=== PATIENT | female | born 1935 | race Caucasian/White ===

== ENCOUNTER 2016-12-25 12:13 | Outpatient (CLI) | payer MEDICARE, OTHER ==
--- NOTE | 2016-12-25 14:51 | MRI Report ---
EXAM: MRI CERVICAL SPINE WITHOUT CONTRAST EXAM DATE: 12/25/2016 12:55 PM. CLINICAL HISTORY: Cervical spine pain. Right upper extremity radiculopathy. COMPARISONS: None. TECHNIQUE: Multiplanar, multisequence T1-weighted and fluid-sensitive sequences of the cervical spine without contrast. Other: None. FINDINGS: Neurologic Structures: There is no evidence for focal cord signal abnormality or edema or other intri nsic cervical cord lesion including where the cord is mildly compressed by disk herniations at multip le levels as described below. Alignment: Slight degenerative anterolisthesis of C4 on C5. Bone Marrow: No focal pathologic appearing marrow signal changes. Interspace Levels/Facets: C1-C2: No central stenosis. Mild chronic hypertrophic degenerative changes around the odontoid proces s. C2-C3: Minimal degenerative disk disease. No stenosis. C3-C4: Mild disk space narrowing. Minimal central stenosis. Broad-based bar-like posterior degenerati ve disk osteophyte complex is present with ventral thecal sac indentation but no cord compression. Mo derate facet arthropathy. Moderate bilateral foraminal stenosis from uncinate process spurring and fa cet hypertrophy. C4-C5: Moderate degenerative disk disease. Mild to moderate facet arthropathy. Broad-based bulge and marginal spurring. More focal 8 x 4 mm disk extrusion laterally to the right, centered at the junctio n of the lateral recess and right neural foramen. The ventral cord is mildly compressed also by this lesion. Mild to moderate central stenosis. The left foramen shows at least mild stenosis. Foraminal s tenosis and right lateral recess stenosis are moderate to marked, correlating to a right C5 radiculop athy. The right side disk herniation also appears to be accompanied by osteophytic degenerative albaro nal bony spurring. C5-C6: Mild disk space narrowing. Moderate central stenosis. Ventral cord flattening. Broad-based pro minent bar-like posterior degenerative disk osteophyte complex with additional smaller more focal lef t posterior paracentral disk herniation or extrusion. Foraminal stenosis bilaterally, mild on the lef t and moderate on the right from additional right intraforaminal disk/osteophyte complex. This could correlate with a right C6 radiculopathy. C6-C7: Mild degenerative disk disease and facet arthropathy. Broad-based bulge. No high-grade stenosi s. C7-T1: Unremarkable. Musculature: Mild diffuse posterior paraspinal muscle fatty atrophy. Other: No focal prevertebral soft tissue thickening. IMPRESSION: Prominent multilevel degenerative cervical spinal spondylosis. The most significant and p rominent appearing degenerative changes with stenosis that may be associated with radiculopathy are o n the right at the C4-C5 and C5-C6 levels as described above. [facility] Referring Provider Line: [phone] SITE ID: [id number]
== END 2016-12-25 12:14 | disposition home or self-care (01) ==
LOC: DI 12:13
PROVIDERS: ATTEND Physician Assistant Medical
DX: M50.31 Other cervical disc degeneration, high cervical region (principal); M47.812 Spondylosis without myelopathy or radiculopathy, cervical region; M50.221 Other cervical disc displacement at C4-C5 level
CPT/HCPCS: 72141

== ENCOUNTER 2017-01-03 08:27 | Outpatient (CLI) | payer MEDICARE, OTHER | END 2017-01-03 08:28 | disposition home or self-care (01) | DX: E03.9 Hypothyroidism, unspecified (principal); I25.10 Atherosclerotic heart disease of native coronary artery without angina pectoris; I10 Essential (primary) hypertension; D64.9 Anemia, unspecified; Z79.899 Other long term (current) drug therapy ==

== ENCOUNTER 2017-01-22 10:10 | Outpatient (CLI) | payer MEDICARE, OTHER | END 2017-01-22 10:11 | disposition home or self-care (01) | DX: Z12.31 Encounter for screening mammogram for malignant neoplasm of breast (principal) ==

== ENCOUNTER 2017-01-22 10:12 | Outpatient (CLI) | payer MEDICARE, OTHER | END 2017-01-22 10:13 | disposition home or self-care (01) | DX: Z78.0 Asymptomatic menopausal state (principal); M85.88 Other specified disorders of bone density and structure, other site ==

== ENCOUNTER 2017-03-05 08:00 | Outpatient (CLI) | payer MEDICARE, OTHER | END 2017-03-05 08:01 | disposition home or self-care (01) | LOC: LAB.R 08:00 | PROVIDERS: ATTEND Physician Assistant Medical | DX: M10.9 Gout, unspecified (principal) | CPT/HCPCS: 84550 ==

== ENCOUNTER 2017-03-05 12:14 | Outpatient (CLI) | payer MEDICARE, OTHER ==
--- NOTE | 2017-03-05 18:43 | XRAY Report ---
RIGHT FOOT, THREE VIEWS: 03/05/2017 CLINICAL HISTORY: An 82-year-old female with foot pain and history of gout. COMPARISON: None. FINDINGS: Focal soft tissue swelling is noted around the medial aspect of the right foot adjacent to the base of the right first metatarsal and adjacent medial cuneiform bone. Focal spurring is seen along the distal medial dorsal aspect of the medial cuneiform bone. No significant erosive change is detected in the adjacent articulation between the base of the first metatarsal and adjacent medial cuneiform bone. No significant joint space narrowing is noted. The MP joints appear normal as do the proximal and distal interphalangeal joints. IMPRESSION: 1. FOCAL SOFT TISSUE SWELLING IS SUGGESTED ALONG THE MEDIAL ASPECT OF THE RIGHT FOOT AT THE ARTICULATION BETWEEN THE BASE OF THE FIRST METATARSAL AND ADJACENT MEDIAL CUNEIFORM BONE. A SMALL SPUR IS SEEN EMANATING FROM THE MEDIAL DORSAL ASPECT OF THE MEDIAL CUNEIFORM BONE. THE SPURRING IS RELATED TO OSTEOARTHRITIS. 2. MP JOINTS INCLUDING THE FIRST MP JOINT APPEAR NORMAL. JOB #: [id number] EXT JOB #: [id number] ASHLIE
== END 2017-03-05 12:15 | disposition home or self-care (01) ==
LOC: DI 12:14
PROVIDERS: ATTEND Physician Assistant Medical
DX: M25.774 Osteophyte, right foot (principal); R22.41 Localized swelling, mass and lump, right lower limb; M10.9 Gout, unspecified
CPT/HCPCS: 84550

== ENCOUNTER 2017-05-03 09:30 | Outpatient (CLI) | payer MEDICARE, OTHER ==
[2017-05-03 12:52] LABS: BASOPHILS # (AUTO) 0.1 10^3/uL (0.0-0.1); EOSINOPHILS # (AUTO) 0.1 10^3/uL (0.0-0.7); EOSINOPHILS % (AUTO) 2.8 %; HCT - HEMATOCRIT 40.2 % (37.0-47.0); HGB - HEMOGLOBIN 13.5 g/dL (12.0-16.0); LYMPHOCYTES # (AUTO) 1.5 10^3/uL (1.5-3.5); LYMPHOCYTES % (AUTO) 28.4 %; MEAN CORPUSCULAR HGB CONC 33.6 g/dL (32.0-36.0); MEAN CORPUSCULAR VOLUME 101.4 fL (81.0-99.0); MEAN PLATELET VOLUME 9.5 fL (7.9-10.8); MONOCYTES # (AUTO) 0.6 10^3/uL (0.0-1.0); MONOCYTES % (AUTO) 11.1 %; NEUTROPHILS % (AUTO) 56.7 %; NUCLEATED RED BLOOD CELLS AUTO 0.1 /100WBC; RED BLOOD COUNT 3.96 10^6/uL (4.20-5.40); RED CELL DISTRIBUTION WIDTH 14.6 % (12.0-15.0); UNCORRECTED WHITE BLOOD COUNT 5.3 x10^3/uL; WHITE BLOOD COUNT 5.3 x10^3/uL (4.8-10.8)
== END 2017-05-03 09:31 | disposition home or self-care (01) ==
LOC: LAB.R 09:30
PROVIDERS: ATTEND Internal Medicine
DX: D50.9 Iron deficiency anemia, unspecified (principal)
CPT/HCPCS: 82728; 85025

== ENCOUNTER 2018-01-07 09:05 | Outpatient (CLI) | payer MEDICARE, OTHER ==
[2018-01-07 13:18] LABS: BASOPHILS % (AUTO) 1.1 %; EOSINOPHILS # (AUTO) 0.1 10^3/uL (0.0-0.7); EOSINOPHILS % (AUTO) 3.2 %; HGB - HEMOGLOBIN 13.8 g/dL (12.0-16.0); LYMPHOCYTES # (AUTO) 1.1 10^3/uL (1.5-3.5); LYMPHOCYTES % (AUTO) 27.1 %; MEAN CORPUSCULAR HEMOGLOBIN 33.1 pg (27.0-31.0); MEAN CORPUSCULAR VOLUME 100.2 fL (81.0-99.0); MEAN PLATELET VOLUME 9.4 fL (7.9-10.8); MONOCYTES # (AUTO) 0.5 10^3/uL (0.0-1.0); MONOCYTES % (AUTO) 12.6 %; NEUTROPHILS # (AUTO) 2.3 10^3/uL (1.5-6.6); PLT - PLATELET COUNT 195 10^3/uL (130-450); RED BLOOD COUNT 4.18 10^6/uL (4.20-5.40); RED CELL DISTRIBUTION WIDTH 13.6 % (12.0-15.0); WHITE BLOOD COUNT 4.1 x10^3/uL (4.8-10.8)
[2018-01-07 13:30] LABS: ALBUMIN 4.3 g/dL (3.2-5.5); ALBUMIN/GLOBULIN RATIO 1.5 (1.0-2.2); BILIRUBIN,TOTAL 0.5 mg/dL (0.2-1.0); CALCIUM 9.7 mg/dL (8.5-10.3); CREATININE 0.9 mg/dL (0.4-1.0); TOTAL PROTEIN 7.1 g/dL (6.7-8.2); URIC ACID 3.9 mg/dL (2.6-7.2)
[2018-01-07 13:45] LABS: THYROID STIMULATING HORMONE 3.84 uIU/mL (0.34-5.60)
[2018-01-07 13:51] LABS: FERRITIN 65.4 ng/mL (11.0-306.8)
== END 2018-01-07 09:06 | disposition home or self-care (01) ==
LOC: LAB.R 09:05
PROVIDERS: ATTEND Internal Medicine
DX: D50.9 Iron deficiency anemia, unspecified (principal); I10 Essential (primary) hypertension; M10.9 Gout, unspecified; E03.9 Hypothyroidism, unspecified
CPT/HCPCS: 80053; 82728; 84443; 84550; 85025

== ENCOUNTER 2019-07-07 09:08 | Outpatient (CLI) | payer MEDICARE, OTHER ==
[2019-07-07 10:03] LABS: CHOL/HDL RATIO 1.9 (<4.4); CHOLESTEROL 169 mg/dL; HDL CHOLESTEROL 90 mg/dL; LDL CHOLESTEROL,CALCULATED 64 mg/dL; LDL/HDL RATIO 0.7 (<4.4); VLDL CHOLESTEROL 15 mg/dL
== END 2019-07-07 09:09 | disposition home or self-care (01) ==
LOC: LAB 09:08
PROVIDERS: ATTEND Family Medicine
DX: Z13.220 Encounter for screening for lipoid disorders (principal); Z13.6 Encounter for screening for cardiovascular disorders
CPT/HCPCS: 36415; 80061; 83721

== ENCOUNTER 2019-09-04 11:47 | Outpatient (CLI) | payer MEDICARE, OTHER ==
[2019-09-04 12:10] LABS: BASOPHILS % (AUTO) 0.8 %; EOSINOPHILS # (AUTO) 0.1 10^3/uL (0.0-0.7); EOSINOPHILS % (AUTO) 2.1 %; HGB - HEMOGLOBIN 11.1 g/dL (12.0-16.0); LYMPHOCYTES # (AUTO) 1.1 10^3/uL (1.5-3.5); MEAN CORPUSCULAR HEMOGLOBIN 29.8 pg (27.0-31.0); MEAN CORPUSCULAR HGB CONC 31.6 g/dL (32.0-36.0); MEAN CORPUSCULAR VOLUME 94.1 fL (81.0-99.0); MEAN PLATELET VOLUME 10.4 fL (7.9-10.8); MONOCYTES # (AUTO) 0.6 10^3/uL (0.0-1.0); MONOCYTES % (AUTO) 15.8 %; PLT - PLATELET COUNT 203 10^3/uL (130-450); RED BLOOD COUNT 3.73 10^6/uL (4.20-5.40); RED CELL DISTRIBUTION WIDTH 15.7 % (12.0-15.0); WHITE BLOOD COUNT 3.8 x10^3/uL (4.8-10.8)
== END 2019-09-04 11:48 | disposition home or self-care (01) ==
LOC: LAB 11:47
PROVIDERS: ATTEND Nurse Practitioner
DX: D50.9 Iron deficiency anemia, unspecified (principal)
CPT/HCPCS: 36415; 85025

== ENCOUNTER 2019-11-19 10:25 | Outpatient (CLI) | payer MEDICARE, OTHER | END 2019-11-19 10:26 | disposition home or self-care (01) | LOC: LAB 10:25 | PROVIDERS: ATTEND Family Medicine | DX: E03.9 Hypothyroidism, unspecified (principal); D50.9 Iron deficiency anemia, unspecified | CPT/HCPCS: 36415; 84443 ==

== ENCOUNTER 2019-12-26 07:20 | Emergency (ER) | payer MEDICARE, OTHER ==
[2019-12-26 07:28] VITALS: BP 168/77
--- NOTE | 2019-12-26 07:34 | ED Physician Documentation ---
PD HPI URI - Stated complaint Stated Complaint: COUGH - Chief complaint Chief Complaint: General - History obtained from History obtained from: Patient - History of Present Illness Timing - onset: Last night Timing duration: Days (1) Timing details: Gradual onset, Still present Associated symptoms: Nasal congestion, Dry cough. No: Fever, Rhinorrhea, Swollen nodes, NVD, Bilateral edema Contributing factors: Sick contact (The patient states her has had a cough congestion and increasing trouble breathing over the last 5 or 6 days and worsened yesterday. He was seen and admitted for pneumonia. He was tested for flu as well as COVID but his test has not resulted yet. The patient was not a llowed to visit her for concern of potential carrier of COVID and they suggested she get tested.). No: Travel, Immunocompromised Similar symptoms before: Has not had sx before Recently seen: Not recently seen Review of Systems Constitutional: denies: Fever, Chills, Myalgias Nose: reports: Congestion (mild). denies: Rhinorrhea / runny nose Throat: denies: Sore throat Cardiac: denies: Chest pain / pressure Respiratory: reports: Cough. 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 HEENT: Cataracts - Present Medications Home Medications: Ambulatory Orders Medication Instructions Recorded Confirmed Aspirin [Children's Aspirin] 81 mg PO DAILY 01/11/15 09/28/16 Calcium Carbonate [Calcium] 1,200 mg PO DAILY 01/11/15 09/28/16 Flaxseed [Flaxseed Oil] 1 cap PO DAILY 01/11/15 09/28/16 Levothyroxine [Synthroid] 112 mcg PO QDAC 01/11/15 09/28/16 Metoprolol Succinate [Toprol Xl] 25 mg PO DAILY 01/11/15 09/28/16 Multivitamin [Multivitamins] 1 each PO DAILY 01/11/15 09/28/16 Omeprazole [PriLOSEC] 25 mg PO DAILY 01/11/15 09/28/16 Telmisartan [Micardis] 80 mg PO DAILY 01/11/15 09/28/16 Tolterodine Tartrate [Detrol LA] 2 mg ORAL DAILY 01/11/15 09/28/16 predniSONE [Prednisone] 15 mg PO DAILY 09/28/16 09/28/16 - Allergies Allergies/Adverse Reactions: Allergies Allergy/AdvReac Type Severity Reaction Status Date / Time meperidine HCl * Allergy Intermediate Hives Verified 09/29/16 09:51 [From Demerol] Iodine and Iodide Containing Allergy Mild Rash Verified 09/29/16 09:51 Produc PD ED PE NORMAL - Vitals Vital signs reviewed: Yes - General General: Alert and oriented X 3, No acute distress, Well developed/nourished - HEENT HEENT: Ears normal, Pharynx benign - Neck Neck: Supple, no meningeal sign, No adenopathy - Cardiac Cardiac: RRR, No murmur - Respiratory Respiratory: Clear bilaterally - Abdomen Abdomen: Soft, Non tender - Derm Derm: Normal color, Warm and dry - Neuro Neuro: Alert and oriented X 3, No motor deficit, Normal speech Results - Vitals Vitals: Vital Signs - 24 hr 12/26/19 07:26 Temperature 36.9 C Heart Rate 79 Respiratory 18 Rate Blood Pressure 168/77 H O2 Saturation 96 Oxygen O2 Source Room air PD MEDICAL DECISION MAKING - ED course Complexity details: considered differential (The patient is just started with a cough. Her however is hospitalized with pneumonia and had cough and congestion for 5 or 6 days. We can test her for CO VID to evaluate for that. Her 's test has not resulted yet. This will allow her some anticipatory guidance regarding potential illness and also if negative will allow her access to visit her .), d/w patient Departure - Departure Disposition: 01 Home, Self Care Clinical Impression: Cough Condition: Stable Record reviewed to determine appropriate education?: Yes Instructions: ED URI Viral Follow-Up: Davin Pineda MD [Primary Care Provider] - Comments: The result of the COV ID test will be 1 to 2 days. Hopefully if you and your 's tests are negative, then that will allow your access to visit him. Meanwhile stay well-hydrated. We will presume this is a viral illness of some sort. [id number] cough medicine if needed. Otherwise return if worsening symptoms or trouble breathing.
== END 2019-12-26 08:15 | disposition home or self-care (01) ==
LOC: ED 07:20
DX: R05 Cough (principal); R09.81 Nasal congestion; I10 Essential (primary) hypertension; Z79.82 Long term (current) use of aspirin
CPT/HCPCS: 81599; 99283

== ENCOUNTER 2020-06-08 14:20 | Outpatient (CLI) | payer MEDICARE, OTHER ==
[2020-06-08 18:23] LABS: BASOPHILS % (AUTO) 0.7 %; EOSINOPHILS % (AUTO) 0.7 %; HGB - HEMOGLOBIN 7.2 g/dL (12.0-16.0); LYMPHOCYTES # (AUTO) 1.2 10^3/uL (1.5-3.5); LYMPHOCYTES % (AUTO) 26.5 %; MEAN CORPUSCULAR HEMOGLOBIN 22.9 pg (27.0-31.0); MEAN CORPUSCULAR HGB CONC 29.4 g/dL (32.0-36.0); MEAN CORPUSCULAR VOLUME 77.8 fL (81.0-99.0); MEAN PLATELET VOLUME 11.3 fL (7.9-10.8); MONOCYTES # (AUTO) 0.7 10^3/uL (0.0-1.0); NEUTROPHILS # (AUTO) 2.4 10^3/uL (1.5-6.6); NEUTROPHILS % (AUTO) 55.6 %; PLT - PLATELET COUNT 225 10^3/uL (130-450); RED BLOOD COUNT 3.15 10^6/uL (4.20-5.40); RED CELL DISTRIBUTION WIDTH 20.7 % (12.0-15.0); WHITE BLOOD COUNT 4.4 x10^3/uL (4.8-10.8)
[2020-06-08 18:27] LABS: CREATININE,URINE 124.9 mg/dL; MICROALBUM/CREATININE RATIO,UR 5.6 ug/mg (<30.0); MICROALBUMIN,URINE 0.7 mg/dL (0-300.0)
[2020-06-08 18:31] LABS: ALBUMIN 3.8 g/dL (3.2-5.5); ALBUMIN/GLOBULIN RATIO 1.4 (1.0-2.2); BILIRUBIN,TOTAL 0.5 mg/dL (0.2-1.0); CALCIUM 9.5 mg/dL (8.5-10.3); CREATININE 0.7 mg/dL (0.4-1.0); TOTAL PROTEIN 6.5 g/dL (6.7-8.2)
[2020-06-08 18:56] LABS: PLATELET ESTIMATE, MANUAL NORMAL (130-450,000) (NORMAL); PLATELET MORPHOLOGY NORMAL APPEARANCE (NORMAL)
== END 2020-06-08 23:59 | disposition home or self-care (01) ==
LOC: LAB.WCP 14:20
PROVIDERS: ATTEND Physician Assistant Medical
DX: I10 Essential (primary) hypertension (principal); E03.9 Hypothyroidism, unspecified; D50.9 Iron deficiency anemia, unspecified
CPT/HCPCS: 36415; 80053; 82043; 82570; 84443; 85025

== ENCOUNTER 2020-06-16 16:58 | Outpatient (CLI) | payer MEDICARE, OTHER ==
[2020-06-16 18:21] LABS: ABSOLUTE RETICS # AUTO 0.046 10^6/uL (0.020-0.110); EOSINOPHILS # (AUTO) 0.1 10^3/uL (0.0-0.7); EOSINOPHILS % (AUTO) 1.8 %; HGB - HEMOGLOBIN 7.3 g/dL (12.0-16.0); LYMPHOCYTES # (AUTO) 1.4 10^3/uL (1.5-3.5); MEAN CORPUSCULAR HEMOGLOBIN 22.1 pg (27.0-31.0); MEAN CORPUSCULAR HGB CONC 29.1 g/dL (32.0-36.0); MEAN CORPUSCULAR VOLUME 76.1 fL (81.0-99.0); MEAN PLATELET VOLUME 11.1 fL (7.9-10.8); MONOCYTES # (AUTO) 0.7 10^3/uL (0.0-1.0); MONOCYTES % (AUTO) 17.1 %; NEUTROPHILS # (AUTO) 1.8 10^3/uL (1.5-6.6); NEUTROPHILS % (AUTO) 45.8 %; PLT - PLATELET COUNT 240 10^3/uL (130-450); RED CELL DISTRIBUTION WIDTH 20.4 % (12.0-15.0)
[2020-06-16 18:39] LABS: PLATELET ESTIMATE, MANUAL NORMAL (130-450,000) (NORMAL); PLATELET MORPHOLOGY NORMAL APPEARANCE (NORMAL)
[2020-06-16 18:57] LABS: % IRON SATURATION 2 % (20-50); IRON 10 ug/dL (28-170); TOTAL IRON BINDING CAPACITY 448 ug/dL (250-450); TRANSFERRIN 320 mg/dL (192-382)
[2020-06-16 19:03] LABS: FERRITIN 12.4 ng/mL (11.0-306.8)
[2020-06-16 19:51] LABS: FOLATE > 49.60 ng/mL (5.90 - >24.8)
== END 2020-06-16 23:59 | disposition home or self-care (01) ==
LOC: LAB.WCP 16:58
PROVIDERS: ATTEND Physician Assistant Medical
DX: D50.9 Iron deficiency anemia, unspecified (principal)
CPT/HCPCS: 36415; 82607; 82728; 82746; 83540; 84466; 85025; 85045

== ENCOUNTER 2020-06-23 08:00 | Outpatient (CLI) | payer MEDICARE, OTHER | END 2020-06-23 23:59 | disposition home or self-care (01) | LOC: LAB 08:00 | PROVIDERS: ATTEND Physician Assistant Medical | DX: D50.9 Iron deficiency anemia, unspecified (principal) | CPT/HCPCS: 82270 ==

== ENCOUNTER 2020-07-19 11:48 | Outpatient (CLI) | payer MEDICARE, OTHER ==
[2020-07-19 12:14] LABS: HGB - HEMOGLOBIN 7.4 g/dL (12.0-16.0); MEAN CORPUSCULAR HEMOGLOBIN 21.9 pg (27.0-31.0); MEAN CORPUSCULAR HGB CONC 29.1 g/dL (32.0-36.0); MEAN CORPUSCULAR VOLUME 75.1 fL (81.0-99.0); MEAN PLATELET VOLUME 9.6 fL (7.9-10.8); RED BLOOD COUNT 3.38 10^6/uL (4.20-5.40); RED CELL DISTRIBUTION WIDTH 20.7 % (12.0-15.0); WHITE BLOOD COUNT 4.4 x10^3/uL (4.8-10.8)
== END 2020-07-19 11:49 | disposition home or self-care (01) ==
LOC: LAB 11:48
PROVIDERS: ATTEND Surgery
DX: R19.7 Diarrhea, unspecified (principal); R60.9 Edema, unspecified
CPT/HCPCS: 36415; 85027

== ENCOUNTER 2020-07-28 10:49 | Outpatient (CLI) | payer MEDICARE, OTHER ==
[2020-07-28 11:07] LABS: BASOPHILS % (AUTO) 0.6 %; EOSINOPHILS % (AUTO) 0.6 %; HGB - HEMOGLOBIN 8.9 g/dL (12.0-16.0); LYMPHOCYTES # (AUTO) 1.4 10^3/uL (1.5-3.5); LYMPHOCYTES % (AUTO) 28.2 %; MEAN CORPUSCULAR HEMOGLOBIN 23.8 pg (27.0-31.0); MEAN CORPUSCULAR HGB CONC 29.3 g/dL (32.0-36.0); MEAN CORPUSCULAR VOLUME 81.3 fL (81.0-99.0); MEAN PLATELET VOLUME 9.6 fL (7.9-10.8); MONOCYTES # (AUTO) 0.6 10^3/uL (0.0-1.0); MONOCYTES % (AUTO) 11.4 %; NEUTROPHILS % (AUTO) 58.4 %; PLT - PLATELET COUNT 244 10^3/uL (130-450); RED BLOOD COUNT 3.74 10^6/uL (4.20-5.40); RED CELL DISTRIBUTION WIDTH 28.3 % (12.0-15.0); WHITE BLOOD COUNT 5.1 x10^3/uL (4.8-10.8)
[2020-07-28 11:25] LABS: CALCIUM 10.1 mg/dL (8.5-10.3); CREATININE 0.9 mg/dL (0.4-1.0)
[2020-07-28 11:32] LABS: PLATELET ESTIMATE, MANUAL NORMAL (130-450,000) (NORMAL); PLATELET MORPHOLOGY NORMAL APPEARANCE (NORMAL); RBC MORPHOLOGY (MULTIPLE) 3+ ANISOCYTOSIS (NORMAL)
== END 2020-07-28 10:50 | disposition home or self-care (01) ==
LOC: LAB 10:49
PROVIDERS: ATTEND Physician Assistant Medical
DX: D50.9 Iron deficiency anemia, unspecified (principal); R60.9 Edema, unspecified
CPT/HCPCS: 36415; 80048; 82728; 83540; 84466; 85025

== ENCOUNTER 2020-08-06 12:27 | Day surgery (SDC) | payer MEDICARE, OTHER ==
[2020-08-06] MEDS ORDERED: fentaNYL 100 MCG/2 ML VIAL IVP ONE (12:28)
[2020-08-06] MEDS ORDERED: MIDAZOLAM 2 MG/2 ML VIAL IVP ONE (12:28)
[2020-08-06] MEDS ORDERED: LIDO GARGLE 30 ML BOTTLE ONE (12:49)
[2020-08-06] MEDS ORDERED: LACTATED RINGERS 1,000 ML IV ONE ×2 (13:02)
[2020-08-06] MEDS ORDERED: LIDO GARGLE 30 ML BOTTLE PO ONE (13:20)
[2020-08-06] MEDS ORDERED: BENZOCAINE/TETRACAINE/BUTAMBEN 20 GM TOP ONE (13:21)
[2020-08-06] MEDS ORDERED: LACTATED RINGERS 550 ML IV ONE (13:50)
[2020-08-06 14:20] VITALS: BP 128/59
== END 2020-08-06 12:28 | disposition home or self-care (01) ==
LOC: SDS 12:27
PROVIDERS: ATTEND Surgery
PROC: 0DB78ZX Excision of Stomach, Pylorus, Via Natural or Artificial Opening Endoscopic, Diagnostic (ICD-10-PCS; 2020-08-06)
PROC: 0DB68ZX Excision of Stomach, Via Natural or Artificial Opening Endoscopic, Diagnostic (ICD-10-PCS; 2020-08-06)
PROC: 0DB58ZX Excision of Esophagus, Via Natural or Artificial Opening Endoscopic, Diagnostic (ICD-10-PCS; 2020-08-06)
PROC: 0DB98ZX Excision of Duodenum, Via Natural or Artificial Opening Endoscopic, Diagnostic (ICD-10-PCS; principal; 2020-08-06 10:45)
DX: D50.9 Iron deficiency anemia, unspecified (principal); R13.10 Dysphagia, unspecified; K31.7 Polyp of stomach and duodenum; K44.9 Diaphragmatic hernia without obstruction or gangrene; Z79.899 Other long term (current) drug therapy; Z86.010 Personal history of colon polyps
CPT/HCPCS: 43239; 87081; A9270; J7120

== ENCOUNTER 2020-08-10 13:28 | Outpatient (CLI) | payer MEDICARE, OTHER | END 2020-08-10 13:29 | disposition home or self-care (01) | LOC: DI 13:28 | PROVIDERS: ATTEND Physician Assistant Medical | DX: R60.0 Localized edema (principal); I34.0 Nonrheumatic mitral (valve) insufficiency; I27.20 Pulmonary hypertension, unspecified | CPT/HCPCS: 93306 ==

== ENCOUNTER 2020-08-25 08:00 | Outpatient (CLI) | payer MEDICARE, OTHER ==
[2020-08-25 18:10] LABS: ABSOLUTE RETICS # AUTO 0.062 10^6/uL (0.020-0.110); BASOPHILS % (AUTO) 0.4 %; EOSINOPHILS % (AUTO) 0.8 %; HGB - HEMOGLOBIN 11.2 g/dL (12.0-16.0); LYMPHOCYTES # (AUTO) 1.5 10^3/uL (1.5-3.5); LYMPHOCYTES % (AUTO) 30.7 %; MEAN CORPUSCULAR HEMOGLOBIN 28.2 pg (27.0-31.0); MEAN CORPUSCULAR HGB CONC 30.9 g/dL (32.0-36.0); MEAN CORPUSCULAR VOLUME 91.2 fL (81.0-99.0); MEAN PLATELET VOLUME 10.4 fL (7.9-10.8); MONOCYTES # (AUTO) 0.4 10^3/uL (0.0-1.0); MONOCYTES % (AUTO) 8.9 %; NEUTROPHILS # (AUTO) 2.9 10^3/uL (1.5-6.6); NEUTROPHILS % (AUTO) 58.8 %; PLT - PLATELET COUNT 168 10^3/uL (130-450); RED BLOOD COUNT 3.97 10^6/uL (4.20-5.40); WHITE BLOOD COUNT 4.9 x10^3/uL (4.8-10.8)
[2020-08-25 18:38] LABS: % IRON SATURATION 28 % (20-50); IRON 92 ug/dL (28-170); TOTAL IRON BINDING CAPACITY 323 ug/dL (250-450); TRANSFERRIN 231 mg/dL (192-382)
[2020-08-25 18:44] LABS: FREE T3 3.26 pg/mL (2.5-3.9); THYROID STIMULATING HORMONE 0.23 uIU/mL (0.34-5.60)
[2020-08-25 18:45] LABS: FREE T4 (FREE THYROXINE) 1.07 ng/dL (0.58-1.64)
[2020-08-25 18:50] LABS: FERRITIN 83.2 ng/mL (11.0-306.8)
[2020-08-25 22:06] LABS: PLATELET ESTIMATE, MANUAL NORMAL (130-450,000) (NORMAL); PLATELET MORPHOLOGY NORMAL APPEARANCE (NORMAL)
== END 2020-08-25 23:59 | disposition home or self-care (01) ==
LOC: LAB.WCP 08:00
PROVIDERS: ATTEND Family Medicine
DX: D50.9 Iron deficiency anemia, unspecified (principal); E03.9 Hypothyroidism, unspecified
CPT/HCPCS: 36415; 82728; 83540; 84439; 84443; 84466; 84481; 85025; 85045

== ENCOUNTER 2020-08-26 10:00 | Outpatient (CLI) | payer MEDICARE, OTHER | END 2020-08-26 23:59 | disposition home or self-care (01) | LOC: LAB.R 10:00 | PROVIDERS: ATTEND Family Medicine | DX: A04.72 Enterocolitis due to Clostridium difficile, not specified as recurrent (principal) | CPT/HCPCS: 87493 ==

== ENCOUNTER 2020-12-24 13:53 | Inpatient (IN) | payer MEDICARE, OTHER ==
[2020-12-24 14:32] LABS: BASOPHILS % (AUTO) 0.2 %; EOSINOPHILS # (AUTO) 0.2 10^3/uL (0.0-0.7); EOSINOPHILS % (AUTO) 2.8 %; HGB - HEMOGLOBIN 12.4 g/dL (12.0-16.0); LYMPHOCYTES # (AUTO) 0.5 10^3/uL (1.5-3.5); LYMPHOCYTES % (AUTO) 9.4 %; MEAN CORPUSCULAR HGB CONC 32.6 g/dL (32.0-36.0); MEAN CORPUSCULAR VOLUME 104.1 fL (81.0-99.0); MEAN PLATELET VOLUME 10.6 fL (7.9-10.8); MONOCYTES # (AUTO) 0.3 10^3/uL (0.0-1.0); MONOCYTES % (AUTO) 5.4 %; NEUTROPHILS # (AUTO) 4.7 10^3/uL (1.5-6.6); NEUTROPHILS % (AUTO) 81.9 %; PLT - PLATELET COUNT 157 10^3/uL (130-450); RED BLOOD COUNT 3.65 10^6/uL (4.20-5.40); RED CELL DISTRIBUTION WIDTH 17.4 % (12.0-15.0); WHITE BLOOD COUNT 5.7 x10^3/uL (4.8-10.8)
[2020-12-24 14:41] LABS: BILIRUBIN,URINE NEGATIVE (NEGATIVE); GLUCOSE, URINE (UA) NEGATIVE (NEGATIVE); KETONES,URINE (UA) NEGATIVE (NEGATIVE); LEUKOCYTE ESTERASE, URINE NEGATIVE (NEGATIVE); NITRITE,URINE NEGATIVE (NEGATIVE); OCCULT BLOOD,URINE NEGATIVE (NEGATIVE); PROTEIN,URINE NEGATIVE (NEGATIVE); UROBILINOGEN,URINE 0.2 (NORMAL) E.U./dL (NORMAL)
[2020-12-24 14:42] LABS: CLARITY,URINE CLEAR (CLEAR)
[2020-12-24 14:49] LABS: ALBUMIN 4.2 g/dL (3.2-5.5); ALBUMIN/GLOBULIN RATIO 1.5 (1.0-2.2); CALCIUM 9.8 mg/dL (8.5-10.3); POTASSIUM 3.2 mmol/L (3.5-5.0)
[2020-12-24] MEDS ORDERED: IOVERSOL 320 100 ML VIAL IVP ONE ×2 (14:56→16:02)
[2020-12-24] MEDS ORDERED: MORPHINE 2 MG/ML CARPUJECT IVP STA ×2 (15:28→17:10)
--- NOTE | 2020-12-24 15:29 | ED Physician Documentation ---
PD HPI ABD PAIN - Stated complaint Stated Complaint: ABD PX - Chief complaint Chief Complaint: Abd Pain - History obtained from History obtained from: Patient - History of Present Illness Timing - onset: Last night Pain level max: 8 Pain level now: 6 Quality: Aching, Pain Location: RLQ, Suprapubic, LLQ Associated symptoms: No: Fever, Nausea, Vomiting - Additional information Additional information: Patient is an 85-year-old female who presents to the emergency department with lower abdominal pain starting last night and worsening throughout the day. She had a colonoscopy yesterday at [place] in [place] with [facility], Dr. Joseph. No vomiting. No diarrhea. She states she is not passing much flatus. She is urinating without difficulty. She talked to the on-call hot top liner who referred her here for a CT scan. Worse with movement and palpation. Nothing makes it better. 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 HEENT: Cataracts - Present Medications Home Medications: Ambulatory Orders Medication Instructions Recorded Confirmed Calcium Carbonate [Calcium] 1,200 mg PO DAILY 01/11/15 11/24/20 Levothyroxine [Synthroid] 100 mcg PO QDAC 01/11/15 11/24/20 Metoprolol Succinate [Toprol Xl] 50 mg PO DAILY 01/11/15 11/24/20 Multivitamin [Multivitamins] 1 each PO DAILY 01/11/15 11/24/20 Omeprazole [PriLOSEC] 25 mg PO DAILY 01/11/15 11/24/20 Tolterodine Tartrate [Detrol LA] 2 mg ORAL DAILY 01/11/15 11/24/20 Allopurinol [Zyloprim] 1 tab PO DAILY 08/05/20 11/24/20 Furosemide [Lasix] 40 mg PO DAILY 08/05/20 11/24/20 Potassium Chloride 10 meq PO DAILY 08/05/20 11/24/20 Valsartan [Diovan] 160 mg PO DAILY 08/05/20 11/24/20 - Allergies Allergies/Adverse Reactions: Allergies Allergy/AdvReac Type Severity Reaction Status Date / Time meperidine HCl * Allergy Intermediate Hives Verified 12/24/20 13:56 [From Demerol] Iodine and Iodide Containing Allergy Mild Rash Verified 12/24/20 13:56 Produc - Social History Does the pt smoke?: No Smoking Status: Never smoker Does the pt drink ETOH?: Yes Does the pt have substance abuse?: No - Immunizations Immunizations are current?: Yes PD ED PE NORMAL - Vitals Vital signs reviewed: Yes - General General: Alert and oriented X 3, No acute distress - HEENT HEENT: Moist mucous membranes - Neck Neck: Supple, no meningeal sign - Cardiac Cardiac: RRR - Respiratory Respiratory: No respiratory distress, Clear bilaterally - Abdomen Abdomen: Soft, Non distended, Other (Tender to palpation along the lower aspect of the abdomen. Positive guarding. Positive rebound.) - Back Back: No spinal TTP - Derm Derm: Warm and dry - Extremities Extremities: No calf tenderness / cord - Neuro Neuro: Alert and oriented X 3 - Psych Psych: Normal mood, Normal affect Results - Vitals Vitals: Vital Signs - 24 hr 12/24/20 12/24/20 13:56 15:55 Temperature 36.8 C Heart Rate 91 82 Respiratory 19 15 Rate Blood Pressure 142/69 H 150/64 H O2 Saturation 98 95 Oxygen O2 Source Room air - Labs Labs: Laboratory Tests 12/24/20 12/24/20 12/24/20 14:15 14:24 14:24 WBC 5.7 RBC 3.65 L Hgb 12.4 Hct 38.0 MCV 104.1 H MCH 34.0 H MCHC 32.6 RDW 17.4 H Plt Count 157 MPV 10.6 Neut # (Auto) 4.7 Lymph # (Auto) 0.5 L Hamb[place] # (Auto) 0.3 Eos # (Auto) 0.2 Baso # (Auto) 0.0 Absolute Nucleated RBC 0.00 Nucleated RBC % 0.0 Sodium 139 Potassium 3.2 L Chloride 104 Carbon Dioxide 21 Anion Gap 14.0 H BUN 22 H Creatinine 1.0 Estimated GFR (MDRD) 53 L Glucose 125 H Calcium 9.8 Total Bilirubin 1.0 AST 26 ALT 20 Alkaline Phosphatase 85 Total Protein 7.0 Albumin 4.2 Globulin 2.8 Albumin/Globulin Ratio 1.5 Lipase 19 L Urine Color YELLOW Urine Clarity CLEAR Urine pH 5.0 Ur Specific [place] 1.020 Urine Protein NEGATIVE Urine Glucose (UA) NEGATIVE Urine Ketones NEGATIVE Urine Occult Blood NEGATIVE Urine Nitrite NEGATIVE Urine Bilirubin NEGATIVE Urine Urobilinogen 0.2 (NORMAL) Ur Leukocyte Esterase NEGATIVE Ur Microscopic Review NOT INDICATED Urine Culture Comments NOT INDICATED - Rads (name of study) abd/pelvis CT Radiology: Prelim report reviewed, EMP read contemporaneously, See rad report PD MEDICAL DECISION MAKING - ED course Complexity details: reviewed results, re-evaluated patient, considered differential, d/w patient, d/w licensed tax consultant ED course: 85-year-old female presents to the emergency department lower abdominal pain worsening after her colonoscopy yesterday by [facility] at [place] in [place], Dr. Joseph. She had a 3 mm polyp removed. Her CT scan does show diffuse colonic wall thickening. No evidence of perforation. Pain is improved with morphine. Given IV antibiotics. Her abdomen remains significantly tender on examination. Patient will likely need observation overnight, discussed the case with Dr. Whyte, general surgery on-call who recommends contacting her hot top liner first. This is to see if they would like to observe her at [place] in [place] or if they would rather her be monitored here. Case will be signed out to Dr. Archuleta, see his note for further details. CT abd/pelvis: IMPRESSION: 1. Suggestion of mild diffuse colonic wall thickening which may represent low- grade infectious or inflammatory colitis. Sigmoid diverticulosis without evidence of acute diverticulitis. Appendix is not definitively identified. Early appendicitis cannot be excluded. No abscess collection. Small amount of free fluid in lower abdomen and pelvis. No gross free air. 2. Distal gastric wall thickening particularly involving the pylorus and gastric antrum. Possible proximal duodenal wall thickening. Finding may represent gastritis and duodenitis. 3. Hypodensities noted in right and left hepatic lobes as described above which may represent hepatic cysts. Departure - Departure Clinical Impression: Abdominal pain Qualifiers: Abdominal location: lower abdomen, unspecified Qualified Code(s): R10.30 - Lower abdominal pain, unspecified Condition: Stable
--- NOTE | 2020-12-24 16:31 | CT Report ---
PROCEDURE: Abdomen/Pelvis W INDICATIONS: abdominal pain s/p colonoscopy CONTRAST: IV CONTRAST: Optiray 320 ml: 100 PO CONTRAST: *NO PO CONTRAST TECHNIQUE: After the administration of IV contrast, 5 mm thick sections acquired from the diaphragms to the symp hysis. 5 mm thick coronal and sagittal reformats were acquired. For radiation dose reduction, the f ollowing was used: automated exposure control, adjustment of mA and/or kV according to patient size. COMPARISON: None. FINDINGS: Image quality: Excellent. ABDOMEN: Lung bases: Bibasilar dependent atelectasis are seen posteriorly. Bases are clear. Heart size is nor mal. Solid organs: Spleen is normal in size and enhancement. Liver is normal in size. A well-circumscribed 1.7 cm hypodense structure is noted in lateral periphery of right hepatic lobe anterior segment. Tin y 3 mm hypodensity in anterior periphery of left hepatic lobe is also seen and is too small to charac terize. Gallbladder it is well-distended and shows no gross abnormality. Biliary system is non dilat ed. Pancreas enhances normally. No adrenal nodules. Kidneys demonstrate normal size and enhancemen t, without hydronephrosis. Peritoneum and bowel: There is a small hiatal hernia. No evidence of bowel obstruction. There is sugg estion of distal gastric wall thickening with narrowing of the lumen possibly extending to involve th e proximal and midportion of torn normal. Mild diffuse colonic wall thickening is seen with mild esthela colonic fat stranding suggestive of low-grade colitis. Small amount of free fluid in lower abdomen an d pelvis is seen. No gross peritoneal free air. No discrete abscess collection. Colonic diverticulosi s is seen, no CT evidence of acute diverticulitis. Appendix is not definitively identified in right l ower quadrant abdomen. Nodes and vessels: No retroperitoneal or mesenteric adenopathy by size criteria. Aorta and inferior vena cava are normal in size. Miscellaneous: No ventral hernias. PELVIS: Genitourinary: Bladder wall thickness is normal. Miscellaneous: No inguinal hernias or adenopathy. Bones: No suspicious bony lesions. No vertebral body compression fractures. IMPRESSION: 1. Suggestion of mild diffuse colonic wall thickening which may represent low-grade infectious or inf lammatory colitis. Sigmoid diverticulosis without evidence of acute diverticulitis. Appendix is not d efinitively identified. Early appendicitis cannot be excluded. No abscess collection. Small amount of free fluid in lower abdomen and pelvis. No gross free air. 2. Distal gastric wall thickening particularly involving the pylorus and gastric antrum. Possible pro ximal duodenal wall thickening. Finding may represent gastritis and duodenitis. 3. Hypodensities noted in right and left hepatic lobes as described above which may represent hepatic cysts. Reviewed by: Ezra Thornton MD on 12/24/2020 4:30 PM PST Approved by: Ezra Thornton MD on 12/24/2020 4:30 PM PST Station ID: [id number]
[2020-12-24] MEDS ORDERED: PIPERACILLIN/TAZOBACTAM 3.375 GM in SODIUM CHLORIDE 0.9% MINIBAG 100 ML IV STA (16:46)
--- NOTE | 2020-12-24 17:04 | ED Physician Documentation ---
ED Addendum - Addendum Addendum: 12/24/20 17:[address] Dennison at shift change. Briefly this is an 85-year-old woman with lower abdominal pain after colonoscopy. She has a CT showing free fluid and colonic inflammation and is tender out of proportion to normal post colonoscopy status. He had discussed with Dr. Whyte who recommended consulting with Mitesh ALDANA and Dr. Larry spoke with Dr. Argueta who recommended observation here with serial exams. I talked with Dr. Whyte again and he will write orders.
[2020-12-24] MEDS ORDERED: D5.45NS W/20 MEQ KCL 1,000 ML IV STA (17:59)
[2020-12-24] MEDS ORDERED: D5.45NS W/20 MEQ KCL 1,000 ML IV SCH (18:00)
[2020-12-24] MEDS ORDERED: ONDANSETRON 4 MG/2 ML VIAL IVP PRN (18:01)
--- NOTE | 2020-12-24 18:01 | SURGERY HX AND PHYSICAL(T) ---
Surgical History & Physical - Chief Complaint/HPI Chief Complaint: Abdominal pain/post-colonoscopy History of Present Illness: 85-year-old female status post colonoscopy/endoscopies presenting with severe abdominal pain. Multiple polypectomies/interventions as well as thermal ablation for ang iodysplasia as well. CT scan as follows: Impression: 1. Suggestion of mild diffuse colonic wall thickening which raised may progress represent low-grade infectious or inflammatory colitis. Sigmoid diverticulosis without evidence of acute diverticulitis. 2. Appendix is not definitively identified. Early appendicitis cannot be excluded. No abscess collection. Small amount of free fluid in lower abdomen and pelvis. No gross free air. 3. Distal gastric wall thickening particularly involving the pylorus and gastric antrum. Possible proximal duodenal wall thickening. Finding may represent gastritis and duodenitis. 4. Hypodensities noted in right and left hepatic lobes as described above which may represent hepatic cysts. Emergency room called primary endoscopist after speaking with surgery and they requested admission for observation. Endoscopy report with the following impressions: 1. Status post cold snare polypectomy transverse colon 3mm removed 2. Noted diverticulosis within sigmoid colon without diverticulitis 3. Nonbleeding internal hemorrhoid 4. Angiodysplastic lesions - 7 total; treated ARGON beam coagulation (Cecum, Appendiceal Orificie) - PMH/PSH/Social Hx Does the pt have a hx of MRSA?: No Eyes, Ears, Nose, Throat: None Cardiovascular: Hypertension Respiratory: None Skin: Rosacea Endocrine/Autoimmune: HyPOthyroidism Gastrointestinal: GERD Urinary: None Musculoskeletal: Osteoarthritis, Gout Psychiatric: None General: 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 Urologic: Bladder surgery Eyes Ears Nose Throat (EENT): Cataracts Smoking Status: Never smoker Does the pt drink ETOH?: Yes Frequency: Daily Number: 1 Amount/day: cocktail Does the pt have substance abuse?: No - Home Meds and Allergies Home Medications: Calcium Carbonate [Calcium] 1,200 mg PO DAILY 01/11/15 Metoprolol Succinate [Toprol Xl] 50 mg PO DAILY 01/11/15 Multivitamin [Multivitamins] 1 each PO DAILY 01/11/15 Omeprazole [PriLOSEC] 20 mg PO DAILY 01/11/15 Tolterodine Tartrate [Detrol LA] 2 mg PO DAILY 01/11/15 Allopurinol [Zyloprim] 300 mg PO DAILY 08/05/20 Furosemide [Lasix] 40 mg PO DAILY 08/05/20 Potassium Chloride 10 meq PO DAILY 08/05/20 Valsartan [Diovan] 160 mg PO DAILY 08/05/20 Levothyroxine Sodium [Synthroid] 75 mcg PO QDAC 12/25/20 Allergies/Adverse Reactions: Allergies Allergy/AdvReac Type Severity Reaction Status Date / Time meperidine HCl * Allergy Intermediate Hives Verified 12/24/20 13:56 [From Demerol] Iodine and Iodide Containing Allergy Mild Rash Verified 12/24/20 13:56 Produc - Review of Systems Constitutional: Fatigue, Fever Gastrointestinal: Abdominal pain, Constipation - Vital Signs Heart Rate: 82 Blood Pressure: 150/64 Temperature: 36.8 C Respiratory Rate: 15 O2 Saturation: 95 Weight (kg): 63.503 kg Height: 1.6 m - Physical Exam General Appearance: positive: Alert, Mild distress Eyes Bilatera: positive: Normal inspection, PERRL, EOMI ENT: positive: ENT inspection nml Neck: positive: Nml inspection Respiratory: positive: Chest non-tender, No respiratory distress, Breath sounds nml. negative: Wheezes, Rales, Rhonchi Cardiovascular: positive: Regular rate & rhythm Abdomen: positive: Tenderness, Other (Abdomen distended, diffuse tenderness to palpation, no global peritonitis.). negative: Guarding, Rebound Skin: positive: Color nml Extremities: positive: Non-tender, Full ROM, Nml appearance, No pedal edema Neurologic/Psychiatric: positive: Oriented x3, CN's nml (2-12), Motor nml, Sensation nml, Mood/affect nml, Disoriented to person - Patient Review Patient Review: Problems were reviewed with the patient during this visit. Medications were reviewed with the patient during this visit. Allergies were reviewed this patient during this visit. Pertinent Tests Reviewed: All pertitent test for this patient were reviewed. - Assessment & Plan Assessment and Plan: Hospital day #0/ s/p listed procedue (outpatient colonoscopy with argon being ablation of multiple angio dysplastic lesions as well as polypectomy). History of hypertension and hypothyroidism. Persistent abdominal pain in spite of antibiotics and bowel rest. Initially admitted observation however continues with abdominal discomfort. Concern for post polypectomy syndrome versus contained perforation from argon ablation notably in the right colon where mural thickness is comparably thinner and complications are higher. Convert to admission with continued serial abdominal exams. (1) GI - IVF, bowel rest. GI ppx. Anticipate ileus. Opiate sparring analgesia. (2) SURGERY - we will order repeat CAT scan with p.o. and rectal contrast to evaluate for perforation given the patient's persistent abdominal discomfort. (3) Renal/Lytes - continue IVF. Renal indices within normal limits. Hypokalemia will replace. (4) Respiratory - O2 as necessary. Continue IS. Diuresis. (5) Heme - Will hold DVT ppx. H/H stable. (6) Cardiovascular - HD acceptable. (7) Neuro - Opiate sparring analgesia. Antispasmodics with Robaxin. (8) PT/OT. (9) INFECTIOUS DISEASE - continue Cipro and Flagyl together with serial abdominal exams
[2020-12-24 18:14] LABS: B. PARAPERTUSSIS- RESP PCR PAN NOT DETECTED; B. PERTUSSIS- RESP PCR PANEL NOT DETECTED; C. PNEUMONIAE- RESP PCR PANEL NOT DETECTED; CORONAVIRUS 229E-RESP PCR NOT DETECTED; CORONAVIRUS HKU1-RESP PCR NOT DETECTED; CORONAVIRUS NL63-RESP PCR NOT DETECTED; CORONAVIRUS OC43-RESP PCR NOT DETECTED; HUMAN METAPNEUMOVIRUS NOT DETECTED; INFLUENZA A- RESP PCR PANEL NOT DETECTED; INFLUENZA B - RESP PCR PANEL NOT DETECTED; M. PNEUMONIAE- RESP PCR PANEL NOT DETECTED; PARAINFLUENZA VIRUS 1 NOT DETECTED; PARAINFLUENZA VIRUS 2 NOT DETECTED; PARAINFLUENZA VIRUS 3 NOT DETECTED; PARAINFLUENZA VIRUS 4 NOT DETECTED; RHINOVIRUS/ENTEROVIRUS NOT DETECTED; RSV- RESP PCR PANEL NOT DETECTED; SARS-CoV-2 -RESP PCR PANEL NOT DETECTED
[2020-12-24] MEDS: CIPROFLOXACIN 400 MG/200 ML 400 MG/200 ML BAG IV SCH (19:04)
[2020-12-24] MEDS: HYDROmorphone 0.5 MG/0.5 ML SYRINGE IVP PRN ×2 (19:04→21:17)
[2020-12-24] MEDS: SODIUM CHLORIDE FLUSH 0.9% 10 ML SYRINGE IVP PRN (20:19)
[2020-12-24] MEDS: metroNIDAZOLE 500 MG/100 ML 500 MG/100 ML BAG IV SCH (20:32)
[2020-12-25] MEDS: HYDROmorphone 0.5 MG/0.5 ML SYRINGE IVP PRN ×5 (00:34→20:39)
[2020-12-25] MEDS: methocarbamoL 500 MG TABLET PO SCH ×5 (00:34→23:44)
[2020-12-25] MEDS: METOCLOPRAMIDE 10 MG/2 ML VIAL IVP SCH ×5 (00:35→23:45)
[2020-12-25] MEDS: SODIUM CHLORIDE FLUSH 0.9% 10 ML SYRINGE IVP SCH ×3 (00:35→17:06)
[2020-12-25] MEDS: D5NS W/20 MEQ KCL 1,000 ML IV SCH ×2 (03:31→11:15)
[2020-12-25] MEDS: SODIUM CHLORIDE FLUSH 0.9% 10 ML SYRINGE IVP PRN ×3 (03:33→21:19)
[2020-12-25] MEDS: metroNIDAZOLE 500 MG/100 ML 500 MG/100 ML BAG IV SCH ×3 (06:18→22:33)
[2020-12-25] MEDS: PANTOPRAZOLE 40 MG VIAL IVP SCH (06:19)
[2020-12-25 07:33] LABS: BASOPHILS % (AUTO) 0.3 %; EOSINOPHILS % (AUTO) 0.3 %; HCT - HEMATOCRIT 31.3 % (37.0-47.0); HGB - HEMOGLOBIN 10.1 g/dL (12.0-16.0); LYMPHOCYTES # (AUTO) 0.8 10^3/uL (1.5-3.5); LYMPHOCYTES % (AUTO) 10.1 %; MEAN CORPUSCULAR HEMOGLOBIN 33.9 pg (27.0-31.0); MEAN CORPUSCULAR HGB CONC 32.3 g/dL (32.0-36.0); MEAN PLATELET VOLUME 11.5 fL (7.9-10.8); MONOCYTES # (AUTO) 0.6 10^3/uL (0.0-1.0); MONOCYTES % (AUTO) 8.3 %; NEUTROPHILS # (AUTO) 6.2 10^3/uL (1.5-6.6); NEUTROPHILS % (AUTO) 80.5 %; PLT - PLATELET COUNT 139 10^3/uL (130-450); RED BLOOD COUNT 2.98 10^6/uL (4.20-5.40); RED CELL DISTRIBUTION WIDTH 18.1 % (12.0-15.0); WHITE BLOOD COUNT 7.7 x10^3/uL (4.8-10.8)
[2020-12-25 07:46] LABS: MAGNESIUM 1.6 mg/dL (1.7-2.8); PHOSPHORUS 2.4 mg/dL (2.5-4.6)
[2020-12-25] MEDS: CIPROFLOXACIN 400 MG/200 ML 400 MG/200 ML BAG IV SCH ×2 (08:46→20:41)
[2020-12-25] MEDS: ENOXAPARIN 40 MG/0.4 ML SYRINGE SUBQ SCH (08:46)
[2020-12-25] MEDS ORDERED: POTASSIUM CHLORIDE 20 MEQ/15 ML UDC PO SCH (16:00)
[2020-12-25] MEDS ORDERED: LEVOTHYROXINE 100 MCG VIAL IVP SCH (16:00)
[2020-12-25] MEDS: ACETAMINOPHEN 1,000 MG/100 ML 100 ML IV PRN (16:02)
[2020-12-25] MEDS: SODIUM CHLORIDE 0.9% 500 ML IV PRN (16:59)
[2020-12-25] MEDS: POTASSIUM CHLOR 10 MEQ/100 ML 10 MEQ/100 ML BAG IV SCH ×3 (17:02→19:53)
[2020-12-26] MEDS: D5NS W/20 MEQ KCL 1,000 ML IV SCH ×4 (00:07→20:48)
[2020-12-26] MEDS: SODIUM CHLORIDE FLUSH 0.9% 10 ML SYRINGE IVP SCH ×3 (00:10→17:56)
[2020-12-26] MEDS: ACETAMINOPHEN 1,000 MG/100 ML 100 ML IV PRN ×2 (00:10→14:41)
[2020-12-26 05:44] LABS: BASOPHILS % (AUTO) 0.1 %; EOSINOPHILS # (AUTO) 0.1 10^3/uL (0.0-0.7); EOSINOPHILS % (AUTO) 0.8 %; HCT - HEMATOCRIT 28.9 % (37.0-47.0); HGB - HEMOGLOBIN 9.3 g/dL (12.0-16.0); LYMPHOCYTES # (AUTO) 0.5 10^3/uL (1.5-3.5); LYMPHOCYTES % (AUTO) 7.2 %; MEAN CORPUSCULAR HEMOGLOBIN 34.1 pg (27.0-31.0); MEAN CORPUSCULAR HGB CONC 32.2 g/dL (32.0-36.0); MEAN CORPUSCULAR VOLUME 105.9 fL (81.0-99.0); MONOCYTES # (AUTO) 0.6 10^3/uL (0.0-1.0); MONOCYTES % (AUTO) 7.6 %; NEUTROPHILS # (AUTO) 6.3 10^3/uL (1.5-6.6); NEUTROPHILS % (AUTO) 83.4 %; PLT - PLATELET COUNT 111 10^3/uL (130-450); RED BLOOD COUNT 2.73 10^6/uL (4.20-5.40); WHITE BLOOD COUNT 7.5 x10^3/uL (4.8-10.8)
[2020-12-26] MEDS ORDERED: IOVERSOL 320 100 ML VIAL IVP ONE ×2 (06:00→12:05)
[2020-12-26 06:01] LABS: MAGNESIUM 1.5 mg/dL (1.7-2.8); PHOSPHORUS 1.9 mg/dL (2.5-4.6)
[2020-12-26] MEDS ORDERED: IOPAMIDOL-300 50 ML VIAL ONE ×2 (06:02→09:34)
[2020-12-26] MEDS: METOCLOPRAMIDE 10 MG/2 ML VIAL IVP SCH ×3 (06:20→19:11)
[2020-12-26] MEDS: methocarbamoL 500 MG TABLET PO SCH ×3 (06:32→19:11)
[2020-12-26] MEDS: LEVOTHYROXINE 75 MCG TABLET PO SCH (06:32)
[2020-12-26] MEDS: PANTOPRAZOLE 40 MG VIAL IVP SCH (06:36)
[2020-12-26] MEDS: SODIUM CHLORIDE FLUSH 0.9% 10 ML SYRINGE IVP PRN ×3 (06:36→19:12)
[2020-12-26] MEDS: metroNIDAZOLE 500 MG/100 ML 500 MG/100 ML BAG IV SCH ×3 (06:40→21:57)
[2020-12-26] MEDS ORDERED: CALCIUM CARBONATE CHEW 500 MG TABLET PO SCH (09:00)
[2020-12-26] MEDS ORDERED: FUROSEMIDE 40 MG TABLET PO SCH (09:00)
[2020-12-26] MEDS: LOSARTAN 50 MG TABLET PO SCH (10:33)
[2020-12-26] MEDS: ENOXAPARIN 40 MG/0.4 ML SYRINGE SUBQ SCH (10:33)
[2020-12-26] MEDS: MULTIVITAMIN TABLET PO SCH (10:34)
[2020-12-26] MEDS: METOPROLOL SUCCINATE 50 MG TABLET PO SCH (10:34)
[2020-12-26] MEDS: CIPROFLOXACIN 400 MG/200 ML 400 MG/200 ML BAG IV SCH ×2 (10:48→20:48)
[2020-12-26] MEDS: HYDROmorphone 0.5 MG/0.5 ML SYRINGE IVP PRN (10:55)
[2020-12-26] MEDS ORDERED: WITCH HAZEL/GLYCERIN 1 PAD TOP PRN (11:59)
--- NOTE | 2020-12-26 12:02 | CT Report ---
PROCEDURE: Abdomen/Pelvis W INDICATIONS: evaluate for perforation/abscess CONTRAST: IV CONTRAST: Optiray 320 ml: 100 PO CONTRAST: Isovue 300 ml50 TECHNIQUE: After the administration of oral and intravenous contrast, 5 mm thick sections acquired from the diap hragms to the symphysis. 5 mm thick coronal and sagittal reformats were acquired. For radiation dos e reduction, the following was used: automated exposure control, adjustment of mA and/or kV accordin g to patient size. COMPARISON: None. FINDINGS: Image quality: Excellent. ABDOMEN: Lung bases: Interval development of a minimal right pleural effusion and patchy right basilar atelect asis. Heart size is normal. Solid organs: Liver and spleen are normal in size and enhancement. Probably benign small low-density liver lesions. Gallbladder is again noted to be distended without wall thickening. Biliary system is non dilated. Pancreas enhances normally. No adrenal nodules. Kidneys demonstrate normal size an d enhancement, without hydronephrosis. 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 Peritoneum and bowel: Interval progression of wall thickening of the cecum, which is now relatively i mpressive. This also involves the terminal ileum. An early deep pelvic abscess is developing, with ea rly wall enhancement. It is adjacent to the cecum. It is somewhat hourglass-shaped, measuring 8.3 x 2 .6 cm on image 68/3. Interval placement of a rectal tube. Mildly diffusely dilated small bowel loops are consistent with probable ileus pattern. Nodes and vessels: No retroperitoneal or mesenteric adenopathy by size criteria. Aorta and inferior vena cava are normal in size. Miscellaneous: No ventral hernias. PELVIS: Genitourinary: Bladder wall thickness is normal. Miscellaneous: No inguinal hernias or adenopathy. Uterus appears to be surgically absent. Bones: No suspicious bony lesions. No vertebral body compression fractures. IMPRESSION: 1. Findings most likely represent ruptured appendicitis with resultant significant thickening of the cecum and terminal ileum and development of a deep pelvic abscess. 2. Probable ileus pattern. 3. Rectal tube in place. 4. 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 5. Development of a minimal right pleural effusion and patchy right basilar atelectasis. Reviewed by: Fili Plascencia MD on 12/26/2020 11:01 AM ELANA Approved by: Fili Plascencia MD on 12/26/2020 11:01 AM ELANA Station ID: [id number]
[2020-12-26] MEDS ORDERED: IOPAMIDOL-300 50 ML VIAL PO ONE (12:06)
--- NOTE | 2020-12-26 14:27 | PROVIDER PROGRESS NOTE ---
Progress Note Subjective 85-year-old female status post colonoscopy/endoscopies presenting with severe abdominal pain. Hospital day #3 with no significant improvement. Status post CT scan which showed the followin. Findings most likely represent ruptured appendicitis with resultant significant thickening of the cecum and terminal ileum development of a deep pelvic abscess. 2. Probable ileus pattern noted 3. 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 Development of a minimal right pleural effusion and patchy right basilar atelectasis She is status post below. Multiple polypectomies/interventions as well as thermal ablation for angiodysplasia as well. CT scan as follows On admission: Impression: 1. Suggestion of mild diffuse colonic wall thickening which raised may progress represent low-grade infectious or inflammatory colitis. Sigmoid diverticulosis without evidence of acute diverticulitis. 2. Appendix is not definitively identified. Early appendicitis cannot be excluded. No abscess collection. Small amount of free fluid in lower abdomen and pelvis. No gross free air. 3. Distal gastric wall thickening particularly involving the pylorus and gastric antrum. Possible proximal duodenal wall thickening. Finding may represent gastritis and duodenitis. 4. Hypodensities noted in right and left hepatic lobes as described above which may represent hepatic cysts. Emergency room called primary endoscopist after speaking with surgery and they requested admission for observation. Endoscopy report with the following impressions: 1. Status post cold snare polypectomy transverse colon 3mm removed 2. Noted diverticulosis within sigmoid colon without diverticulitis 3. Nonbleeding internal hemorrhoid 4. Angiodysplastic lesions - 7 total; treated ARGON beam coagulation (Cecum, Appendiceal Orificie) Objective General Appearance: positive: No acute distress Eyes Bilateral: positive: Normal inspection ENT: positive: ENT inspection nml Neck: positive: Nml inspection Respiratory: positive: Chest non-tender, No respiratory distress, Breath sounds nml. negative: Wheezes, Rales, Rhonchi Cardiovascular: positive: Regular rate & rhythm Abdomen: Positive diffuse tenderness to palpation, positive distention, right lower quadrant rebound and guarding Extremities: positive: Non-tender, Full ROM, Nml appearance Neurologic/Psychiatric: positive: Oriented x3, CN's nml (2-12) Impression/Plan 85-year-old female with iatrogenic perforation from recent colonoscopy likely at site of cecum secondary to argon beam ablation. Patient is status post appendectomy remotely thus this is likely a consequence of the patient's intervention at the level of the cecum and appendiceal orifice. Discussed at length and given the significant interval increase in pelvic fluid and abscess formation by imaging patient is a candidate for diagnostic laparoscopy partial cecectomy possible segmental colectomy, possible stoma, pos sible open intervention amongst other indicated procedures. (1) GI - IVF, bowel rest. GI ppx. [Anticipate ileus]. Opiate sparring analgesia. (2) SURGERY - diagnostic laparoscopy, possible open, possible cecectomy, possible ileocecectomy/anastomosis, possible stoma, other indicated procedures. Abdominal washout, wide local drainage. (3) Renal/Lytes - continue IVF. Renal indices within normal limits. (4) Respiratory - O2 as necessary. Continue IS. (5) Heme - Will continue with DVT ppx. H/H stable. (6) Cardiovascular - HD acceptable. (7) Neuro - Opiate sparring analgesia. Antispasmodics with Robaxin. [Toradol]. Neuropathic agents. (8) Immune/Infectious Disease - continue IV antibiotics scheduled. We will send intraoperative culture.
[2020-12-26] MEDS ORDERED: POTASSIUM CHLORIDE 20 MEQ/15 ML UDC PO SCH (15:00)
[2020-12-26] MEDS: SODIUM CHLORIDE 0.9% 500 ML IV PRN ×2 (15:37→18:54)
--- NOTE | 2020-12-26 15:39 | PHARMACY PROGRESS NOTE ---
- Best Possible Medication History Admit Date and Time: 12/25/20 1537 Processed by: Pharmacy Medication History completed: Yes Patient Interview: Completed Secondary Source(s): Written medication list, Physician records, Pharmacy records, Insurance records As the person ultimately responsible for medication therapy, providers are able to order a medication from an existing home medication list in [facility] via the "Reconcile Routine" prior to Confirmation of that medication by application support technician. Such practice is discouraged except when the physician, in their clinical judgment, deems that a medical need exists for a medication without regard to previous use.
[2020-12-26] MEDS ORDERED: fentaNYL 100 MCG/2 ML VIAL ONE ×2 (15:40→17:35)
[2020-12-26] MEDS ORDERED: KETOROLAC 30 MG/ML VIAL ONE (15:40)
[2020-12-26] MEDS ORDERED: LIDOCAINE-MPF 2% 5 ML VIAL ONE (15:40)
[2020-12-26] MEDS ORDERED: ROCURONIUM 50 MG/5 ML VIAL ONE (15:40)
[2020-12-26] MEDS ORDERED: SUCCINYLCHOLINE 200 MG/10 ML VIAL ONE (15:40)
[2020-12-26] MEDS ORDERED: DEXAMETHASONE 4 MG/ML VIAL ONE (15:40)
[2020-12-26] MEDS ORDERED: PROPOFOL 200 MG/20 ML VIAL IVP ONE (15:40)
[2020-12-26] MEDS ORDERED: ONDANSETRON 4 MG/2 ML VIAL ONE (15:40)
--- NOTE | 2020-12-26 15:48 | ANESTHESIA ---
Pre-Anesthesia VS, & Labs - Diagnosis Possible bowel obstruction - Procedure Diagnostic laparoscopy Vital Signs: Temp Pulse Resp BP Pulse Ox 36.4 C L 74 16 134/74 H 99 12/26/20 14:13 12/26/20 14:13 12/26/20 14:13 12/26/20 14:13 12/26/20 14:13 Height: 5 ft 3 in Weight (kg): 63.503 kg Body Mass Index: 24.7 BMI Classification: Healthy weight - NPO >8 hours - Is Patient ?: No - Lab Results Current Lab Results: Laboratory Tests 12/26/20 05:18: Phosphorus 1.9 L, Magnesium 1.5 L 12/26/20 05:18: WBC 7.5, RBC 2.73 L, Hgb 9.3 L, Hct 28.9 L, MCV 105.9 H, MCH 34.1 H, MCHC 32.2, RDW 18.0 H, Plt Count 111 L, MPV 11.0 H, Neut # (Auto) 6.3, Lymph # (Auto) 0.5 L, [place] # (Auto) 0.6, Eos # (Auto) 0.1, Baso # (Auto) 0.0, Absolute Nucleated RBC 0.00, Nucleated RBC % 0.0 12/25/20 06:47: Phosphorus 2.4 L, Magnesium 1.6 L 12/25/20 06:47: WBC 7.7, RBC 2.98 L, Hgb 10.1 L, Hct 31.3 L, MCV 105.0 H, MCH 33.9 H, MCHC 32.3, RDW 18.1 H, Plt Count 139, MPV 11.5 H, Neut # (Auto) 6.2, Lymph # (Auto) 0.8 L, [place] # (Auto) 0.6, Eos # (Auto) 0.0, Baso # (Auto) 0.0, Absolute Nucleated RBC 0.00, Nucleated RBC % 0.0 12/24/20 14:24: Sodium 139, Potassium 3.2 L, Chloride 104, Carbon Dioxide 21, Anion Gap 14.0 H, BUN 22 H, Creatinine 1.0, Estimated GFR (MDRD) 53 L, Glucose 125 H, Calcium 9.8, Total Bilirubin 1.0, AST 26, ALT 20, Alkaline Phosphatase 8 5, Total Protein 7.0, Albumin 4.2, Globulin 2.8, Albumin/Globulin Ratio 1.5, Lipase 19 L 12/24/20 14:24: WBC 5.7, RBC 3.65 L, Hgb 12.4, Hct 38.0, MCV 104.1 H, MCH 34.0 H , MCHC 32.6, RDW 17.4 H, Plt Count 157, MPV 10.6, Neut # (Auto) 4.7, Lymph # (Auto) 0.5 L, [place] # (Auto) 0.3, Eos # (Auto) 0.2, Baso # (Auto) 0.0, Absolute Nucleated RBC 0.00, Nucleated RBC % 0.0 Lab results reviewed: Yes Fish Bones: 12/26/20 05:18 12/24/20 14:24 Home Medications and Allergies Home Medications: Ambulatory Orders Levothyroxine Sodium [Synthroid] 75 mcg PO QDAC 12/25/20 Ascorbic Acid Chew [Vitamin C] 500 mg PO DAILY 12/26/20 Bacillus Coagulans [Digestive Advantage Kid Probio] 1 tab PO DAILY 12/26/20 Cholecalciferol [Vitamin D3] 75 mcg PO DAILY 12/26/20 Fexofenadine [Kelsea] 120 mg PO DAILY PRN 12/26/20 Psyllium Husk/Aspartame [Daily Fiber Packet] 1 packet PO DAILY 12/26/20 Active Medications Calcium Carbonate/Glycine (Calcium Carbonate Chew 500 Mg Tablet) 1,000 mg PO DAILY [facility] Last Admin: 12/26/20 10:33 Dose: 1,000 mg Documented by: Enoxaparin Sodium (Enoxaparin 40 Mg/0.4 Ml Syringe) 40 mg SUBQ DAILY [facility] Last Admin: 12/26/20 10:33 Dose: 40 mg Documented by: Furosemide (Furosemide 40 Mg Tablet) 40 mg PO DAILY [facility] Last Admin: 12/26/20 10:33 Dose: 40 mg Documented by: Hydromorphone HCl (Hydromorphone 0.5 Mg/0.5 Ml Syringe) 0.5 mg IVP Q2H PRN PRN Reason: Pain 8 to 10 Last Admin: 12/26/20 10:55 Dose: 0.5 mg Documented by: Potassium Chloride/Dextrose/Sod Cl (D5ns W/20 Meq Kcl) 1,000 mls @ 125 mls/hr IV .Q8H [facility] Last Admin: 12/26/20 15:23 Dose: Not Given Documented by: Acetaminophen (Ofirmev) 100 mls @ 400 mls/hr IV Q6HR PRN PRN Reason: PAIN Last Infusion: 12/26/20 15:00 Dose: Infused Documented by: Ciprofloxacin (Cipro 400 Mg/200 Ml) 400 mg in 200 mls @ 200 mls/hr IV BID [facility] Last Infusion: 12/26/20 12:26 Dose: Infused Documented by: Metronidazole (Flagyl 500 Mg/100 Ml) 500 mg in 100 mls @ 100 mls/hr IV TID [facility] Last Admin: 12/26/20 15:08 Dose: 100 mls/hr Documented by: Sodium Chloride (Normal Saline 0.9%) 500 mls @ 20 mls/hr IV Q24H PRN PRN Reason: TKO RATE Last Admin: 12/26/20 15:37 Dose: 100 mls/hr Documented by: Potassium Chloride (Potassium Chloride) 10 meq in 100 mls @ 100 mls/hr IV Q1H [facility] Stop: 12/26/20 17:59 Levothyroxine Sodium (Levothyroxine 75 Mcg Tablet) 75 mcg PO QDAC [facility] Last Admin: 12/26/20 06:32 Dose: 75 mcg Documented by: Losartan Potassium (Losartan 50 Mg Tablet) 50 mg PO DAILY [facility] Last Admin: 12/26/20 10:33 Dose: 50 mg Documented by: Methocarbamol (Methocarbamol 500 Mg Tablet) 500 mg PO Q6HR [facility] Last Admin: 12/26/20 12:09 Dose: 500 mg Documented by: Metoclopramide HCl (Metoclopramide 10 Mg/2 Ml Vial) 5 mg IVP Q6HR [facility] Last Admin: 12/26/20 12:10 Dose: 5 mg Documented by: Metoprolol Succinate (Metoprolol Succinate 50 Mg Tablet) 50 mg PO DAILY [facility] Last Admin: 12/26/20 10:34 Dose: 50 mg Documented by: Multivitamins (Multivitamin Tablet) 1 tab PO DAILY [facility] Last Admin: 12/26/20 10:34 Dose: 1 tab Documented by: Ondansetron HCl (Ondansetron 4 Mg/2 Ml Vial) 4 mg IVP Q6HR PRN PRN Reason: Nausea / Vomiting Pantoprazole Sodium (Pantoprazole 40 Mg Vial) 40 mg IVP QDAC [facility] Last Admin: 12/26/20 06:36 Dose: 40 mg Documented by: Potassium Chloride (Potassium Chloride 20 Meq/15 Ml Udc) 20 meq PO ONCE [facility] Stop: 12/26/20 19:00 Last Admin: 12/26/20 15:38 Dose: Not Given Documented by: Sodium Chloride (Sodium Chloride Flush 0.9% 10 Ml Syringe) 10 ml IVP 0100,0900,1700 [facility] Last Admin: 12/26/20 10:47 Dose: 10 ml Documented by: Sodium Chloride (Sodium Chloride Flush 0.9% 10 Ml Syringe) 10 ml IVP PRN PRN PRN Reason: NEEDED PER PROVIDER ORDERS Last Admin: 12/26/20 06:42 Dose: 10 ml Documented by: Witch Roxann/Glycerin (Witch Roxann/Glycerin 1 Pad) 1 pad TOP PRN PRN PRN Reason: ITCHING Calcium Carbonate [Calcium] 1,200 mg PO DAILY 01/11/15 Metoprolol Succinate [Toprol Xl] 50 mg PO DAILY 01/11/15 Multivitamin [Multivitamins] 1 each PO DAILY 01/11/15 Omeprazole [PriLOSEC] 20 mg PO DAILY 01/11/15 Tolterodine Tartrate [Detrol LA] 2 mg PO DAILY 01/11/15 Allopurinol [Zyloprim] 300 mg PO DAILY 08/05/20 Furosemide [Lasix] 40 mg PO DAILY 08/05/20 Potassium Chloride 10 meq PO DAILY 08/05/20 Valsartan [Diovan] 160 mg PO DAILY 08/05/20 Levothyroxine Sodium [Synthroid] 75 mcg PO QDAC 12/25/20 Ascorbic Acid Chew [Vitamin C] 500 mg PO DAILY 12/26/20 Bacillus Coagulans [Digestive Advantage Kid Probio] 1 tab PO DAILY 12/26/20 Cholecalciferol [Vitamin D3] 75 mcg PO DAILY 12/26/20 Fexofenadine [Kelsea] 120 mg PO DAILY PRN 12/26/20 Psyllium Husk/Aspartame [Daily Fiber Packet] 1 packet PO DAILY 12/26/20 Allergies/Adverse Reactions: Allergies Allergy/AdvReac Type Severity Reaction Status Date / Time meperidine HCl * Allergy Intermediate Hives Verified 12/24/20 13:56 [From Demerol] Iodine and Iodide Containing Allergy Mild Rash Verified 12/24/20 13:56 Produc Anes History & Medical History - Anesthetic History Anesthesia Complications: reports: No previous complications Family history of Anesthesia Complications: Denies Family history of Malignant Hyperthermia: Denies - Medical History Cardiovascular: reports: Hypertension Pulmonary: reports: None Gastrointestinal: reports: GERD Urinary: reports: None Musculoskeletal: reports: Osteoarthritis, Gout Endocrine/Autoimmune: reports: HyPOthyroidism Skin: reports: Rosacea Smoking Status: Never smoker - Surgical History General: reports: 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 Eyes Ears Nose Throat (EENT): reports: Cataracts Urologic: reports: Bladder surgery Gynecologic: reports: Hysterectomy Results - Echo Results Echo Results: Report reviewed (EF 60-65%, no major valvular problems) Exam General: Alert, Oriented x3, Cooperative, No acute distress Dental: WNL Mouth Openin Fingerbreadth Neck Mobility: Normal Mallampati classification: II Respiratory: Lungs clear, Normal breath sounds, No respiratory distress, No accessory muscle use Cardiovascular: Regular rate, Normal S1, Normal S2, No murmurs Plan Anesthesia Type: General, Transverse Abdominis Plane (TAP) Block Regional Block: Per Surgeon's request for Post Op pain control Consent for Procedure(s) Verified and Reviewed: Yes Code Status: Attempt Resuscitation ASA classification: 2-Mild systemic disease Is this case an emergency?: No
[2020-12-26] MEDS ORDERED: BUPIVACAINE 0.5% PF 30 ML VIAL ONE (15:58)
--- NOTE | 2020-12-26 16:23 | XRAY Report ---
PROCEDURE: Chest 1 View X-Ray INDICATIONS: PRE OP TECHNIQUE: One view of the chest was acquired. COMPARISON: None FINDINGS: Surgical changes and devices: None. Lungs and pleura: No pleural effusions or pneumothorax. Mild patchy right basilar opacity is present . Mediastinum: Mediastinal contours appear normal. Heart size is normal. Bones and chest wall: No suspicious bony lesions. Overlying soft tissues appear unremarkable. IMPRESSION: Mild right basilar atelectasis versus pneumonia. Reviewed by: Odilia Zambrano MD on 12/26/2020 4:21 PM PDT Approved by: Odilia Zambrano MD on 12/26/2020 4:21 PM PDT Station ID: [id number]
[2020-12-26] MEDS ORDERED: BUPIVACAINE 0.5% PF 30 ML VIAL INFIL ONE ×2 (16:41)
[2020-12-26] MEDS ORDERED: KETAMINE 500 MG/10 ML VIAL ONE (17:04)
[2020-12-26] MEDS ORDERED: SUGAMMADEX 200 MG/2 ML VIAL IVP ONE (17:35)
[2020-12-26] MEDS ORDERED: FEXOFENADINE 60 MG TABLET PO PRN (17:54)
[2020-12-26] MEDS ORDERED: LACTATED RINGERS 700 ML IV ONE (17:56)
[2020-12-26] MEDS ORDERED: polyethylene glycoL 3350 17 GM PACKET PO PRN (17:57)
[2020-12-26] MEDS ORDERED: LACTATED RINGERS 1,000 ML IV SCH (18:00)
--- NOTE | 2020-12-26 18:11 | OPERATIVE REPORT ---
Operative Report - General Admit Date: 12/25/20 Procedure Date: 12/26/20 Planned Procedure: 1. Diagnostic laparoscopy 2. Laparoscopic abdominal washout 3. Laparoscopic assisted abscess drainage 4. Laparoscopic segmental colectomy 5. Possible stoma, possible resection with anastomosis 6. Possible open intervention 7. Drain placement Pre-Op Diagnosis: Iatrogenic perforation, pelvic abscess, peritonitis, free abdominal fluid Procedure Performed: 1. Diagnostic laparoscopy 2. Laparoscopic abdominal washout 3. Laparoscopic assisted abscess drainage 4. Laparoscopic segmental colectomy 5. Laparoscopic drain placement 6. Saline immersion and insufflation test, pancolonic 7. Umbilical hernia repair 8. Tap block per anesthesia Post Op Diagnosis: Same; pelvic abscess drained; no leak on saline immersion with insufflation - Procedure Note Primary Surgeon: Pato Secondary Surgeon: Caryl Anesthesia Provider: James Anesthesia Technique: General ET tube, Local, Regional block Pathology: 1. Fluid for culture 2. Tissue for culture 3. Cecum with appendiceal orifice Estimated Blood Loss (mL): 20 Drain/Tube Type: Filippo drain Indications: 1. Recent colonoscopy with presumptive iatrogenic perforation secondary to argon beam ablation within the cecum 2. Worsening pelvic fluid with abscess on interval CAT scan with associated peritonitis 3. Ileus with worsening abdominal distention and discomfort Findings: 1. Large pelvic abscess involving the cecum terminal ileum, the rectosigmoid and upper rectum, gynecologic structures, and bladder with extensive fibrinous exudate aspirated, washed out and debrided and widely drained 2. Extensive cecitis resected to comparably normal tissue without involvement o f the ileocecal valve specimen evaluated on back table noted for appendiceal orifice 3. Umbilical hernia performed for primary open repair at the conclusion of this case 4. No bubbles appreciated on saline immersion and pancolonic insufflation with CO2 Complications: None - Other Other Information/Narrative: See pending report.
--- NOTE | 2020-12-26 18:22 | ANESTHESIA POST OP EVALUATION ---
Anesthesia Post Eval - Post Anesthesia Eval Vitals: Last Vital Signs Temp 36.6 C 12/26/20 18:20 Pulse 78 12/26/20 18:20 Resp 15 12/26/20 18:20 BP 131/68 H 12/26/20 18:20 Pulse Ox 97 12/26/20 18:20 CV Function Including HR & BP: positive: Stable Pain Control: positive: Satisfactory Nausea & Vomiting: positive: Negative Mental Status: positive: Baseline Respiratory Status: Airway Patent Hydration Status: Satisfactory Anesthesia Complications: positive: None
[2020-12-26] MEDS ORDERED: LORATADINE 10 MG TABLET PO PRN (18:26)
[2020-12-26 18:42] LABS: MAGNESIUM 1.3 mg/dL (1.7-2.8); PHOSPHORUS 2.8 mg/dL (2.5-4.6)
[2020-12-26] MEDS: POTASSIUM CHLOR 10 MEQ/100 ML 10 MEQ/100 ML BAG IV SCH ×3 (18:54→21:56)
[2020-12-26] MEDS: polyethylene glycoL 3350 17 GM PACKET PO SCH (20:37)
[2020-12-26] MEDS: DOCUSATE SODIUM 100 MG CAPSULE PO SCH (20:37)
[2020-12-26] MEDS: INSULIN ASPART 300 UNIT/3 ML PEN SUBQ SCH (21:07)
[2020-12-27] MEDS: METOCLOPRAMIDE 10 MG/2 ML VIAL IVP SCH ×5 (00:37→23:58)
[2020-12-27] MEDS: methocarbamoL 500 MG TABLET PO SCH ×5 (00:37→23:58)
[2020-12-27] MEDS: SODIUM CHLORIDE FLUSH 0.9% 10 ML SYRINGE IVP SCH ×4 (00:40→23:58)
[2020-12-27] MEDS: D5NS W/20 MEQ KCL 1,000 ML IV SCH ×3 (04:16→20:33)
[2020-12-27] MEDS: ACETAMINOPHEN 1,000 MG/100 ML 100 ML IV PRN ×3 (04:38→20:36)
[2020-12-27 04:53] LABS: HCT - HEMATOCRIT 30.5 % (37.0-47.0); HGB - HEMOGLOBIN 9.9 g/dL (12.0-16.0); LYMPHOCYTES # (AUTO) 0.5 10^3/uL (1.5-3.5); LYMPHOCYTES % (AUTO) 7.1 %; MEAN CORPUSCULAR HEMOGLOBIN 34.3 pg (27.0-31.0); MEAN CORPUSCULAR HGB CONC 32.5 g/dL (32.0-36.0); MEAN CORPUSCULAR VOLUME 105.5 fL (81.0-99.0); MEAN PLATELET VOLUME 11.4 fL (7.9-10.8); MONOCYTES # (AUTO) 0.3 10^3/uL (0.0-1.0); MONOCYTES % (AUTO) 4.7 %; NEUTROPHILS # (AUTO) 5.8 10^3/uL (1.5-6.6); NEUTROPHILS % (AUTO) 87.1 %; PLT - PLATELET COUNT 130 10^3/uL (130-450); RED BLOOD COUNT 2.89 10^6/uL (4.20-5.40); RED CELL DISTRIBUTION WIDTH 17.2 % (12.0-15.0); WHITE BLOOD COUNT 6.6 x10^3/uL (4.8-10.8)
[2020-12-27 05:00] LABS: ALBUMIN 2.8 g/dL (3.2-5.5); ALBUMIN/GLOBULIN RATIO 1.1 (1.0-2.2); BILIRUBIN,TOTAL 0.8 mg/dL (0.2-1.0); CREATININE 0.9 mg/dL (0.4-1.0); MAGNESIUM 1.3 mg/dL (1.7-2.8); PHOSPHORUS 2.4 mg/dL (2.5-4.6); POTASSIUM 4.4 mmol/L (3.5-5.0); TOTAL PROTEIN 5.4 g/dL (6.7-8.2)
[2020-12-27] MEDS: metroNIDAZOLE 500 MG/100 ML 500 MG/100 ML BAG IV SCH ×3 (05:39→22:10)
[2020-12-27] MEDS: LEVOTHYROXINE 75 MCG TABLET PO SCH (05:50)
[2020-12-27] MEDS: PANTOPRAZOLE 40 MG VIAL IVP SCH (05:50)
[2020-12-27] MEDS: SODIUM CHLORIDE FLUSH 0.9% 10 ML SYRINGE IVP PRN ×3 (05:51→17:53)
[2020-12-27] MEDS: INSULIN ASPART 300 UNIT/3 ML PEN SUBQ SCH ×4 (08:15→22:09)
[2020-12-27] MEDS: SACCHAROMYCES BOULARDII 250 MG CAPSULE PO SCH ×2 (08:15→16:57)
[2020-12-27] MEDS ORDERED: ALLOPURINOL 300 MG PO SCH (09:00)
[2020-12-27] MEDS ORDERED: BACILLUS COAGULANS PO SCH (09:00)
[2020-12-27] MEDS: polyethylene glycoL 3350 17 GM PACKET PO SCH ×2 (09:01→20:39)
[2020-12-27] MEDS: CHOLECALCIFEROL 25 MCG TABLET PO SCH (09:01)
[2020-12-27] MEDS: allopurinoL 100 MG TABLET PO SCH (09:02)
[2020-12-27] MEDS: MULTIVITAMIN TABLET PO SCH (09:03)
[2020-12-27] MEDS: ASCORBIC ACID CHEW 500 MG TABLET PO SCH (09:03)
[2020-12-27] MEDS: ENOXAPARIN 40 MG/0.4 ML SYRINGE SUBQ SCH (09:04)
[2020-12-27] MEDS: METOPROLOL SUCCINATE 50 MG TABLET PO SCH (09:04)
[2020-12-27] MEDS: LOSARTAN 50 MG TABLET PO SCH (09:04)
[2020-12-27] MEDS: DOCUSATE SODIUM 100 MG CAPSULE PO SCH ×2 (09:05→20:39)
[2020-12-27] MEDS: CIPROFLOXACIN 400 MG/200 ML 400 MG/200 ML BAG IV SCH ×2 (09:59→20:41)
[2020-12-27] MEDS ORDERED: MAGNESIUM SULFATE 2 GRAM 2 GM/50 ML BAG IV ONE (14:22)
[2020-12-27] MEDS ORDERED: SODIUM PHOSPHATE 20 MMOL in SODIUM CHLORIDE 0.9% 250 ML IV ONE (14:23)
[2020-12-27] MEDS: HYDROmorphone 0.5 MG/0.5 ML SYRINGE IVP PRN (15:45)
[2020-12-28] MEDS: SODIUM CHLORIDE FLUSH 0.9% 10 ML SYRINGE IVP PRN ×6 (00:04→23:21)
[2020-12-28] MEDS: polyethylene glycoL 3350 17 GM PACKET PO SCH ×2 (01:40→22:06)
[2020-12-28 05:05] LABS: BASOPHILS % (AUTO) 0.4 %; EOSINOPHILS # (AUTO) 0.2 10^3/uL (0.0-0.7); EOSINOPHILS % (AUTO) 2.3 %; HCT - HEMATOCRIT 34.6 % (37.0-47.0); LYMPHOCYTES # (AUTO) 0.7 10^3/uL (1.5-3.5); LYMPHOCYTES % (AUTO) 10.3 %; MEAN CORPUSCULAR HEMOGLOBIN 33.6 pg (27.0-31.0); MEAN CORPUSCULAR HGB CONC 31.8 g/dL (32.0-36.0); MEAN CORPUSCULAR VOLUME 105.8 fL (81.0-99.0); MONOCYTES # (AUTO) 0.7 10^3/uL (0.0-1.0); MONOCYTES % (AUTO) 10.2 %; NEUTROPHILS # (AUTO) 5.4 10^3/uL (1.5-6.6); NEUTROPHILS % (AUTO) 76.4 %; PLT - PLATELET COUNT 165 10^3/uL (130-450); RED BLOOD COUNT 3.27 10^6/uL (4.20-5.40); RED CELL DISTRIBUTION WIDTH 17.6 % (12.0-15.0); WHITE BLOOD COUNT 7.1 x10^3/uL (4.8-10.8)
[2020-12-28 05:21] LABS: ALBUMIN 2.8 g/dL (3.2-5.5); ALBUMIN/GLOBULIN RATIO 1.1 (1.0-2.2); BILIRUBIN,TOTAL 0.4 mg/dL (0.2-1.0); CALCIUM 8.1 mg/dL (8.5-10.3); CREATININE 0.9 mg/dL (0.4-1.0); MAGNESIUM 1.8 mg/dL (1.7-2.8); PHOSPHORUS 2.2 mg/dL (2.5-4.6); POTASSIUM 3.6 mmol/L (3.5-5.0); TOTAL PROTEIN 5.3 g/dL (6.7-8.2)
[2020-12-28] MEDS: metroNIDAZOLE 500 MG/100 ML 500 MG/100 ML BAG IV SCH ×3 (06:09→22:18)
[2020-12-28] MEDS: PANTOPRAZOLE 40 MG TABLET PO SCH (06:10)
[2020-12-28] MEDS: LEVOTHYROXINE 75 MCG TABLET PO SCH (06:10)
[2020-12-28] MEDS: D5NS W/20 MEQ KCL 1,000 ML IV SCH ×2 (06:10→22:05)
[2020-12-28] MEDS: METOCLOPRAMIDE 10 MG/2 ML VIAL IVP SCH ×4 (06:10→23:43)
[2020-12-28] MEDS: methocarbamoL 500 MG TABLET PO SCH ×4 (06:10→23:43)
[2020-12-28] MEDS: SACCHAROMYCES BOULARDII 250 MG CAPSULE PO SCH ×2 (08:00→17:05)
[2020-12-28] MEDS: INSULIN ASPART 300 UNIT/3 ML PEN SUBQ SCH ×4 (08:02→22:05)
[2020-12-28] MEDS: MULTIVITAMIN TABLET PO SCH (08:48)
[2020-12-28] MEDS: LOSARTAN 50 MG TABLET PO SCH (08:48)
[2020-12-28] MEDS: ENOXAPARIN 40 MG/0.4 ML SYRINGE SUBQ SCH (08:49)
[2020-12-28] MEDS: allopurinoL 100 MG TABLET PO SCH (08:49)
[2020-12-28] MEDS: ASCORBIC ACID CHEW 500 MG TABLET PO SCH (08:49)
[2020-12-28] MEDS: CHOLECALCIFEROL 25 MCG TABLET PO SCH (08:49)
[2020-12-28] MEDS: METOPROLOL SUCCINATE 50 MG TABLET PO SCH (08:51)
[2020-12-28] MEDS: DOCUSATE SODIUM 100 MG CAPSULE PO SCH ×2 (08:57→22:05)
[2020-12-28] MEDS: CIPROFLOXACIN 400 MG/200 ML 400 MG/200 ML BAG IV SCH ×2 (08:57→21:00)
[2020-12-28] MEDS: SODIUM CHLORIDE FLUSH 0.9% 10 ML SYRINGE IVP SCH ×3 (09:01→23:43)
[2020-12-28] MEDS: TOLTERODINE LA 2 MG CAPSULE PO SCH (09:09)
[2020-12-28] MEDS: HYDROmorphone 0.5 MG/0.5 ML SYRINGE IVP PRN ×2 (09:10→21:30)
[2020-12-28] MEDS ORDERED: ZINC OXIDE 20% OINT 30 GM TUBE TOP PRN (15:06)
[2020-12-28] MEDS ORDERED: POTASSIUM PHOSPHATE 21 MMOL in SODIUM CHLORIDE 0.9% 250 ML IV ONE (15:43)
[2020-12-28] MEDS ORDERED: MAGNESIUM SULFATE 2 GRAM 2 GM/50 ML BAG IV ONE (15:43)
[2020-12-28] MEDS ORDERED: FUROSEMIDE 40 MG/4 ML VIAL IVP ONE (16:00)
[2020-12-29 04:58] LABS: BASOPHILS % (AUTO) 0.5 %; EOSINOPHILS # (AUTO) 0.2 10^3/uL (0.0-0.7); EOSINOPHILS % (AUTO) 3.3 %; HCT - HEMATOCRIT 33.6 % (37.0-47.0); HGB - HEMOGLOBIN 10.8 g/dL (12.0-16.0); LYMPHOCYTES # (AUTO) 1.1 10^3/uL (1.5-3.5); LYMPHOCYTES % (AUTO) 19.3 %; MEAN CORPUSCULAR HEMOGLOBIN 33.4 pg (27.0-31.0); MEAN CORPUSCULAR HGB CONC 32.1 g/dL (32.0-36.0); MEAN PLATELET VOLUME 10.6 fL (7.9-10.8); MONOCYTES # (AUTO) 0.8 10^3/uL (0.0-1.0); MONOCYTES % (AUTO) 14.4 %; NEUTROPHILS # (AUTO) 3.5 10^3/uL (1.5-6.6); NEUTROPHILS % (AUTO) 61.6 %; PLT - PLATELET COUNT 188 10^3/uL (130-450); RED BLOOD COUNT 3.23 10^6/uL (4.20-5.40); RED CELL DISTRIBUTION WIDTH 17.7 % (12.0-15.0); WHITE BLOOD COUNT 5.8 x10^3/uL (4.8-10.8)
[2020-12-29 05:13] LABS: ALBUMIN 2.9 g/dL (3.2-5.5); ALBUMIN/GLOBULIN RATIO 1.3 (1.0-2.2); BILIRUBIN,TOTAL 0.7 mg/dL (0.2-1.0); CALCIUM 8.4 mg/dL (8.5-10.3); CREATININE 0.8 mg/dL (0.4-1.0); MAGNESIUM 1.9 mg/dL (1.7-2.8); PHOSPHORUS 3.3 mg/dL (2.5-4.6); TOTAL PROTEIN 5.2 g/dL (6.7-8.2)
--- NOTE | 2020-12-29 05:25 | PROVIDER PROGRESS NOTE ---
Progress Note Subjective: Patient is postoperative day #1 status post below listed urgent procedure. [place] in place. Overall feels better. Awaiting resumption of bowel function. Procedure Performed: 1. Diagnostic laparoscopy 2. Laparoscopic abdominal washout 3. Laparoscopic assisted abscess drainage 4. Laparoscopic segmental colectomy 5. Laparoscopic drain placement 6. Saline immersion and insufflation test, pancolonic 7. Umbilical hernia repair 8. Tap block per anesthesia Objective Hemodynamically acceptable, afebrile General Appearance: positive: No acute distress Eyes Bilateral: positive: Normal inspection ENT: positive: ENT inspection nml Neck: positive: Nml inspection Respiratory: positive: Chest non-tender, No respiratory distress, Breath sounds nml. negative: Wheezes, Rales, Rhonchi Cardiovascular: positive: Regular rate & rhythm Abdomen: positive: No distention, Other. negative: Guarding, Rebound Appropriately tender; wounds clean dry and intact; drain serosanguineous Extremities: positive: Non-tender, Full ROM, Nml appearance Neurologic/Psychiatric: positive: Oriented x3, CN's nml (2-12) Impression/Plan Post operative day #1 status post above listed procedure. Large pelvic abscess secondary to iatrogenic, coloscopic perforation. Plan going forward is as follows. (1) GI - IVF, bowel regimen, advance diet as tolerated. GI ppx. [Anticipate ileus]. Opiate sparring analgesia. (2) SURGERY - continue ZHANG/Filippo drain. (3) Renal/Lytes - continue IVF. Renal indices within normal limits. Maintain [place] through tomorrow. Replete lytes, magnesium, potassium and phosphate. (4) Respiratory - O2 as necessary. Continue IS. (5) Heme - Will continue with DVT ppx. H/H stable. (6) Cardiovascular - HD acceptable. (7) Neuro - Opiate sparring analgesia. Antispasmodics with Robaxin. (8) Immune/Infectious Disease - awaiting operative cultures. May need outpatient IV antibiotics. (9) Physical therapy and Occupational Therapy
--- NOTE | 2020-12-29 05:26 | PROVIDER PROGRESS NOTE ---
Progress Note Subjective: Patient is postoperative day #2 status post below listed urgent procedure. [place] removed. Voiding. Multiple bowel movements. Continues to feels better. Procedure Performed: 1. Diagnostic laparoscopy 2. Laparoscopic abdominal washout 3. Laparoscopic assisted abscess drainage 4. Laparoscopic segmental colectomy 5. Laparoscopic drain placement 6. Saline immersion and insufflation test, pancolonic 7. Umbilical hernia repair 8. Tap block per anesthesia Objective Hemodynamically acceptable, afebrile General Appearance: positive: No acute distress Eyes Bilateral: positive: Normal inspection ENT: positive: ENT inspection nml Neck: positive: Nml inspection Respiratory: positive: Chest non-tender, No respiratory distress, Breath sounds nml. negative: Wheezes, Rales, Rhonchi Cardiovascular: positive: Regular rate & rhythm Abdomen: positive: No distention, Other. negative: Guarding, Rebound Appropriately tender; wounds clean dry and intact; drain serosanguineous Extremities: positive: Non-tender, Full ROM, Nml appearance Neurologic/Psychiatric: positive: Oriented x3, CN's nml (2-12) Impression/Plan Post operative day #2 status post above listed procedure. Large pelvic abscess secondary to iatrogenic, coloscopic perforation. Plan going forward is as follows. (1) GI - D/C IVF, discontinue bowel regimen, advance diet as tolerated. GI ppx. Opiate sparring analgesia. (2) SURGERY - continue ZHANG/Filippo drain. Will plan discharge with Filippo Drain. (3) Renal/Lytes - Discontinue IVF. Renal indices within normal limits. Resume Lasix daily. Replete lytes, magnesium, potassium and phosphate. (4) Respiratory - O2 as necessary. Continue IS. (5) Heme - Will continue with DVT ppx. H/H stable. (6) Cardiovascular - HD acceptable. (7) Neuro - Opiate sparring analgesia. Antispasmodics with Robaxin. (8) Immune/Infectious Disease - awaiting operative cultures. May need outpatient IV antibiotics. Continue Cipro/Flagyl. (9) Physical therapy and Occupational Therapy
[2020-12-29] MEDS: LEVOTHYROXINE 75 MCG TABLET PO SCH (05:52)
[2020-12-29] MEDS: PANTOPRAZOLE 40 MG TABLET PO SCH (05:52)
[2020-12-29] MEDS: methocarbamoL 500 MG TABLET PO SCH ×3 (05:52→17:09)
[2020-12-29] MEDS: METOCLOPRAMIDE 10 MG/2 ML VIAL IVP SCH ×3 (05:53→17:50)
[2020-12-29] MEDS: SODIUM CHLORIDE FLUSH 0.9% 10 ML SYRINGE IVP SCH ×2 (05:53→17:12)
[2020-12-29] MEDS: metroNIDAZOLE 500 MG/100 ML 500 MG/100 ML BAG IV SCH ×2 (05:57→13:40)
[2020-12-29] MEDS ORDERED: FUROSEMIDE 40 MG TABLET PO SCH (09:00)
[2020-12-29] MEDS: ACETAMINOPHEN 1,000 MG/100 ML 100 ML IV PRN (09:06)
[2020-12-29] MEDS: SODIUM CHLORIDE FLUSH 0.9% 10 ML SYRINGE IVP PRN ×2 (09:07→13:40)
[2020-12-29] MEDS ORDERED: DOCUSATE SODIUM 250 MG CAPSULE PO PRN (09:13)
[2020-12-29] MEDS: CHOLECALCIFEROL 25 MCG TABLET PO SCH (09:14)
[2020-12-29] MEDS: SACCHAROMYCES BOULARDII 250 MG CAPSULE PO SCH ×2 (09:15→17:09)
[2020-12-29] MEDS: ASCORBIC ACID CHEW 500 MG TABLET PO SCH (09:15)
[2020-12-29] MEDS: allopurinoL 100 MG TABLET PO SCH (09:16)
[2020-12-29] MEDS: TOLTERODINE LA 2 MG CAPSULE PO SCH (09:18)
[2020-12-29] MEDS: ENOXAPARIN 40 MG/0.4 ML SYRINGE SUBQ SCH (09:18)
[2020-12-29] MEDS: MULTIVITAMIN TABLET PO SCH (09:18)
[2020-12-29] MEDS: METOPROLOL SUCCINATE 50 MG TABLET PO SCH (09:21)
[2020-12-29] MEDS: LOSARTAN 50 MG TABLET PO SCH (09:22)
[2020-12-29] MEDS: CIPROFLOXACIN 400 MG/200 ML 400 MG/200 ML BAG IV SCH (09:39)
[2020-12-29] MEDS: HYDROmorphone 0.5 MG/0.5 ML SYRINGE IVP PRN (13:40)
--- NOTE | 2020-12-29 15:30 | Discharge Plan ---
Discharge Plan Problem Reviewed?: Yes Disposition: Home, Self Care Condition: Good Prescriptions: Tramadol HCl [Ultram] 50 mg PO Q4HR PRN #48 tablet PRN Reason: Pain methocarbamoL [Robaxin] 500 mg PO Q6HR PRN #40 tablet PRN Reason: Spasms Ciprofloxacin HCl [Cipro] 500 mg PO BID #14 tablet Docusate Sodium 250Mg Capsule [Colace 250Mg Capsule] 250 - 500 mg PO DAILY PRN #60 cap PRN Reason: Constipation metroNIDAZOLE [Flagyl] 500 mg PO TID #21 tablet polyethylene glycoL 3350 [Miralax] 17 gm PO DAILY PRN #30 packet PRN Reason: Bowel Protocol Diet: Soft Activity Restrictions: Wt Bearing as Tolerated Shower Restrictions: No Driving Restrictions: Yes (No driving while taking pain medications) Instruction Topics: Colon Surg Laparoscopic, Umbilical Hernia Repair After Care Goals: DISCHARGE INSTRUCTIONS: To be discharged with drain and be instructed on drain care. Please present to clinic on Sunday for drain removal. Be certain to complete course of antibiotics as directed. No heavy lifting, pushing, or pulling. Stairs are allowed, no strenuous/exertional activities. 5-10lbs weight carrying limit (i.e. gallon of milk) If provided, abdominal binder while out of bed and while ambulating. Call or proceed to clinic/ER for fevers, severe pain, nausea, vomiting, inability to pass flatus/stool, bleeding, wound redness/discharge, weakness, excessively loose stool/diarrhea, or for any other reasonably worrisome symptom or concern. Soft diet, no raw vegetables, avoid high fiber foods. Colace 100mg by mouth twice to three times daily while taking narcotic pain medication. If no bowel movement in 24-48hr, may take 17g Miralax in 8oz water twice daily until bowel movement. May shower, no submersive bathing. Follow up in clinic in 2-4 weeks for wound check and staple removal. No driving while taking narcotic pain medications. Follow up with primary care provider and/or medical subspecialist following discharge as well. Patient not allowed to drive self today or within 24 hours of surgery; No driving if taking narcotic pain medications. Additional Instructions or Follow Up instructions: 1. Return to clinic for drain removal on Sunday, January 03 2. Patient to come to clinic for follow-up on January 10 with me. No Smoking: If you smoke, Please STOP! Call for help. Follow-up with: Davin Pineda MD [Primary Care Provider] - Long Whyte MD [Provider Admit Priv/Credential] -
--- NOTE | 2020-12-29 15:30 | DISCHARGE SUMMARY ---
"Discharge Summary Admit Date: 12/24/20 Discharge Date: 12/29/20 Discharging Provider: Pato Code Status: Attempt Resuscitation Condition at Discharge: Good Discharge Disposition: 01 Home, Self Care - DIAGNOSES Admission Diagnoses: 1. Colonic polyps, Status post resection 2. Colonic angiodysplastic lesions 3. Recent colonoscopy status post argon beam ablation and polypectomy 4. Post polypectomy syndrome 5. Suspected perforation 6. Multiple core morbidities Discharge Diagnoses with Status of Each Condition: 1. Colonic polyps, Status post resection - No leak by Dx Lap 2. Colonic angiodysplastic lesions - C/B perforation (resected) 3. Recent colonoscopy status post argon beam ablation and polypectomy - C/B perforation (resected) 4. Post polypectomy syndrome - Addressed/Resolved 5. Documented perforation - Resected 6. Pelvic abscess - status post diagnostic laparoscopy and drainage/resolved 7. Multiple core morbidities - STABLE 8. Electrolyte abnormalities including hypokalemia, hypomagnesemia, hypophosphatemia - TREATED 9. Ileus - resolved - HPI History of Present Illness: 85-year-old female status post colonoscopy/endoscopies presenting with severe abdominal pain. Multiple polypectomies/interventions as well as thermal ablation for angiodysplasia as well. CT scan as follows: Impression: 1. Suggestion of mild diffuse colonic wall thickening which raised may progress represent low-grade infectious or inflammatory colitis. Sigmoid diverticulosis without evidence of acute diverticulitis. 2. Appendix is not definitively identified. Early appendicitis cannot be excluded. No abscess collection. Small amount of free fluid in lower abdomen and pelvis. No gross free air. 3. Distal gastric wall thickening particularly involving the pylorus and gastric antrum. Possible proximal duodenal wall thickening. Finding may represent gastritis and duodenitis. 4. Hypodensities noted in right and left hepatic lobes as described above which may represent hepatic cysts. Emergency room called primary endoscopist after speaking with surgery and they requested admission for observation. Endoscopy report with the following impressions: 1. Status post cold snare polypectomy transverse colon 3mm removed 2. Noted diverticulosis within sigmoid colon without diverticulitis 3. Nonbleeding internal hemorrhoid 4. Angiodysplastic lesions - 7 total; treated ARGON beam coagulation (Cecum, Appendiceal Orificie) - CONSULTS | PROCEDURES Consultations: None Procedures: Pre-Op Diagnosis: Iatrogenic perforation, pelvic abscess, peritonitis, free abdominal fluid Procedure Performed: 1. Diagnostic laparoscopy 2. Laparoscopic abdominal washout 3. Laparoscopic assisted abscess drainage 4. Laparoscopic segmental colectomy 5. Laparoscopic drain placement 6. Saline immersion and insufflation test, pancolonic 7. Umbilical hernia repair 8. Tap block per anesthesia Post Op Diagnosis: Same; pelvic abscess drained; no leak on saline immersion with insufflation - HOSPITAL COURSE Hospital Course: Hospital day #0/1 s/p listed procedue (outpatient colonoscopy with argon being ablation of multiple angio dysplastic lesions as well as polypectomy). History of hypertension and hypothyroidism. Persistent abdominal pain in spite of antibiotics and bowel rest. Initially admitted observation however continues with abdominal discomfort. Concern for post polypectomy syndrome versus contained perforation from argon ablation notably in the right colon where mural thickness is comparably thinner and complications are higher. Convert to admission with continued serial abdominal exams. (1) GI - IVF, bowel rest. GI ppx. Anticipate ileus. Opiate sparring analgesia. (2) SURGERY - we will order repeat CAT scan with p.o. and rectal contrast to evaluate for perforation given the patient's persistent abdominal discomfort. (3) Renal/Lytes - continue IVF. Renal indices within normal limits. Hypokalemia will replace. (4) Respiratory - O2 as necessary. Continue IS. Diuresis. (5) Heme - Will hold DVT ppx. H/H stable. (6) Cardiovascular - HD acceptable. (7) Neuro - Opiate sparring analgesia. Antispasmodics with Robaxin. (8) PT/OT. (9) INFECTIOUS DISEASE - continue Cipro and Flagyl together with serial abdominal exams Patient was evaluated with persistent abdominal pain. Patient ultimately underwent repeat imaging which revealed pelvic abscess with concern for perforation in the setting of argon ablation of the cecum which is a high risk region given the comparable mural thickness relative to the rest of the colon. Patient underwent operative intervention as listed in the electronic medical record. Tolerated procedure well for which there was no complication. Postoperatively the patient was managed for postoperative analgesia and re sumption of bowel function. Patient had successfully passed trial of void. Tolerated oral intake without any complication. Denied nausea denied vomiting. Was advanced for diet without any complication. Was counseled that given evidence of suppuration in the setting of the patient's perforation would recommend continued antibiotics for 10 days; patient was maintained on antibiotics during the hospital stay. Discharge instructions given. Analgesia with tramadol provided at time of discharge. Patient plan for follow-up and will be notified of pathology once returned. The patient would be discharged with drain in place for outpatient evaluation and removal. - ALLERGIES Allergies/Adverse Reactions: Allergies Allergy/AdvReac Type Severity Reaction Status Date / Time meperidine HCl * Allergy Intermediate Hives Verified 12/24/20 13:56 [From Demerol] Iodine and Iodide Containing Allergy Mild Rash Verified 12/24/20 13:56 Produc - MEDICATIONS Home Medications: Ambulatory Orders Medication Instructions Recorded Confirmed Calcium Carbonate [Calcium] 1,200 mg PO DAILY 01/11/15 12/26/20 Metoprolol Succinate [Toprol Xl] 50 mg PO DAILY 01/11/15 12/26/20 Multivitamin [Multivitamins] 1 each PO DAILY 01/11/15 12/26/20 Omeprazole [PriLOSEC] 20 mg PO DAILY 01/11/15 12/26/20 Tolterodine Tartrate [Detrol LA] 2 mg PO DAILY 01/11/15 12/26/20 Allopurinol [Zyloprim] 300 mg PO DAILY 08/05/20 12/26/20 Furosemide [Lasix] 40 mg PO DAILY 08/05/20 12/26/20 Potassium Chloride 10 meq PO DAILY 08/05/20 12/26/20 Valsartan [Diovan] 160 mg PO DAILY 08/05/20 12/26/20 Levothyroxine Sodium [Synthroid] 75 mcg PO QDAC 12/25/20 12/26/20 Ascorbic Acid Chew [Vitamin C] 500 mg PO DAILY 12/26/20 12/26/20 Bacillus Coagulans [Digestive 1 tab PO DAILY 12/26/20 12/26/20 Advantage Kid Probio] Cholecalciferol [Vitamin D3] 75 mcg PO DAILY 12/26/20 12/26/20 Fexofenadine [Kelsea] 120 mg PO DAILY PRN 12/26/20 12/26/20 Ciprofloxacin HCl [Cipro] 500 mg PO BID #14 tablet 12/29/20 Docusate Sodium 250Mg Capsule 250 - 500 mg PO DAILY PRN #60 cap 12/29/20 [Colace 250Mg Capsule] Furosemide [Lasix] 40 mg PO DAILY tablet 12/29/20 Loratadine [Claritin] 10 mg PO DAILY PRN tablet 12/29/20 Saccharomyces Boulardii [Florastor] 250 mg PO BIDWM 12/29/20 Tramadol HCl [Ultram] 50 mg PO Q4HR PRN #48 tablet 12/29/20 Zinc Oxide 20% Oint [Zinc Oxide] 1 applic TOP PRN PRN 12/29/20 allopurinoL [Zyloprim] 300 mg PO DAILY tablet 12/29/20 methocarbamoL [Robaxin] 500 mg PO Q6HR PRN #40 tablet 12/29/20 metroNIDAZOLE [Flagyl] 500 mg PO TID #21 tablet 12/29/20 polyethylene glycoL 3350 [Miralax] 17 gm PO DAILY PRN #30 packet 12/29/20 - PHYSICAL EXAM AT DISCHARGE General Appearance: positive: Alert Eyes Bilateral: positive: Normal inspection, PERRL, EOMI ENT: positive: ENT inspection nml Neck: positive: Nml inspection Respiratory: positive: Chest non-tender, No respiratory distress, Breath sounds nml. negative: Wheezes, Rales, Rhonchi Cardiovascular: positive: Regular rate & rhythm Abdomen: positive: Non-tender, Other (Soft, appropriately tender, no rebound, no guarding, drain serosanguineous. Dressings clean dry and intact.) Back: positive: Nml inspection Skin: positive: Color nml, No rash Extremities: positive: Non-tender, Full ROM, Nml appearance Neurologic/Psychiatric: positive: Oriented x3, CN's nml (2-12), Motor nml, Sensation nml - LABS Result Diagrams: 12/29/20 04:04 12/29/20 04:04 - FOLLOW UP Follow Up: Follow-up for drain removal on Sunday and for postoperative follow-up the week after. - TIME SPENT Time Spent in Discharge (Minutes): 45"
[2020-12-29] MEDS ORDERED: metroNIDAZOLE 500 MG/100 ML 500 MG/100 ML BAG IV SCH (17:24)
[2020-12-29] MEDS ORDERED: CIPROFLOXACIN 400 MG/200 ML 400 MG/200 ML BAG IV SCH (17:25)
[2020-12-29 20:56] VITALS: BP 156/87
== END 2020-12-29 20:59 | disposition home or self-care (01) | DRG 329 ==
LOC: ED 13:53 → MS2 18:01 → OBSVTOIN 12-25 15:37
PROVIDERS: ADMIT Surgery; ATTEND Surgery
PROC: 0WJJ4ZZ Inspection of Pelvic Cavity, Percutaneous Endoscopic Approach (ICD-10-PCS; 2020-12-26)
PROC: 0W9J00Z Drainage of Pelvic Cavity with Drainage Device, Open Approach (ICD-10-PCS; 2020-12-26)
PROC: 3E1M38Z Irrigation of Peritoneal Cavity using Irrigating Substance, Percutaneous Approach (ICD-10-PCS; 2020-12-26)
PROC: 0DBH4ZZ Excision of Cecum, Percutaneous Endoscopic Approach (ICD-10-PCS; principal; 2020-12-26 16:00)
DX: R10.30 Lower abdominal pain, unspecified (principal); K91.89 Other postprocedural complications and disorders of digestive system; K64.8 Other hemorrhoids; K63.1 Perforation of intestine (nontraumatic); K65.1 Peritoneal abscess; Z86.010 Personal history of colon polyps; E87.6 Hypokalemia; K91.71 Accidental puncture and laceration of a digestive system organ or structure during a digestive system procedure; K63.0 Abscess of intestine; J90 Pleural effusion, not elsewhere classified; J98.11 Atelectasis; K56.7 Ileus, unspecified; K57.30 Diverticulosis of large intestine without perforation or abscess without bleeding; I10 Essential (primary) hypertension; E83.42 Hypomagnesemia; E83.39 Other disorders of phosphorus metabolism; E03.9 Hypothyroidism, unspecified; Z20.822 Contact with and (suspected) exposure to COVID-19; Z98.890 Other specified postprocedural states; R16.0 Hepatomegaly, not elsewhere classified; I72.2 Aneurysm of renal artery; K42.9 Umbilical hernia without obstruction or gangrene; Y83.8 Other surgical procedures as the cause of abnormal reaction of the patient, or of later complication, without mention of misadventure at the time of the procedure; Y92.234 Operating room of hospital as the place of occurrence of the external cause
CPT/HCPCS: 36415; 71045; 74177; 80053; 81003; 81599; 83690; 83735; 84100; 85025; 86850; 86900; 86901; 87070; 87077; 87181; 87205; 87631; 93005; 96365; 96366; 96367; 96368; 96375; 96376; 97116; 97161; 97165; 99285; A9270; G0378; J0131; J0330; J1170; J1650; J2765; J7120; Q9967; 0202U; 81001; 87086

== ENCOUNTER 2021-01-12 15:30 | Outpatient (CLI) | payer MEDICARE, OTHER ==
--- NOTE | 2021-01-12 16:40 | Ultrasound Report ---
PROCEDURE: Duplex Ext Veins Right INDICATIONS: PEDAL EDEMA TECHNIQUE: Real-time imaging, as well as color and pulse Doppler interrogation, were performed of the lower extr emity deep veins from the inguinal ligament to the popliteal fossa. COMPARISON: None. FINDINGS: The deep veins are normally compressible, and free of intraluminal thrombus. Color and pu lse Doppler demonstrate normal phasic intraluminal flow. There is normal augmentation response to di stal compression maneuver. IMPRESSION: No sonographic evidence of DVT. Reviewed by: Ritchie Mercer MD on 01/12/2021 4:39 PM PDT Approved by: Ritchie Mercer MD on 01/12/2021 4:39 PM PDT Station ID: [id number]
== END 2021-01-12 15:31 | disposition home or self-care (01) ==
LOC: DI 15:30
PROVIDERS: ATTEND Family Medicine
DX: R60.0 Localized edema (principal)

== ENCOUNTER 2021-05-16 10:46 | Outpatient (CLI) | payer MEDICARE, OTHER ==
--- NOTE | 2021-05-24 07:40 | DEXA Report ---
PROCEDURE: Dexa Spine and/or Hip INDICATIONS: POST MENOPAUSAL TECHNIQUE: Dual energy x-ray absorptiometry (DXA) was performed on a [employer] System. Regions measur ed are the AP Spine, femoral neck, and if needed forearm. COMPARISON: Similar study 01/22/2017.. FINDINGS: Lumbar Spine: Bone Mineral Density 1.4-3 g/cm/cm,T score 1.9, normal Left Hip: Bone Mineral Density 0.916 g/cm/cm,T score -0.7, normal Left Femoral Neck: Bone Mineral Density 0.828 g/cm/cm, T score -1.5, osteopenia (T score greater or equal to -1.0: NORMAL) (T score from -1.1 to -2.4: OSTEOPENIA) (T score less than or equal to -2.5 to: OSTEOPOROSIS) Impression: Normal bone mineral density of the lumbosacral spine and left hip region overall, althoug h there has been a reduction of bone mineral density at the left hip region overall of 4%, a statisti delvis significant change. Osteopenia at the left femoral neck. Patients with diagnosis of osteoporosis or osteopenia should have regular bone mineral density assess ment. For those eligible for Medicare, routine testing is allowed once every 2 years. Testing frequ ency can be increased for patients who have rapidly progressing disease or for those who are receivin g medical therapy to restore bone mass. Reviewed by: Eddie Mendoza MD on 05/16/2021 5:19 PM PDT Approved by: Eddie Mendoza MD on 05/16/2021 5:19 PM PDT Station ID: [id number]
== END 2021-05-16 10:47 | disposition home or self-care (01) ==
LOC: DI 10:46
PROVIDERS: ATTEND Family Medicine
DX: Z13.820 Encounter for screening for osteoporosis (principal); Z78.0 Asymptomatic menopausal state; M85.88 Other specified disorders of bone density and structure, other site

== ENCOUNTER 2021-05-22 16:11 | Emergency (ER) | payer MEDICARE, OTHER ==
[2021-05-22] MEDS ORDERED: methylPREDNISolone SUCCINATE 125 MG/2 ML VIAL IVP STA (16:31)
[2021-05-22] MEDS ORDERED: diphenhydrAMINE INJ 50 MG/ML VIAL IVP STA (16:31)
--- NOTE | 2021-05-22 16:41 | ED Physician Documentation ---
PD HPI ABD PAIN - Stated complaint Stated Complaint: abd px - Chief complaint Chief Complaint: Abd Pain - History obtained from History obtained from: Patient - History of Present Illness Timing - onset: How many months ago (1) Timing - duration: Months (1) Timing - details: Gradual onset, Intermittant, Waxing and waning Pain level max: 8 Pain level now: 1 Quality: Aching, Pain Location: LLQ Radiation: No: Chest, , Lower back, Left flank, Left shoulder, Right flank, Right shoulder, Upper back Improved by: Laying still Worsened by: Moving Associated symptoms: Diarrhea, Constipation. No: Fever, Nausea, Vomiting, Hematemesis, Melena, Hematochezia, Dysuria, Hematuria, Chest pain, Dizzy, Near syncope / syncope, Loss of appetite, Weight loss, Vaginal bleeding, Vaginal dc - Additional information Additional information: 86-year-old female presents with left lower quadrant abdominal pain. She had a colonic perforation after a colonoscopy about 3 months ago with a partial colectomy. No fevers. No chills. The pain started about a month ago and is intermittent. Seems to be worse with movement and better with rest. She states currently she is having little pain. Went to the walk-in clinic today and was sent here for evaluation. 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 HEENT: Cataracts - Present Medications Home Medications: Ambulatory Orders Medication Instructions Recorded Confirmed Calcium Carbonate [Calcium] 1,200 mg PO DAILY 01/11/15 03/02/21 Metoprolol Succinate [Toprol Xl] 50 mg PO DAILY 01/11/15 03/02/21 Multivitamin [Multivitamins] 1 each PO DAILY 01/11/15 03/02/21 Omeprazole [PriLOSEC] 20 mg PO DAILY 01/11/15 03/02/21 Tolterodine Tartrate [Detrol LA] 2 mg PO DAILY 01/11/15 03/02/21 Furosemide [Lasix] 40 mg PO DAILY 10/22/20 05/19/21 Potassium Chloride 10 meq PO DAILY 08/05/20 03/02/21 Valsartan [Diovan] 160 mg PO DAILY 08/05/20 03/02/21 allopurinoL [Zyloprim] 300 mg PO DAILY 08/05/20 03/02/21 Levothyroxine Sodium [Synthroid] 75 mcg PO QDAC 12/25/20 03/02/21 Ascorbic Acid [Vitamin C] 500 mg PO DAILY 12/26/20 03/02/21 Bacillus Coagulans [Digestive 1 tab PO DAILY 12/26/20 03/02/21 Advantage Kid Probio] Cholecalciferol [Vitamin D3] 75 mcg PO DAILY 12/26/20 03/02/21 Fexofenadine [Kelsea] 120 mg PO DAILY PRN 12/26/20 03/02/21 Ciprofloxacin HCl [Cipro] 500 mg PO BID #14 tablet 12/29/20 03/02/21 Docusate Sodium 250Mg Capsule 250 - 500 mg PO DAILY PRN #60 cap 12/29/20 03/02/21 [Colace 250Mg Capsule] Furosemide [Lasix] 40 mg PO DAILY tablet 12/29/20 03/02/21 Loratadine [Claritin] 10 mg PO DAILY PRN tablet 12/29/20 03/02/21 Saccharomyces Boulardii [Florastor] 250 mg PO BIDWM 12/29/20 03/02/21 Tramadol HCl [Ultram] 50 mg PO Q4HR PRN #48 tablet 12/29/20 03/02/21 Zinc Oxide 20% Oint [Zinc Oxide] 1 applic TOP PRN PRN 12/29/20 03/02/21 allopurinoL [Zyloprim] 300 mg PO DAILY tablet 12/29/20 03/02/21 methocarbamoL [Robaxin] 500 mg PO Q6HR PRN #40 tablet 12/29/20 03/02/21 metroNIDAZOLE [Flagyl] 500 mg PO TID #21 tablet 12/29/20 03/02/21 polyethylene glycoL 3350 [Miralax] 17 gm PO DAILY PRN #30 packet 12/29/20 03/02/21 Amox/Clav 875/125 [Augmentin] 1 each PO Q8H #30 tablet 05/22/21 - Allergies Allergies/Adverse Reactions: Allergies Allergy/AdvReac Type Severity Reaction Status Date / Time meperidine HCl * Allergy Intermediate Hives Verified 05/22/21 16:24 [From Demerol] Iodine and Iodide Containing Allergy Mild Rash Verified 05/22/21 16:24 Produc - Social History Does the pt smoke?: No Smoking Status: Never smoker Does the pt drink ETOH?: Yes Does the pt have substance abuse?: No - Immunizations Immunizations are current?: Yes PD ED PE NORMAL - Vitals Vital signs reviewed: Yes - General General: Alert and oriented X 3, No acute distress, Well developed/nourished - HEENT HEENT: PERRL, Moist mucous membranes - Neck Neck: Supple, no meningeal sign - Cardiac Cardiac: RRR, Strong equal pulses - Respiratory Respiratory: No respiratory distress, Clear bilaterally - Abdomen Abdomen: Soft, Non distended, Other (mild TTP LLQ no peritoneal signs. incisions are clean, dry and intact.) - Back Back: No spinal TTP - Derm Derm: Warm and dry - Extremities Extremities: No edema - Neuro Neuro: Alert and oriented X 3 - Psych Psych: Normal mood, Normal affect Results - Vitals Vitals: Vital Signs - 24 hr 05/22/21 05/22/21 05/22/21 16:21 17:25 17:36 Temperature 36.6 C Heart Rate 76 71 74 Respiratory 16 16 16 Rate Blood Pressure 153/70 H 137/58 H 121/50 L O2 Saturation 100 98 96 05/22/21 18:00 Temperature Heart Rate 78 Respiratory 16 Rate Blood Pressure 121/49 L O2 Saturation 98 Oxygen O2 Source Room air - Labs Labs: Laboratory Tests 05/22/21 05/22/21 16:33 16:33 WBC 5.1 RBC 3.81 L Hgb 13.1 Hct 40.4 MCV 106.0 H MCH 34.4 H MCHC 32.4 RDW 14.5 Plt Count 167 MPV 10.5 Neut # (Auto) 2.7 Lymph # (Auto) 1.5 [place] # (Auto) 0.7 Eos # (Auto) 0.1 Baso # (Auto) 0.1 Absolute Nucleated RBC 0.00 Nucleated RBC % 0.0 Sodium 143 Potassium 4.1 Chloride 103 Carbon Dioxide 29 Anion Gap 11.0 BUN 36 H Creatinine 0.9 Estimated GFR (MDRD) 59 L Glucose 102 H Calcium 9.7 Total Bilirubin 1.0 AST 29 ALT 22 Alkaline Phosphatase 102 Total Protein 7.5 Albumin 4.5 Globulin 3.0 Albumin/Globulin Ratio 1.5 Lipase 26 - Rads (name of study) abd/pelvis CT Radiology: Final report received, EMP read contemporaneously, See rad report (Minimal to mild sigmoid diverticulitis, without findings of perforation or abscess. ) PD MEDICAL DECISION MAKING - ED course Complexity details: reviewed results, re-evaluated patient, considered differential, d/w patient ED course: 86-year-old female with mild diverticulitis. Given her recent history of abscess, perforation, discussed risks and benefits of antibiotics and will place on antibiotics. Patient is well-appearing, nontoxic. Afebrile. Patient counseled regarding signs and symptoms for which I believe and urgent re- evaluation would be necessary. Patient with good understanding of and agreement to plan and is comfortable going home at this time This document was made in part using voice recognition software. While efforts are made to proofread this document, sound alike and grammatical errors may occur. Departure - Departure Disposition: 01 Home, Self Care Clinical Impression: Diverticulitis Condition: Good Instructions: ED Diverticulitis Follow-Up: Davin Pineda MD [Primary Care Provider] - Within 1 week Prescriptions: Amox/Clav 875/125 [Augmentin] 1 each PO Q8H #30 tablet Comments: Take all antibiotics until gone. Please follow-up with your doctor for further care. Please return if you worsen. Discharge Date/Time: 05/22/21 18:08
[2021-05-22] MEDS ORDERED: IOPAMIDOL-300 100 ML VIAL ONE (16:44)
[2021-05-22 16:49] LABS: BASOPHILS # (AUTO) 0.1 10^3/uL (0.0-0.1); EOSINOPHILS # (AUTO) 0.1 10^3/uL (0.0-0.7); EOSINOPHILS % (AUTO) 1.8 %; HCT - HEMATOCRIT 40.4 % (37.0-47.0); HGB - HEMOGLOBIN 13.1 g/dL (12.0-16.0); LYMPHOCYTES # (AUTO) 1.5 10^3/uL (1.5-3.5); LYMPHOCYTES % (AUTO) 29.7 %; MEAN CORPUSCULAR HEMOGLOBIN 34.4 pg (27.0-31.0); MEAN CORPUSCULAR HGB CONC 32.4 g/dL (32.0-36.0); MEAN PLATELET VOLUME 10.5 fL (7.9-10.8); MONOCYTES # (AUTO) 0.7 10^3/uL (0.0-1.0); MONOCYTES % (AUTO) 12.9 %; NEUTROPHILS # (AUTO) 2.7 10^3/uL (1.5-6.6); NEUTROPHILS % (AUTO) 54.2 %; PLT - PLATELET COUNT 167 10^3/uL (130-450); RED BLOOD COUNT 3.81 10^6/uL (4.20-5.40); RED CELL DISTRIBUTION WIDTH 14.5 % (12.0-15.0); WHITE BLOOD COUNT 5.1 x10^3/uL (4.8-10.8)
[2021-05-22 16:57] LABS: ALBUMIN 4.5 g/dL (3.2-5.5); ALBUMIN/GLOBULIN RATIO 1.5 (1.0-2.2); CALCIUM 9.7 mg/dL (8.5-10.3); CREATININE 0.9 mg/dL (0.4-1.0); POTASSIUM 4.1 mmol/L (3.5-5.0); TOTAL PROTEIN 7.5 g/dL (6.7-8.2)
[2021-05-22] MEDS ORDERED: SODIUM CHLORIDE 0.9% 1,000 ML IV STA (17:08)
[2021-05-22] MEDS ORDERED: IOPAMIDOL-300 100 ML VIAL IVP ONE (17:23)
--- NOTE | 2021-05-22 17:33 | CT Report ---
PROCEDURE: Abdomen/Pelvis W INDICATIONS: LLQ abd pain CONTRAST: IV CONTRAST: Isovue 300 ml: 100 PO CONTRAST: *NO PO CONTRAST TECHNIQUE: After the administration of IV contrast, 5 mm thick sections acquired from the diaphragms to the symp hysis. 5 mm thick coronal and sagittal reformats were acquired. For radiation dose reduction, the f ollowing was used: automated exposure control, adjustment of mA and/or kV according to patient size. COMPARISON: 12/26/2020 FINDINGS: Image quality: Excellent. ABDOMEN: Lung bases: Lung bases are clear. Heart size is normal. Solid organs: Liver and spleen are normal in size and enhancement. Gallbladder wall does not appear thickened. Biliary system is non dilated. Pancreas enhances normally. No adrenal nodules. Kidn eys demonstrate normal size and enhancement, without hydronephrosis. Peritoneum and bowel: In this patient with this given history, scrutiny is given to the sigmoid colon and the left lower quadrant of the abdomen. There is mild wall thickening seen involving the sigmoid colon, where there is diverticula formation. Minimal surrounding inflammatory change can be seen. No other areas of bowel wall thickening can be seen. No dilated loops of small bowel are seen. No free air or significant free fluid can be seen. Right lower quadrant in the stomach staple lines are seen. Nodes and vessels: No retroperitoneal or mesenteric adenopathy by size criteria. Aorta and inferior vena cava are normal in size. 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 Incidental no te is made of a retroaortic left renal vein. Miscellaneous: No ventral hernias. PELVIS: Genitourinary: This patient is status post hysterectomy. No adnexal masses can be seen. Miscellaneous: No inguinal hernias or adenopathy. Bones: No suspicious bony lesions. No vertebral body compression fractures. Mild levoconvex scoliot ic curvature is seen. Age-appropriate degenerative changes are seen. IMPRESSION: Minimal to mild sigmoid diverticulitis, without findings of perforation or abscess. 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 Prior right lower quadrant postoperative change Levoconvex sclerotic curvature Hysterectomy Reviewed by: Anshu Self MD on 05/22/2021 4:31 PM AKDEBORAH Approved by: Anshu Self MD on 05/22/2021 4:31 PM AKDEBORAH Station ID: [id number]
[2021-05-22] MEDS ORDERED: AMOX/CLAV 875 MG/125 MG TABLET PO STA (17:49)
[2021-05-22 18:07] VITALS: BP 121/49
== END 2021-05-22 18:08 | disposition home or self-care (01) ==
LOC: ED 16:11
DX: K57.12 Diverticulitis of small intestine without perforation or abscess without bleeding (principal)
CPT/HCPCS: 36415; 74177; 80053; 83690; 85025; 96361; 96374; 99284; A9270; J1200; Q9967

== ENCOUNTER 2021-06-03 15:20 | Emergency (ER) | payer MEDICARE, OTHER ==
[2021-06-03] MEDS ORDERED: ONDANSETRON 4 MG/2 ML VIAL IVP STA (15:35)
[2021-06-03] MEDS ORDERED: MORPHINE 10 MG/ML VIAL IVP STA (15:35)
[2021-06-03] MEDS ORDERED: diphenhydrAMINE INJ 50 MG/ML VIAL IVP STA (15:37)
--- NOTE | 2021-06-03 15:39 | ED Physician Documentation ---
PD HPI ABD PAIN - Stated complaint Stated Complaint: ABD PX - Chief complaint Chief Complaint: Abd Pain - History obtained from History obtained from: Patient - History of Present Illness Pain level max: 8 Pain level now: 8 Quality: Aching, Pain Location: LLQ Radiation: No: Chest, , Lower back, Left flank, Left shoulder, Right flank, Right shoulder, Upper back Associated symptoms: Nausea. No: Fever, Vomiting, Hematemesis, Diarrhea, Constipation, Melena, Hematochezia, Dysuria - Additional information Additional information: Patient is an 86-year-old female who presents to the emergency department left lower quadrant abdominal pain. Patient had a perforation of her colon after colonoscopy about 3-1/2 months ago and underwent partial colectomy. She was treated 2 weeks ago for diverticulitis, pain resolved and symptoms improved. Yesterday began to develop left lower quadrant abdominal pain, the pain is steadily worsening today. No fevers. No chills. Worse with palpation and movement. Nothing makes it better. No vomiting. No diarrhea or constipation. Review of Systems Constitutional: denies: Fever, Chills Respiratory: denies: Cough GI: reports: Nausea. 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 HEENT: Cataracts - Present Medications Home Medications: Ambulatory Orders Medication Instructions Recorded Confirmed Calcium Carbonate [Calcium] 1,200 mg PO DAILY 01/11/15 06/03/21 Omeprazole [PriLOSEC] 20 mg PO DAILY 01/11/15 06/03/21 Tolterodine Tartrate [Detrol LA] 2 mg PO DAILY 01/11/15 06/03/21 Potassium Chloride 10 meq PO DAILY 08/05/20 06/03/21 Valsartan [Diovan] 160 mg PO DAILY 08/05/20 06/03/21 Levothyroxine Sodium [Synthroid] 75 mcg PO QDAC 12/25/20 06/03/21 Ascorbic Acid [Vitamin C] 500 mg PO DAILY 12/26/20 06/03/21 Bacillus Coagulans [Digestive 1 tab PO DAILY 12/26/20 06/03/21 Advantage Kid Probio] Cholecalciferol [Vitamin D3] 75 mcg PO DAILY 12/26/20 06/03/21 Fexofenadine [Kelsea] 120 mg PO DAILY PRN 12/26/20 06/03/21 Furosemide [Lasix] 40 mg PO DAILY tablet 12/29/20 06/03/21 allopurinoL [Zyloprim] 300 mg PO DAILY tablet 12/29/20 06/03/21 Brimonidine 0.1% Ophth Drops 1 drops OPTH BID 06/01/21 06/03/21 [Alphagan P 0.1% Ophth Drops] Ondansetron Odt [Zofran] 4 mg TL Q6H PRN #10 tablet 06/03/21 Oxycodone HCl/Acetaminophen 1 - 2 each PO Q6H PRN #14 tablet 06/03/21 [Percocet 5-325 mg Tablet] - Allergies Allergies/Adverse Reactions: Allergies Allergy/AdvReac Type Severity Reaction Status Date / Time meperidine HCl * Allergy Intermediate Hives Verified 06/03/21 15:27 [From Demerol] Iodine and Iodide Containing Allergy Mild Rash Verified 06/03/21 15:27 Produc - Social History Does the pt smoke?: No Smoking Status: Never smoker Does the pt drink ETOH?: Yes Does the pt have substance abuse?: No - Immunizations Immunizations are current?: Yes PD ED PE NORMAL - Vitals Vital signs reviewed: Yes - General General: Alert and oriented X 3, No acute distress, Well developed/nourished - HEENT HEENT: PERRL, Moist mucous membranes - Neck Neck: Supple, no meningeal sign - Cardiac Cardiac: RRR - Respiratory Respiratory: No respiratory distress - Abdomen Abdomen: Soft, Non tender, Non distended, Other (Diffusely tender palpation left lower quadrant, left upper quadrant and right lower quadrant. Guarding, no rebound.) - Derm Derm: Warm and dry - Extremities Extremities: No edema - Neuro Neuro: Alert and oriented X 3 - Psych Psych: Normal mood, Normal affect Results - Vitals Vitals: Vital Signs - 24 hr 06/03/21 06/03/21 15:24 17:31 Temperature 36.6 C 36.6 C Heart Rate 60 55 L Respiratory 16 20 Rate Blood Pressure 171/62 H 154/71 H O2 Saturation 100 98 Oxygen O2 Source Room air - Labs Labs: Laboratory Tests 06/03/21 06/03/21 15:45 15:45 WBC 4.8 RBC 3.55 L Hgb 12.6 Hct 37.8 MCV 106.5 H MCH 35.5 H MCHC 33.3 RDW 13.4 Plt Count 143 MPV 10.3 Neut # (Auto) 2.6 Lymph # (Auto) 1.2 L Pender # (Auto) 0.8 Eos # (Auto) 0.1 Baso # (Auto) 0.0 Absolute Nucleated RBC 0.00 Nucleated RBC % 0.0 Sodium 142 Potassium 4.1 Chloride 107 Carbon Dioxide 24 Anion Gap 11.0 BUN 35 H Creatinine 1.2 H Estimated GFR (MDRD) 43 L Glucose 96 Calcium 9.8 Total Bilirubin 0.8 AST 28 ALT 24 Alkaline Phosphatase 82 Total Protein 6.9 Albumin 4.1 Globulin 2.8 Albumin/Globulin Ratio 1.5 Lipase 27 - Rads (name of study) abdomen/pelvis CT Radiology: Final report received, EMP read contemporaneously, See rad report PD MEDICAL DECISION MAKING - ED course Complexity details: reviewed old records, reviewed results, re-evaluated patient, considered differential, d/w patient, d/w family ED course: Patient with abdominal pain of unclear etiology. No evidence of diverticulitis, perforation, abscess. We will place on pain medications for home and have her follow-up with her doctor for further care. Patient is well-appearing, nontoxic. Afebrile. Abdomen is soft, minimally tender on serial examination. Tolerating p.o. without difficulty. Patient counseled regarding signs and symptoms for which I believe and urgent re-evaluation would be necessary. Patient with good understanding of and agreement to plan and is comfortable going home at this time This document was made in part using voice recognition software. While efforts are made to proofread this document, sound alike and grammatical errors may occur. IMPRESSION: 1. Mild smooth wall thickening of the transverse colon without significant inflammatory change could reflect a mild colitis. No obstruction or abscess present. 2. Sigmoid diverticulosis without evidence of focal diverticulitis. 3. 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 Your CT scan does not show any diverticulitis, abscess or perforation today. Hopefully the pain will improve over the next 2 to 3 days. Return if you worsen. Follow-up with your doctor in 3 days for recheck. I am prescribing a short course of narcotic pain medication for you. These are potentially dangerous and addictive medications that should be used carefully. These medications may constipate you. Take an byuu-jgh-[id number] stool softener (docusate) twice daily with plenty of water while taking these medications. If you go 24 hours without a bowel movement, take [id number] miralax, per package instructions. Do not drink or drive while taking these medications. If you received narcotic or sedating medications while in the emergency department, do not drive for 24 hours. Store this medication in a safe, secure place and out of reach of children. It is a violation of federal law to give or sell this medication to another person or to use in a manner other than prescribed. The ED will not refill narcotic prescriptions, including prescriptions lost or stolen. To dispose of unwanted medications: 1. [facility] at [address] in [place] has a medication drop box. They accept prescription medications (in pill form) Sunday through Sunday 9:00 a.m. to 5:00 p.m. 2. The [facility] [employer] accepts prescription medications (in pill form only) for disposal year round. Call for more information. 3. Contact the [facility] for the next [facility] sponsored prescription drug collection event. , [phone], or [phone]; Discharge Date/Time: 06/03/21 17:39
[2021-06-03] MEDS ORDERED: IOPAMIDOL-300 50 ML VIAL ONE (15:42)
[2021-06-03 15:50] LABS: BASOPHILS % (AUTO) 0.8 %; EOSINOPHILS # (AUTO) 0.1 10^3/uL (0.0-0.7); EOSINOPHILS % (AUTO) 1.5 %; HCT - HEMATOCRIT 37.8 % (37.0-47.0); HGB - HEMOGLOBIN 12.6 g/dL (12.0-16.0); LYMPHOCYTES # (AUTO) 1.2 10^3/uL (1.5-3.5); LYMPHOCYTES % (AUTO) 25.9 %; MEAN CORPUSCULAR HEMOGLOBIN 35.5 pg (27.0-31.0); MEAN CORPUSCULAR HGB CONC 33.3 g/dL (32.0-36.0); MEAN CORPUSCULAR VOLUME 106.5 fL (81.0-99.0); MEAN PLATELET VOLUME 10.3 fL (7.9-10.8); MONOCYTES # (AUTO) 0.8 10^3/uL (0.0-1.0); MONOCYTES % (AUTO) 16.1 %; NEUTROPHILS # (AUTO) 2.6 10^3/uL (1.5-6.6); NEUTROPHILS % (AUTO) 55.3 %; PLT - PLATELET COUNT 143 10^3/uL (130-450); RED BLOOD COUNT 3.55 10^6/uL (4.20-5.40); RED CELL DISTRIBUTION WIDTH 13.4 % (12.0-15.0); WHITE BLOOD COUNT 4.8 x10^3/uL (4.8-10.8)
[2021-06-03 16:04] LABS: ALBUMIN 4.1 g/dL (3.2-5.5); ALBUMIN/GLOBULIN RATIO 1.5 (1.0-2.2); BILIRUBIN,TOTAL 0.8 mg/dL (0.2-1.0); CALCIUM 9.8 mg/dL (8.5-10.3); CREATININE 1.2 mg/dL (0.4-1.0); POTASSIUM 4.1 mmol/L (3.5-5.0); TOTAL PROTEIN 6.9 g/dL (6.7-8.2)
--- NOTE | 2021-06-03 16:52 | CT Report ---
PROCEDURE: Abdomen/Pelvis W INDICATIONS: LLQ Abdominal pain, diverticulitis suspected CONTRAST: IV CONTRAST: Isovue 300 ml: 100 PO CONTRAST: *NO PO CONTRAST TECHNIQUE: After the administration of contrast, 5 mm thick sections acquired from the diaphragms to the sym physis. 5 mm thick coronal and sagittal reformats were acquired. For radiation dose reduction, the following was used: automated exposure control, adjustment of mA and/or kV according to patient size . COMPARISON: None. FINDINGS: Image quality: Excellent. ABDOMEN: Lung bases: Lung bases are clear. Heart size is normal. Solid organs: Right hepatic cyst remains unchanged in prior exam. The spleen and both kidneys are sta ble with bilateral renal scarring. Adrenal glands, pancreas gallbladder normal.. Peritoneum and bowel: Bowel loops demonstrate normal wall thickness and caliber. No free fluid or a ir. Multiple diverticula arise from the sigmoid colon without evidence of diverticulitis. There is m ild wall thickening involving the transverse colon without pericolonic inflammatory change. Colon is nondistended as well. 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 noted. Nodes and vessels: No retroperitoneal or mesenteric adenopathy by size criteria. Aorta and inferior vena cava are normal in size. Calcified right renal artery aneurysm again, unchanged. Incidental le ft retroaortic renal vein is noted as well. Atherosclerotic calcification of the abdominal aorta with out evidence of aneurysm. Miscellaneous: No ventral hernias. PELVIS: Genitourinary: Bladder wall thickness is normal. Miscellaneous: No inguinal hernias or adenopathy. Bones: No suspicious bony lesions. No vertebral body compression fractures. Multilevel degenerativ e disc disease and arthropathy noted lower lumbar spine IMPRESSION: 1. Mild smooth wall thickening of the transverse colon without significant inflammatory change could reflect a mild colitis. No obstruction or abscess present. 2. Sigmoid diverticulosis without evidence of focal diverticulitis. 3. 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
[2021-06-03] MEDS ORDERED: oxyCODONE 5 MG TABLET PO STA (17:19)
[2021-06-03 17:33] VITALS: BP 154/71
[2021-06-03] MEDS ORDERED: IOPAMIDOL-300 50 ML VIAL PO ONE (18:52)
== END 2021-06-03 17:39 | disposition home or self-care (01) ==
LOC: ED 15:20
DX: R10.32 Left lower quadrant pain (principal); I10 Essential (primary) hypertension
CPT/HCPCS: 36415; 74177; 80053; 83690; 85025; 96374; 96375; 99284; A9270; J1200; Q9967

== ENCOUNTER 2021-06-26 12:35 | Emergency (ER) | payer MEDICARE, OTHER ==
[2021-06-26 14:11] LABS: EOSINOPHILS # (AUTO) 0.1 10^3/uL (0.0-0.7); EOSINOPHILS % (AUTO) 1.7 %; HCT - HEMATOCRIT 40.1 % (37.0-47.0); HGB - HEMOGLOBIN 13.6 g/dL (12.0-16.0); LYMPHOCYTES # (AUTO) 1.2 10^3/uL (1.5-3.5); LYMPHOCYTES % (AUTO) 29.2 %; MEAN CORPUSCULAR HEMOGLOBIN 35.9 pg (27.0-31.0); MEAN CORPUSCULAR HGB CONC 33.9 g/dL (32.0-36.0); MEAN CORPUSCULAR VOLUME 105.8 fL (81.0-99.0); MEAN PLATELET VOLUME 11.2 fL (7.9-10.8); MONOCYTES # (AUTO) 0.5 10^3/uL (0.0-1.0); NEUTROPHILS # (AUTO) 2.2 10^3/uL (1.5-6.6); NEUTROPHILS % (AUTO) 55.9 %; PLT - PLATELET COUNT 166 10^3/uL (130-450); RED BLOOD COUNT 3.79 10^6/uL (4.20-5.40); RED CELL DISTRIBUTION WIDTH 13.2 % (12.0-15.0)
[2021-06-26 14:25] LABS: ALBUMIN 4.7 g/dL (3.2-5.5); ALBUMIN/GLOBULIN RATIO 1.6 (1.0-2.2); BILIRUBIN,TOTAL 0.8 mg/dL (0.2-1.0); CALCIUM 10.2 mg/dL (8.5-10.3); CREATININE 1.1 mg/dL (0.4-1.0); POTASSIUM 4.5 mmol/L (3.5-5.0); TOTAL PROTEIN 7.6 g/dL (6.7-8.2)
--- NOTE | 2021-06-26 14:40 | ED Physician Documentation ---
PD HPI ABD PAIN - Stated complaint Stated Complaint: ABD PX - Chief complaint Chief Complaint: Abd Pain - History obtained from History obtained from: Patient - Additional information Additional information: Patient comes emergency department chief complaint of lump and pain in left lower quadrant that has been going on approximately the last week. Patient is not actually sure when the "lump" came up, but she noticed it around a week ago. No fever or chills. No nausea or vomiting. No constipation. Patient takes Metamucil and states her stools are soft. No blood in her stool. No history of hernia. Patient did have surgery for peritonitis from diverticulitis this last spring, she states, and is not sure if this is related. No injuries. No other complaints at this time. Review of Systems Ten Systems: 10 systems reviewed and negative Constitutional: reports: Reviewed and negative Eyes: reports: Reviewed and negative Ears: reports: Reviewed and negative Nose: reports: Reviewed and negative Throat: reports: Reviewed and negative Cardiac: reports: Reviewed and negative Respiratory: reports: Reviewed and negative GI: reports: Abdominal Pain. 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, 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 HEENT: Cataracts - Present Medications Home Medications: Ambulatory Orders Medication Instructions Recorded Confirmed Calcium Carbonate [Calcium] 1,200 mg PO DAILY 01/11/15 06/26/21 Omeprazole [PriLOSEC] 20 mg PO DAILY 01/11/15 06/26/21 Tolterodine Tartrate [Detrol LA] 2 mg PO DAILY 01/11/15 06/26/21 Potassium Chloride 10 meq PO DAILY 08/05/20 06/26/21 Valsartan [Diovan] 160 mg PO DAILY 08/05/20 06/26/21 Levothyroxine Sodium [Synthroid] 75 mcg PO QDAC 12/25/20 06/26/21 Ascorbic Acid [Vitamin C] 500 mg PO DAILY 12/26/20 06/26/21 Bacillus Coagulans [Digestive 1 tab PO DAILY 12/26/20 06/26/21 Advantage Kid Probio] Cholecalciferol [Vitamin D3] 75 mcg PO DAILY 12/26/20 06/26/21 Fexofenadine [Kelsea] 120 mg PO DAILY PRN 12/26/20 06/26/21 Furosemide [Lasix] 40 mg PO DAILY tablet 12/29/20 06/26/21 allopurinoL [Zyloprim] 300 mg PO DAILY tablet 12/29/20 06/26/21 Brimonidine 0.1% Ophth Drops 1 drops OPTH BID 06/01/21 06/26/21 [Alphagan P 0.1% Ophth Drops] Ondansetron Odt [Zofran] 4 mg TL Q6H PRN #10 tablet 06/03/21 06/26/21 Oxycodone HCl/Acetaminophen 1 - 2 each PO Q6H PRN #14 tablet 06/03/21 06/26/21 [Percocet 5-325 mg Tablet] - Allergies Allergies/Adverse Reactions: Allergies Allergy/AdvReac Type Severity Reaction Status Date / Time meperidine HCl * Allergy Intermediate Hives Verified 06/26/21 12:38 [From Demerol] Iodine and Iodide Containing Allergy Mild Rash Verified 06/26/21 12:38 Produc - Social History Does the pt smoke?: No Smoking Status: Never smoker Does the pt drink ETOH?: Yes Does the pt have substance abuse?: No - Immunizations Immunizations are current?: Yes PD ED PE NORMAL - Vitals Vital signs reviewed: Yes - General General: Alert and oriented X 3, No acute distress, Well developed/nourished - HEENT HEENT: Atraumatic, PERRL, EOMI, Moist mucous membranes - Neck Neck: Supple, no meningeal sign - Cardiac Cardiac: RRR, No murmur - Respiratory Respiratory: No respiratory distress, Clear bilaterally - Abdomen Abdomen: Soft, Non distended, Other (Patient has a firm but mobile mass that is approximately 6 x 4 cm in her left lower quadrant. It is tender to palpation. No skin changes overlying. 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, Normal speech - Psych Psych: Normal mood, Normal affect Results - Vitals Vitals: Oxygen O2 Source Room air - Labs Labs: Laboratory Tests 06/26/21 06/26/21 14:03 14:03 WBC 4.0 L RBC 3.79 L Hgb 13.6 Hct 40.1 MCV 105.8 H MCH 35.9 H MCHC 33.9 RDW 13.2 Plt Count 166 MPV 11.2 H Neut # (Auto) 2.2 Lymph # (Auto) 1.2 L [place] # (Auto) 0.5 Eos # (Auto) 0.1 Baso # (Auto) 0.0 Absolute Nucleated RBC 0.00 Nucleated RBC % 0.0 Sodium 139 Potassium 4.5 Chloride 103 Carbon Dioxide 25 Anion Gap 11.0 BUN 32 H Creatinine 1.1 H Estimated GFR (MDRD) 47 L Glucose 109 H Calcium 10.2 Total Bilirubin 0.8 AST 31 ALT 22 Alkaline Phosphatase 81 Total Protein 7.6 Albumin 4.7 Globulin 2.9 Albumin/Globulin Ratio 1.6 Lipase 33 - Rads (name of study) CT abd pelvis Radiology: Final report received, EMP read indepedently, See rad report (LLQ abd wall hernia) PD MEDICAL DECISION MAKING - ED course Complexity details: reviewed results, re-evaluated patient, considered differential, d/w patient ED course: Patient was worked up with labs and ultimately, CT scan of the abdomen and pelvis. These did show a left lower quadrant abdominal wall hernia laterally. I went back and reevaluated the patient who is lying supine, and found that her hernia had spontaneously reduced. I discussed with the patient that she may use an abdominal binder to help support her abdominal wall to keep the hernia from becoming more inflamed and, leading to incarceration. We have discussed that patient may follow-up with surgery to talk about having hernia repair if the hernia is bothering her a lot. We have discussed the usual indications for ret urn. Departure - Departure Disposition: 01 Home, Self Care Clinical Impression: Abdominal wall hernia Condition: Stable Instructions: Hernia How Develops Follow-Up: Mick Quick MD [Provider Admit Priv/Credential] - Comments: Your CT scan shows that the lump you are feeling is caused by a hernia, which is an opening in your abdominal wall that is allowing some fat and intestine to poke through at times. The good news is that the fat and intestines are going back into the abdominal cavity where they belong easily, and there is no evidence that those tissues are stuck in the "out" position. You may follow-up with the surgeons to determine whether you would like to have this hernia repaired. As long as the herniated tissue goes easily in and out, it is generally not a problem other than the discomfort. However, if you notice that you cannot easily push the tissue back in, and especially if it is becoming discolored overlying and the tissue is rockhard, you should have it rechecked immediately. In the meantime, please avoid heavy lifting or anything else that strains the area. You may proceed with your plans for physical therapy, but just be sure to let them know about the hernia. Discharge Date/Time: 06/26/21 16:45
--- NOTE | 2021-06-26 15:24 | CT Report ---
PROCEDURE: Abdomen/Pelvis WO INDICATIONS: LLQ pain/mass TECHNIQUE: Noncontrast 5 mm thick sections acquired from the diaphragms to the symphysis. 5 mm coronal and sagi ttal reformats were then performed. For radiation dose reduction, the following was used: automated exposure control, adjustment of mA and/or kV according to patient size. COMPARISON: None. FINDINGS: Image quality: Excellent. ABDOMEN: Lung bases: Mild dependent airspace opacity which has the appearance of atelectasis. No pleural effus ion. Heart size is normal. Solid organs: Liver is prominent. There is a well-circumscribed hypodensity in the right lobe liver which has the appearance of a benign cyst. Gallbladder is not significantly distended. Small layerin g gallstones. Pancreas is normal in contours. No splenomegaly. No adrenal nodules. Kidneys are nor mal in size, without hydronephrosis or nephrolithiasis. Peritoneum and bowel: Unenhanced bowel loops demonstrate normal wall thickness and caliber. Divertic ulosis. Suture material at the cecum. Suspect prior appendectomy. No free fluid or air. Nodes and vessels: No retroperitoneal or mesenteric adenopathy by size criteria. Aorta and inferior vena cava are normal in caliber. Moderate calcified atherosclerotic plaque in the abdominal and jimena c arteries. Rim calcification at the right renal hilum is likely due to a calcified renal artery aneu rysm, (04/10). Miscellaneous: Left lower quadrant abdominal wall hernia containing the upstream colon is not distend ed. There is mild stranding within the hernia sac. A loop of distal transverse colon, (3/44). PELVIS: Genitourinary: Bladder wall thickness is normal. Uterus is absent. Miscellaneous: Bilateral fat-containing inguinal hernias. No adenopathy. Bones: No suspicious bony lesions. Exaggerated lumbar spine lordosis. Moderate DDD. Mild scoliosis. No vertebral body compression fractures. IMPRESSION: 1. Left lower quadrant abdominal wall hernia containing a portion of the distal transverse colon. No bowel obstruction. No fluid collection. 2. Diverticulosis. 3. Cholelithiasis. Reviewed by: Erasmo Gan MD on 06/26/2021 2:22 PM ELANA Approved by: Erasmo Gan MD on 06/26/2021 2:22 PM AKDEBORAH Station ID: [id number]
[2021-06-26 16:17] VITALS: BP 166/79
== END 2021-06-26 16:45 | disposition home or self-care (01) ==
LOC: ED 12:35
DX: K43.9 Ventral hernia without obstruction or gangrene (principal); I10 Essential (primary) hypertension
CPT/HCPCS: 36415; 80053; 83690; 85025; 99284

== ENCOUNTER 2021-08-08 07:58 | Day surgery (SDC) | payer MEDICARE, OTHER ==
[~2021-08-08 07:58] MED LIST: CEFAZOLIN SODIUM IN 0.9 % NACL 2 GM/100 ML BAG IV ONE
[2021-08-08] MEDS ORDERED: LACTATED RINGERS 1,000 ML IV ONE (08:27)
--- NOTE | 2021-08-08 08:51 | ANESTHESIA ---
Pre-Anesthesia VS, & Labs - Diagnosis Incisional hernia LL Quadrant - Procedure Incisional hernia repair Vital Signs: Temp Pulse Resp BP Pulse Ox 36.5 C 64 22 154/79 H 99 08/08/21 08:17 08/08/21 08:17 08/08/21 08:17 08/08/21 08:17 08/08/21 08:17 Height: 5 ft 3 in Weight (kg): 62 kg Body Mass Index: 24.2 BMI Classification: Healthy weight - NPO >8 hours - Is Patient ?: No - Lab Results Lab results reviewed: Yes Home Medications and Allergies Home Medications: Ambulatory Orders Aspirin [Aspirin EC] 81 mg PO DAILY 08/01/21 Metoprolol Succinate [Toprol Xl] 50 mg PO DAILY 08/01/21 Omeprazole [PriLOSEC] 20 mg PO DAILY 01/11/15 Tolterodine Tartrate [Detrol LA] 2 mg PO DAILY 01/11/15 Potassium Chloride 10 meq PO DAILY 08/05/20 Valsartan [Diovan] 160 mg PO DAILY 08/05/20 Levothyroxine Sodium [Synthroid] 75 mcg PO QDAC 12/25/20 Brimonidine 0.1% Ophth Drops [Alphagan P 0.1% Ophth Drops] 1 drops OPTH BID 06/01/21 Aspirin [Aspirin EC] 81 mg PO DAILY 08/01/21 Metoprolol Succinate [Toprol Xl] 50 mg PO DAILY 08/01/21 Allergies/Adverse Reactions: Allergies Allergy/AdvReac Type Severity Reaction Status Date / Time meperidine HCl * Allergy Intermediate Hives Verified 06/26/21 12:38 [From Demerol] Iodine and Iodide Containing Allergy Mild Rash Verified 06/26/21 12:38 Produc Anes History & Medical History - Anesthetic History Anesthesia Complications: reports: No previous complications Family history of Anesthesia Complications: Denies Family history of Malignant Hyperthermia: Denies - Medical History Cardiovascular: reports: Hypertension, Murmur, Other Pulmonary: reports: None Gastrointestinal: reports: GERD, Ulcerative colitis Urinary: reports: None Neuro: reports: None Musculoskeletal: reports: Osteoarthritis, Gout Endocrine/Autoimmune: reports: Other Skin: reports: Rosacea Smoking Status: Never smoker - Surgical History General: reports: 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, Colonoscopy Eyes Ears Nose Throat (EENT): reports: Cataracts Urologic: reports: Bladder surgery Gynecologic: reports: Hysterectomy Exam General: Alert, Oriented x3, Cooperative Dental: Partials Lower Mouth Openin Fingerbreadth Neck Mobility: Normal Mallampati classification: II Thyromental Distance: 4-6 cm Respiratory: Lungs clear, Normal breath sounds, No respiratory distress Cardiovascular: Regular rate Neurological: Normal speech Mental/Cognitive Status: Alert/Oriented X3, Normal for patient Cognitive Status: Within normal limits Plan Anesthesia Type: General Consent for Procedure(s) Verified and Reviewed: Yes Code Status: Attempt Resuscitation ASA classification: 2-Mild systemic disease Is this case an emergency?: No
[2021-08-08] MEDS ORDERED: ceFAZolin 1 GM VIAL IR ONE (08:54)
[2021-08-08] MEDS ORDERED: BUPIVACAINE 0.5% PF 30 ML VIAL SUBQ ONE ×2 (08:54)
[2021-08-08] MEDS ORDERED: LIDOCAINE 2%-EPI 1:100000 20 ML MDV SUBQ ONE ×2 (08:55)
[2021-08-08] MEDS ORDERED: BUPIVACAINE 0.5% PF 10 ML VIAL ONE (09:03)
[2021-08-08] MEDS ORDERED: LIDOCAINE 2%-EPI 1:100000 20 ML MDV ONE (09:03)
[2021-08-08] MEDS ORDERED: ceFAZolin 1 GM VIAL ONE (09:03)
[2021-08-08] MEDS ORDERED: ONDANSETRON 4 MG/2 ML VIAL IVP PRN ×3 (09:12→14:07)
[2021-08-08] MEDS ORDERED: ATROPINE ABBOJECT 1 MG/10 ML SYRINGE IVP PRN (09:12)
[2021-08-08] MEDS ORDERED: NALOXONE 0.4 MG/ML VIAL IVP PRN (09:12)
[2021-08-08] MEDS ORDERED: METOCLOPRAMIDE 10 MG/2 ML VIAL IVP PRN (09:12)
[2021-08-08] MEDS ORDERED: ePHEDrine 50 MG/ML VIAL IVP PRN (09:12)
[2021-08-08] MEDS ORDERED: MORPHINE 2 MG/ML CARPUJECT IVP PRN (09:12)
[2021-08-08] MEDS ORDERED: HYDROmorphone 0.5 MG/0.5 ML SYRINGE IVP PRN ×2 (09:12→14:07)
[2021-08-08] MEDS ORDERED: LACTATED RINGERS 1,000 ML IV SCH (10:00)
[2021-08-08] MEDS ORDERED: LIDOCAINE-MPF 2% 5 ML VIAL ONE (10:02)
[2021-08-08] MEDS ORDERED: ROCURONIUM 50 MG/5 ML VIAL ONE (10:02)
[2021-08-08] MEDS ORDERED: PROPOFOL 200 MG/20 ML VIAL IVP ONE (10:02)
[2021-08-08] MEDS ORDERED: fentaNYL 100 MCG/2 ML VIAL ONE (10:03)
[2021-08-08] MEDS ORDERED: ONDANSETRON 4 MG/2 ML VIAL ONE (10:27)
[2021-08-08] MEDS ORDERED: DEXAMETHASONE 4 MG/ML VIAL ONE (10:27)
[2021-08-08] MEDS ORDERED: SUGAMMADEX 200 MG/2 ML VIAL IVP ONE (10:48)
--- NOTE | 2021-08-08 10:51 | OPERATIVE REPORT ---
Operative Report - General Procedure Date: 08/08/21 Planned Procedure: Left lower quadrant incisional hernia repair Pre-Op Diagnosis: Left lower quadrant port site incisional hernia Procedure Performed: Left lower quadrant incisional hernia repair Post Op Diagnosis: 1.5 cm defect in the fascia of the left lower quadrant just medial to the l - Procedure Note Primary Surgeon: Ynes Anesthesia Provider: TITO Valencia Pathology: None Estimated Blood Loss (mL): 10 Indications: Intermittently incarcerated left lower quadrant incisional hernia Findings: 1.5 cm defect containing 1 wall of the colon and preperitoneal fat Complications: None apparent - Other Other Information/Narrative: After obtaining informed consent, the patient is brought to the operating room and placed in the supine position on the operating table. Following successful induction of general endotracheal anesthesia, appropriate padding of all bony prominences, and placement of appropriate monitors, the abdomen was prepped and draped in the standard surgical fashion. A timeout was held per scope protocol. All elements of the surgical safety checklist were followed before, during, and after the procedure. Following infiltration with local anesthetic to create a field block, an incision was created directly over the healed incision in the left lower quadrant and extended medially and laterally to approximately 3 cm. This was carried down through the skin and subcutaneous tissue. The hernia sac was identified. It contained 1 wall of the colon as well as some preperitoneal fat. The contents were eased back into the abdominal cavity. The hernia sac was then carefully dissected free from the fascia and surrounding structures. We were not able to dissected off of the subcutaneous tissue as attempting to do so seem to cause significant bleeding. We elected to repair the hernia with a C cure patch. A 4.3 cm patch was chosen, this was dipped into Ancef solution and deployed into the defect. The overlying leaflets were trimmed and then sewn to the fascia. Because this hernia was so close to the edges. Her iliac spine, we could not use a larger piece of mesh so I elected to sew the ring lengths of the mesh to the fascia medially and laterally.The wound was then checked for hemostasis, the subcutaneous tissue was closed with running Vicryl suture, Monocryl was applied to the skin. The wound was dressed with Dermabond.All sponge, needle, and instrument counts were correct at the conclusion the case the patient was let awake from anesthesia without difficulty and taken to the ostanesthesia care unit in good condition.
[2021-08-08] MEDS ORDERED: ACETAMINOPHEN 325 MG TABLET PO PRN (10:54)
[2021-08-08] MEDS ORDERED: LACTATED RINGERS 200 ML IV ONE (10:57)
[2021-08-08] MEDS: oxyCODONE 5 MG TABLET PO PRN (13:03)
[2021-08-08] MEDS ORDERED: SODIUM CHLORIDE FLUSH 0.9% 10 ML SYRINGE IVP PRN (14:07)
--- NOTE | 2021-08-08 15:45 | ANESTHESIA POST OP EVALUATION ---
Anesthesia Post Eval - Post Anesthesia Eval Vitals: Last Vital Signs Temp 36.6 C 08/08/21 15:01 Pulse 72 08/08/21 15:01 Resp 16 08/08/21 15:01 BP 144/60 H 08/08/21 15:01 Pulse Ox 99 08/08/21 15:01 CV Function Including HR & BP: Stable Pain Control: Satisfactory Nausea & Vomiting: Negative Mental Status: Baseline Respiratory Status: Airway Patent Hydration Status: Satisfactory Anesthesia Complications: None
[2021-08-08] MEDS: ACETAMINOPHEN 1,000 MG/100 ML 100 ML IV SCH ×2 (15:57→21:48)
[2021-08-08] MEDS: SODIUM CHLORIDE FLUSH 0.9% 10 ML SYRINGE IVP SCH (18:54)
[2021-08-08] MEDS: BRIMONIDINE 0.1% EACHEYE SCH (22:01)
[2021-08-09] MEDS: oxyCODONE 5 MG TABLET PO PRN ×3 (01:17→11:06)
[2021-08-09] MEDS: SODIUM CHLORIDE FLUSH 0.9% 10 ML SYRINGE IVP SCH ×2 (01:19→08:45)
[2021-08-09] MEDS: IBUPROFEN 600 MG TABLET PO PRN ×2 (03:05→11:05)
[2021-08-09] MEDS: ACETAMINOPHEN 1,000 MG/100 ML 100 ML IV SCH ×2 (04:02→08:45)
[2021-08-09] MEDS ORDERED: PANTOPRAZOLE 40 MG TABLET PO SCH (07:00)
[2021-08-09] MEDS ORDERED: LEVOTHYROXINE 75 MCG TABLET PO SCH (07:00)
[2021-08-09 07:29] VITALS: BP 133/91
[2021-08-09] MEDS ORDERED: POTASSIUM CHLORIDE 10 MEQ CAPSULE PO SCH (08:00)
[2021-08-09] MEDS: BRIMONIDINE 0.1% EACHEYE SCH (08:45)
[2021-08-09] MEDS ORDERED: METOPROLOL SUCCINATE 50 MG TABLET PO SCH (09:00)
[2021-08-09] MEDS ORDERED: allopurinoL 100 MG TABLET PO SCH (09:00)
[2021-08-09] MEDS ORDERED: ASPIRIN EC 81 MG TABLET PO SCH (09:00)
[2021-08-09] MEDS ORDERED: FUROSEMIDE 40 MG TABLET PO SCH (09:00)
[2021-08-09] MEDS ORDERED: DOCUSATE SODIUM 250 MG CAPSULE PO SCH (09:00)
[2021-08-09] MEDS ORDERED: LOSARTAN 50 MG TABLET PO SCH (09:00)
[2021-08-09] MEDS ORDERED: TOLTERODINE LA 2 MG CAPSULE PO SCH (09:00)
--- NOTE | 2021-08-09 17:27 | PROVIDER PROGRESS NOTE ---
Subjective - General Procedure Date: 08/08/21 Post Op Days: 1 Procedure Performed: Incisional hernia repair - Review of Systems Wound/Incisions: positive: Healing well General: positive: No symptoms HEENT: positive: No symptoms Pulmonary: positive: No symptoms Cardiovascular: positive: No symptoms Gastrointestinal: positive: No symptoms Genitourinary: positive: No symptoms - Other Other Information/Narrative: Yamilet reports she is feeling pretty well today. Her pain has been well controlled. She said it "kicked up a little" when she was getting dressed but otherwise she is comfortable. She is tolerated regular diet and she feels that her pain medication has been adequate. Objective - Patient Data Reviewed Vital Signs: Yes Vital Signs: Vital Signs - 24 hr 08/08/21 08/09/21 08/09/21 21:27 00:20 03:03 Temperature 36.5 C 36.8 C 36.4 C L Heart Rate [ 71 72 70 Brachial] Respiratory 18 18 18 Rate Blood Pressure 116/50 L 148/62 H 145/64 H [Right Brachial artery] O2 Saturation 98 98 100 08/09/21 07:26 Temperature 36.6 C Heart Rate [ 59 L Brachial] Respiratory 18 Rate Blood Pressure 133/91 H [Right Brachial artery] O2 Saturation 96 Weight: Weight 08/07/21 08/08/21 08/09/21 23:59 23:59 23:59 Weight (kg) 62 kg Intake & Output: Intake and Output Totals x24h 08/07/21 08/08/21 08/09/21 23:59 23:59 23:59 Intake Total 1140 1900 Output Total 10 0 Balance 1130 1900 - Physical Exam Wound/Incisions: positive: Healing well, Other (Minimal bruising) General Appearance: positive: No acute distress Eyes Bilateral: positive: Normal inspection Respiratory: positive: Chest non-tender Cardiovascular: positive: Regular rate & rhythm Abdomen: positive: Nml bowel sounds, Tenderness. negative: No distention ABX Reporting Has patient been on IV antibiotics over the past 48 hours?: No Impression/Plan - Problem List Problem List: Incisional hernia, status post repair. Discharge to home today in the care of her family on oral oxycodone, Tylenol, and Advil. She will resume her activity slowly. We will see her back in clinic in 2 weeks
== END 2021-08-09 15:05 | disposition home or self-care (01) ==
LOC: SDS 07:58 → MS2 11:30 → SDS 08-09 15:05
PROVIDERS: ATTEND Surgery
DX: K43.0 Incisional hernia with obstruction, without gangrene (principal)
CPT/HCPCS: 49561; 49568; A9270; C1781; J0131; J0690; J7120

== ENCOUNTER 2021-09-14 09:53 | Outpatient (CLI) | payer MEDICARE, OTHER ==
[2021-09-14 10:29] LABS: BASOPHILS % (AUTO) 0.9 %; EOSINOPHILS # (AUTO) 0.1 10^3/uL (0.0-0.7); EOSINOPHILS % (AUTO) 2.5 %; HCT - HEMATOCRIT 36.7 % (37.0-47.0); HGB - HEMOGLOBIN 12.2 g/dL (12.0-16.0); LYMPHOCYTES # (AUTO) 1.2 10^3/uL (1.5-3.5); MEAN CORPUSCULAR HEMOGLOBIN 34.7 pg (27.0-31.0); MEAN CORPUSCULAR HGB CONC 33.2 g/dL (32.0-36.0); MEAN CORPUSCULAR VOLUME 104.3 fL (81.0-99.0); MEAN PLATELET VOLUME 10.8 fL (7.9-10.8); MONOCYTES # (AUTO) 0.6 10^3/uL (0.0-1.0); MONOCYTES % (AUTO) 12.5 %; NEUTROPHILS # (AUTO) 2.5 10^3/uL (1.5-6.6); NEUTROPHILS % (AUTO) 56.9 %; PLT - PLATELET COUNT 153 10^3/uL (130-450); RED BLOOD COUNT 3.52 10^6/uL (4.20-5.40); RED CELL DISTRIBUTION WIDTH 14.6 % (12.0-15.0); WHITE BLOOD COUNT 4.4 x10^3/uL (4.8-10.8)
[2021-09-14 10:42] LABS: CALCIUM 9.4 mg/dL (8.5-10.3); POTASSIUM 4.3 mmol/L (3.5-5.0)
[2021-09-14 10:55] LABS: THYROID STIMULATING HORMONE 6.52 uIU/mL (0.34-5.60)
[2021-09-14 11:43] LABS: FREE T4 (FREE THYROXINE) 1.08 ng/dL (0.58-1.64)
== END 2021-09-14 09:54 | disposition home or self-care (01) ==
LOC: LAB 09:53
PROVIDERS: ATTEND Family Medicine
DX: I10 Essential (primary) hypertension (principal); K63.1 Perforation of intestine (nontraumatic); D50.9 Iron deficiency anemia, unspecified; M10.9 Gout, unspecified; K21.9 Gastro-esophageal reflux disease without esophagitis; E03.9 Hypothyroidism, unspecified; E05.00 Thyrotoxicosis with diffuse goiter without thyrotoxic crisis or storm
CPT/HCPCS: 36415; 80048; 84439; 84443; 84550; 85025

== ENCOUNTER 2022-09-22 09:57 | Outpatient (CLI) | payer MEDICARE, OTHER ==
[2022-09-22 10:26] LABS: CALCIUM 9.5 mg/dL (8.5-10.3); CREATININE 1.1 mg/dL (0.4-1.0); POTASSIUM 4.1 mmol/L (3.5-5.0); URIC ACID 4.6 mg/dL (2.6-7.2)
== END 2022-09-22 09:58 | disposition home or self-care (01) ==
LOC: LAB 09:57
PROVIDERS: ATTEND Family Medicine
DX: E79.0 Hyperuricemia without signs of inflammatory arthritis and tophaceous disease (principal); R60.0 Localized edema
CPT/HCPCS: 36415; 80048; 84550

== ENCOUNTER 2022-11-04 08:26 | Emergency (ER) | payer MEDICARE, OTHER ==
[2022-11-04] MEDS ORDERED: LIDOCAINE PATCH 5% TOP STA (09:40)
--- NOTE | 2022-11-04 09:42 | ED Physician Documentation ---
History of Present Illness - Stated complaint Stated Complaint: BACK PX - Chief complaint Chief Complaint: Back Pain - History obtained from History obtained from: Patient - Additonal information Additional information: Patient is an 87-year-old female presenting for evaluation of right-sided chest pain that started around 3:00 this morning and woke her up from her sleep. It feels like a sharp aching and is worse with certain movements. She denies any known trauma or injury. She recently has had a cold and finished a course of doxycycline 1 week ago. She denies currently having cold-like symptoms or a cough. She denies known fever. Pain does not radiate.She denies any known trauma.She denies difficulty breathing, abdominal pain, vomiting, dysuria. She does not take a blood thinner. Review of Systems Constitutional: denies: Fever Cardiac: reports: Chest pain / pressure Respiratory: denies: Dyspnea GI: denies: Abdominal Pain, Vomiting : denies: Dysuria Musculoskeletal: denies: Back pain, Extremity swelling PD PAST MEDICAL HISTORY - Past Medical History Cardiovascular: Hypertension, Murmur, Other Respiratory: None Neuro: None Endocrine/Autoimmune: Other GI: GERD, Ulcerative colitis : None HEENT: Chronic vision loss, Chronic hearing loss Psych: None Musculoskeletal: Osteoarthritis, Gout Derm: Rosacea - Past Surgical History Past Surgical History: Yes General: 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, Colonoscopy /PALLIATIVE MEDICINE PHYSICIAN: Hysterectomy HEENT: Cataracts - Present Medications Home Medications: Ambulatory Orders Medication Instructions Recorded Confirmed Omeprazole [PriLOSEC] 20 mg PO DAILY 01/11/15 10/25/22 Tolterodine Tartrate [Detrol LA] 2 mg PO DAILY 01/11/15 10/25/22 Potassium Chloride 10 meq PO DAILY 08/05/20 10/25/22 Valsartan [Diovan] 160 mg PO DAILY 08/05/20 10/25/22 Levothyroxine Sodium [Synthroid] 75 mcg PO QDAC 12/25/20 10/25/22 Furosemide [Lasix] 40 mg PO DAILY tablet 12/29/20 10/25/22 allopurinoL [Zyloprim] 300 mg PO DAILY tablet 12/29/20 10/25/22 Brimonidine 0.1% Ophth Drops 1 drops OPTH BID 06/01/21 10/25/22 [Alphagan P 0.1% Ophth Drops] Aspirin [Aspirin EC] 81 mg PO DAILY 08/01/21 10/25/22 Metoprolol Succinate [Toprol Xl] 50 mg PO DAILY 08/01/21 10/25/22 Docusate Sodium 100Mg Capsule 200 mg PO DAILY #10 cap 08/08/21 10/25/22 [Colace 100Mg Capsule] Ondansetron Odt [Zofran Odt] 4 mg TL Q6H PRN #10 tablet 08/08/21 10/25/22 oxyCODONE [Roxicodone] 5 mg PO Q4-6H PRN #10 tablet 08/08/21 10/25/22 Rivaroxaban [Xarelto] 15 mg PO BID 21 Days #42 tablet 11/04/22 - Allergies Allergies/Adverse Reactions: Allergies Allergy/AdvReac Type Severity Reaction Status Date / Time meperidine HCl * Allergy Intermediate Hives Verified 06/26/21 12:38 [From Demerol] Iodine and Iodide Containing Allergy Mild Rash Verified 06/26/21 12:38 Produc - Social History Does the pt smoke?: No Smoking Status: Never smoker Does the pt drink ETOH?: Yes Does the pt have substance abuse?: No - Immunizations Immunizations are current?: Yes PD ED PE NORMAL - General General: Alert and oriented X 3, No acute distress, Well developed/nourished - HEENT HEENT: Atraumatic - Neck Neck: Supple, no meningeal sign - Cardiac Cardiac: RRR, No murmur, Other (Right-sided chest wall tenderness to palpation, no rash, no crepitus, no bruising) - Respiratory Respiratory: No respiratory distress, Clear bilaterally - Abdomen Abdomen: Normal bowel sounds, Soft, Non tender, Non distended - Back Back: No CVA TTP, No spinal TTP - Derm Derm: Warm and dry, No rash - Extremities Extremities: No edema, No calf tenderness / cord Results - Vitals Vitals: Vital Signs - 24 hr 11/04/22 11/04/22 11/04/22 08:54 10:57 11:00 Temperature 37.2 C Heart Rate 83 68 68 Respiratory 18 19 18 Rate Blood Pressure 145/60 H 150/78 H 144/57 H O2 Saturation 100 94 100 11/04/22 11/04/22 11/04/22 11:30 12:30 13:00 Temperature 36.8 C Heart Rate 69 71 77 Respiratory 17 21 16 Rate Blood Pressure 135/69 H 137/67 H 166/80 H O2 Saturation 99 97 99 11/04/22 14:00 Temperature Heart Rate 72 Respiratory 16 Rate Blood Pressure 137/67 H O2 Saturation 96 Oxygen O2 Source Room air - EKG (time done) 1004 Rate: Rate (enter#) (65) Rhythm: NSR Ischemia: No: ST elevation c/w ischemia - Labs Labs: Laboratory Tests 11/04/22 11/04/22 11/04/22 09:51 09:51 09:51 WBC 5.2 RBC 3.64 L Hgb 12.2 Hct 37.8 MCV 103.8 H MCH 33.5 H MCHC 32.3 RDW 13.8 Plt Count 115 L MPV 10.6 Neut # (Auto) 3.2 Lymph # (Auto) 1.1 L Dickens # (Auto) 0.8 Eos # (Auto) 0.1 Baso # (Auto) 0.0 Absolute Nucleated RBC 0.00 Nucleated RBC % 0.0 D-Dimer 705.8 H Sodium 142 Potassium 3.7 Chloride 106 Carbon Dioxide 26 Anion Gap 10.0 BUN 24 H Creatinine 1.0 Estimated GFR (MDRD) 52 L Glucose 109 H Calcium 9.4 Total Bilirubin 1.1 H AST 28 ALT 20 Alkaline Phosphatase 117 Troponin I High Sens Total Protein 7.3 Albumin 3.9 Globulin 3.4 Albumin/Globulin Ratio 1.1 Lipase 30 11/04/22 09:51 WBC RBC Hgb Hct MCV MCH MCHC RDW Plt Count MPV Neut # (Auto) Lymph # (Auto) Dickens # (Auto) Eos # (Auto) Baso # (Auto) Absolute Nucleated RBC Nucleated RBC % D-Dimer Sodium Potassium Chloride Carbon Dioxide Anion Gap BUN Creatinine Estimated GFR (MDRD) Glucose Calcium Total Bilirubin AST ALT Alkaline Phosphatase Troponin I High Sens 11.7 Total Protein Albumin Globulin Albumin/Globulin Ratio Lipase PD Medical Decision Making - ED course Complexity details: reviewed results, re-evaluated patient, d/w patient ED course: 1240 - D/W Dr. Colin. Discussed PESI score which is in the intermediate category based on age and h/o CHF. Given stable vital signs would not do much more than observing the patient, giving a dose of Lovenox and starting her on a DOAC and likely discharge home in the morning. 1315 - D/W Dr. Gomez Gallegos (Heme/Onc). - Patient sees Dr. Weston for history of iron deficiency anemia and has prior history of GI bleeds. I did review recent note from Dr. Weston with on-call dental biller as well as today's findings of bilateral pulmonary embolism. He agrees that patient should be anticoagulated Even despite her history of GI bleeds in past. Patient presenting for evaluation of pleuritic right-sided chest pain. Her vital signs here are stable with no tachycardia or hypoxia. Her EKG is reviewed and does not show signs of right heart strain. Her labs are reviewed and significant for an elevated D-dimer even with age adjustment. Therefore I did obtain a CT angio to evaluate for pulmonary embolism given her description of pleuritic pain without other clear cause.Patient CT scan is positive for bilateral pulmonary embolism. Her troponin is negative. She does not appear to have any cardiac strain from her PE and her vitals here are stable. Although she is an intermediate risk per the Pasi score, there is not much alternative intervention to be offered as inpatient. There is no echo services over the weekend. She is not a candidate for directed thrombolytics. I did discuss her diagnosis as well as recommendations for anticoagulation with a DOAC. I discussed the risks and benefits of these medications and patient is comfortable with proceeding with Xarelto.Patient denies that she is a fall risk. She does have a history of GI bleeds but this is several years ago. Patient has not having much pain here. She is comfortable plan for discharge and aware is of the importance of close follow-up with Dr. Hadley and Dr. Weston. Departure - Departure Disposition: 01 Home, Self Care Clinical Impression: Bilateral pulmonary embolism Condition: Stable Instructions: Embolism Pulmonary Dc Follow-Up: Davin Pineda MD [Primary Care Provider] - MARY WESTON MD [Provider Admit Priv/Credential] - Prescriptions: Rivaroxaban [Xarelto] 15 mg PO BID 21 Days #42 tablet Comments: You were found to have bilateral pulmonary embolism which are blood clots in your lungs. These are potentially life-threatening and as we discussed you should be started on a blood thinner. However blood thinners can also cause complications as we discussed.I am starting you on a medication called Xarelto which is one of the blood thinners.I have sent this prescription to [facility] in [place].I have sent a 3-week prescription. I would recommend he call Dr. Hadley's office on Sunday as well as Dr. Weston for close follow-up. You will need to continue this medication past 3 weeks and the next prescription should be obtained from your PCP or dental biller. If it anytime you have any concernin g symptoms such as increased shortness of breath or pain, blood in your stools or urine, or any concerns please return to the emergency department. Discharge Date/Time: 11/04/22 14:19
[2022-11-04 10:00] LABS: BASOPHILS % (AUTO) 0.6 %; EOSINOPHILS # (AUTO) 0.1 10^3/uL (0.0-0.7); EOSINOPHILS % (AUTO) 1.7 %; HCT - HEMATOCRIT 37.8 % (37.0-47.0); HGB - HEMOGLOBIN 12.2 g/dL (12.0-16.0); LYMPHOCYTES # (AUTO) 1.1 10^3/uL (1.5-3.5); LYMPHOCYTES % (AUTO) 21.2 %; MEAN CORPUSCULAR HEMOGLOBIN 33.5 pg (27.0-31.0); MEAN CORPUSCULAR HGB CONC 32.3 g/dL (32.0-36.0); MEAN CORPUSCULAR VOLUME 103.8 fL (81.0-99.0); MEAN PLATELET VOLUME 10.6 fL (7.9-10.8); MONOCYTES # (AUTO) 0.8 10^3/uL (0.0-1.0); MONOCYTES % (AUTO) 15.1 %; NEUTROPHILS # (AUTO) 3.2 10^3/uL (1.5-6.6); PLT - PLATELET COUNT 115 10^3/uL (130-450); RED BLOOD COUNT 3.64 10^6/uL (4.20-5.40); RED CELL DISTRIBUTION WIDTH 13.8 % (12.0-15.0); WHITE BLOOD COUNT 5.2 x10^3/uL (4.8-10.8)
--- NOTE | 2022-11-04 10:06 | XRAY Report ---
PROCEDURE: Chest 1 View X-Ray INDICATIONS: R sided CP TECHNIQUE: One view of the chest was acquired. COMPARISON: 12/26/2020 FINDINGS: Surgical changes and devices: None. Lungs and pleura: Minor chronic atelectatic change at the lateral left lung base. Lung quick are ot herwise clear. No pleural effusion or pneumothorax. Chronic right hemidiaphragm eventration. Mediastinum: Mediastinal contours appear normal. Heart size is normal. Bones and chest wall: No suspicious bony lesions. Overlying soft tissues appear unremarkable. IMPRESSION: 1. No acute cardiopulmonary disease. 2. Left lower lung atelectasis or scarring. Reviewed by: Nay Gu MD on 11/04/2022 9:05 AM [facility] Approved by: Nay Gu MD on 11/04/2022 9:05 AM [facility] Station ID: [id number]
[2022-11-04 10:10] LABS: ALBUMIN 3.9 g/dL (3.2-5.5); BILIRUBIN,TOTAL 1.1 mg/dL (0.2-1.0); CALCIUM 9.4 mg/dL (8.5-10.3); POTASSIUM 3.7 mmol/L (3.5-5.0); TOTAL PROTEIN 7.3 g/dL (6.7-8.2)
[2022-11-04 10:11] LABS: ALBUMIN/GLOBULIN RATIO 1.1 (1.0-2.2)
[2022-11-04] MEDS ORDERED: iohexoL-300 100 ML VIAL ONE (11:29)
[2022-11-04] MEDS ORDERED: iohexoL-300 100 ML VIAL IVP ONE (12:02)
[2022-11-04 12:36] VITALS: BP 137/67
--- NOTE | 2022-11-04 12:36 | CT Report ---
PROCEDURE: ANGIO CHEST W/WO INDICATIONS: R sided CP/ eval for PE CONTRAST: 180ml omni 300 TECHNIQUE: After the administration of intravenous contrast, 2 mm axial images were acquired from the pulmonary apices to the posterior costophrenic angles during the arterial phase. In addition, 1 mm lung kernel and 5 mm soft tissue kernel reconstructions were performed. 3-dimensional coronal oblique maximum int ensity projection (MIP) reformats, 8 mm axial MIP, and 5 mm coronal and sagittal MPR reformats were t hen performed through the thorax. For radiation dose reduction, the following was used: automated exp osure control, adjustment of mA and/or kV according to patient size. COMPARISON: None. Correlation made to chest x-ray performed the same day correlation made to CT abdo men pelvis 06/26/2021. FINDINGS: Image quality: Excellent. Pulmonary arteries: There is mild diffuse enlargement of the pulmonary outflow tract measuring up to 4.0 cm. The right main pulmonary artery measures 3 cm and the left is also 3 cm. There are segmental acute pulmonary emboli involving right midapical segment, anterior right upper lobe, right anterior a nd lateral segmental branches proximally and subsegmental right posterior basal pulmonary artery. Lef t-sided emboli seen include superior segment left lower lobe, posterior lingular branch, and is nonoc clusive thrombus extending into the anterior lower lobe basal segment. Lungs and pleura: There is minor consolidative change at the costophrenic sulci, right greater than left. No significant pleural effusion. Central and peripheral airways are patent. Mediastinum: The heart is slightly enlarged. There is no intraventricular septal bowing. No pericard ial effusion.No mediastinal or hilar adenopathy. Thoracic aorta is normal in caliber and enhancement . Esophagus is normal in caliber, without hiatal hernia. Bones and chest wall: No suspicious bony lesions. Degenerative changes in the thoracic spine. Ribs a nd thoracic spine appear intact throughout. No axillary or supraclavicular adenopathy. The thyroid gland is not seen. 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 Small lateral right lobe liver cyst. Visualized upper abdominal solid organs appear otherwise normal in the early arterial phase of enhancement. IMPRESSION: 1. Bilateral pulmonary emboli. Overall clot burden is estimated to be [id number], more signific ant in the right lung. 2. There is pulmonary artery enlargement, but no intraventricular septal bowing to suggest acute righ t heart strain. Correlate with EKG findings. 3. Discussed with Dr. Hilario in the emergency room at [address] [place] standard time. . Reviewed by: Nay Gu MD on 11/04/2022 11:35 AM [facility] Approved by: Nay Gu MD on 11/04/2022 11:35 AM [facility] Station ID: [id number]
[2022-11-04] MEDS ORDERED: ENOXAPARIN 60 MG/0.6 ML SYRINGE SUBQ STA (13:45)
== END 2022-11-04 14:19 | disposition home or self-care (01) ==
LOC: ED 08:26
DX: I26.99 Other pulmonary embolism without acute cor pulmonale (principal); I50.9 Heart failure, unspecified
CPT/HCPCS: 36415; 71045; 71275; 80053; 83690; 84484; 85025; 85379; 93005; 96372; 99284; 99285; A9270; J1650; Q9967

== ENCOUNTER 2022-11-08 21:12 | Emergency (ER) | payer MEDICARE, OTHER ==
--- NOTE | 2022-11-08 21:30 | ED Physician Documentation ---
History of Present Illness - Stated complaint Stated Complaint: BLOOD IN STOOL - Chief complaint Chief Complaint: Abd Pain - History obtained from History obtained from: Patient - Additonal information Additional information: 87-year-old woman who a few years ago had bleeding polyps and subsequently had a perforation with peritonitis and primary repair. She was seen by my partner 4 days ago and diagnosed with bilateral subsegmental pulmonary emboli and started on Xarelto after consultation with heme-onc. Tonight she had very dark and bloody bowel movements. She feels fine. There is no associated abdominal pain, shortness of breath, weakness. 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 HEENT: Cataracts - Present Medications Home Medications: Ambulatory Orders Medication Instructions Recorded Confirmed Omeprazole [PriLOSEC] 20 mg PO DAILY 01/11/15 11/08/22 Tolterodine Tartrate [Detrol LA] 2 mg PO DAILY 01/11/15 11/08/22 Potassium Chloride 10 meq PO DAILY 08/05/20 11/08/22 Valsartan [Diovan] 160 mg PO DAILY 08/05/20 11/08/22 Levothyroxine Sodium [Synthroid] 75 mcg PO QDAC 12/25/20 11/08/22 Furosemide [Lasix] 40 mg PO DAILY tablet 12/29/20 11/08/22 allopurinoL [Zyloprim] 300 mg PO DAILY tablet 12/29/20 11/08/22 Brimonidine 0.1% Ophth Drops 1 drops OPTH BID 06/01/21 11/08/22 [Alphagan P 0.1% Ophth Drops] Aspirin [Aspirin EC] 81 mg PO DAILY 08/01/21 11/08/22 Metoprolol Succinate [Toprol Xl] 50 mg PO DAILY 08/01/21 11/08/22 Docusate Sodium 100Mg Capsule 200 mg PO DAILY #10 cap 08/08/21 11/08/22 [Colace 100Mg Capsule] Ondansetron Odt [Zofran Odt] 4 mg TL Q6H PRN #10 tablet 08/08/21 11/08/22 oxyCODONE [Roxicodone] 5 mg PO Q4-6H PRN #10 tablet 08/08/21 11/08/22 Rivaroxaban [Xarelto] 15 mg PO BID 21 Days #42 tablet 11/04/22 11/08/22 - Allergies Allergies/Adverse Reactions: Allergies Allergy/AdvReac Type Severity Reaction Status Date / Time meperidine HCl * Allergy Intermediate Hives Verified 11/08/22 21:16 [From Demerol] Iodine and Iodide Containing Allergy Mild Rash Verified 11/08/22 21:16 Produc - Social History Does the pt smoke?: No Smoking Status: Never smoker Does the pt drink ETOH?: Yes Does the pt have substance abuse?: No - Immunizations Immunizations are current?: Yes PD ED PE NORMAL - Vitals Vital signs reviewed: Yes - General General: Alert and oriented X 3, No acute distress - Neck Neck: Supple, no meningeal sign, No bony TTP - Cardiac Cardiac: RRR, No murmur - Respiratory Respiratory: No respiratory distress, Clear bilaterally - Abdomen Abdomen: Normal bowel sounds, Soft, Non tender - Back Back: No CVA TTP, No spinal TTP - Derm Derm: Normal color, Warm and dry - Extremities Extremities: No edema, No calf tenderness / cord - Neuro Neuro: Alert and oriented X 3, Normal speech Results - Vitals Vitals: Vital Signs - 24 hr 11/08/22 11/08/22 11/08/22 21:16 21:38 23:13 Temperature 36.5 C Heart Rate 80 77 73 Respiratory 16 13 14 Rate Blood Pressure 150/80 H 139/60 H 106/87 H O2 Saturation 100 95 96 11/09/22 01:27 Temperature Heart Rate Respiratory 18 Rate Blood Pressure 123/64 O2 Saturation 96 Oxygen O2 Source Room air - Labs Labs: Microbiology 11/09/22 00:04 Occult Blood - Final Stool Laboratory Tests 11/08/22 11/08/22 11/08/22 21:31 21:31 21:31 WBC 4.9 RBC 3.43 L Hgb 11.4 L Hct 35.3 L MCV 102.9 H MCH 33.2 H MCHC 32.3 RDW 13.3 Plt Count 179 MPV 10.7 Neut # (Auto) 2.5 Lymph # (Auto) 1.5 [place] # (Auto) 0.7 Eos # (Auto) 0.1 Baso # (Auto) 0.0 Absolute Nucleated RBC 0.00 Nucleated RBC % 0.0 Sodium 137 Potassium 3.7 Chloride 101 Carbon Dioxide 25 Anion Gap 11.0 BUN 28 H Creatinine 1.0 Estimated GFR (MDRD) 52 L Glucose 125 H Calcium 9.2 Total Bilirubin 0.5 AST 32 ALT 22 Alkaline Phosphatase 99 Total Protein 6.9 Albumin 3.6 Globulin 3.3 Albumin/Globulin Ratio 1.1 Lipase 37 SARS-CoV-2 (PCR) Blood Type O POSITIVE Antibody Screen NEGATIVE 11/08/22 22:22 WBC RBC Hgb Hct MCV MCH MCHC RDW Plt Count MPV Neut # (Auto) Lymph # (Auto) [place] # (Auto) Eos # (Auto) Baso # (Auto) Absolute Nucleated RBC Nucleated RBC % Sodium Potassium Chloride Carbon Dioxide Anion Gap BUN Creatinine Estimated GFR (MDRD) Glucose Calcium Total Bilirubin AST ALT Alkaline Phosphatase Total Protein Albumin Globulin Albumin/Globulin Ratio Lipase SARS-CoV-2 (PCR) NOT DETECTED Blood Type Antibody Screen PD Medical Decision Making - ED course ED course: 87-year-old woman with history of lower GI bleeding with colonic perforation few years ago now is about 4 days out from a diagnosis of small to moderate PEs and was put on anticoagulation with Xarelto and had a bloody bowel movement tonight. Her H&H is dropped about a gram from prior. Specifically tonight her hemoglobin is 11.4, when she was diagnosed with a PE was 12.2. CMP reviewed and unremarkable, elevated BUN unchanged from prior. Given that she is a complicated patient that is "between a rock and a hard place." Call was placed to [place] for heme-onc consultation with the query specifically that we could observe her here with serial H&H's versus does she need to be transferred for consideration for an IVC filter? Brynn spoke with Gomez Oakes, on-call for the group. He recommends transfer to a facility capable of GI consultation feels that is more important and IVC filter, but a facility capable of both would be ideal. He does recommend continuation of anticoagulation pending transfer given that she is very stable. I discussed this with patient, given current region wide hospital capacity issues I discussed with her that it would likely be a prolonged period of time before she is transferred, but she is placed on multiple wait lists for the above specialties. I wrote for her regular meds. Care to Dr Ch at shift [facility] waiting call back. Departure - Departure Disposition: 02 Transfer Acute Care Hosp Clinical Impression: Adequate anticoagulation on anticoagulant therapy Gastrointestinal bleeding Qualifiers: GI bleed type/associated pathology: unspecified gastrointestinal hemorrhage type Qualified Code(s): K92.2 - Gastrointestinal hemorrhage, unspecified Pulmonary emboli Qualifiers: Pulmonary embolism type: multiple subsegmental (without acute cor pulmonale) Qualified Code(s): I26.94 - Multiple subsegmental pulmonary emboli without acute cor pulmonale Condition: Serious Discharge Date/Time: 11/09/22 02:02
[2022-11-08 21:41] LABS: BASOPHILS % (AUTO) 0.8 %; EOSINOPHILS # (AUTO) 0.1 10^3/uL (0.0-0.7); EOSINOPHILS % (AUTO) 2.5 %; HCT - HEMATOCRIT 35.3 % (37.0-47.0); HGB - HEMOGLOBIN 11.4 g/dL (12.0-16.0); LYMPHOCYTES # (AUTO) 1.5 10^3/uL (1.5-3.5); MEAN CORPUSCULAR HEMOGLOBIN 33.2 pg (27.0-31.0); MEAN CORPUSCULAR HGB CONC 32.3 g/dL (32.0-36.0); MEAN CORPUSCULAR VOLUME 102.9 fL (81.0-99.0); MEAN PLATELET VOLUME 10.7 fL (7.9-10.8); MONOCYTES # (AUTO) 0.7 10^3/uL (0.0-1.0); MONOCYTES % (AUTO) 14.6 %; NEUTROPHILS # (AUTO) 2.5 10^3/uL (1.5-6.6); NEUTROPHILS % (AUTO) 51.9 %; PLT - PLATELET COUNT 179 10^3/uL (130-450); RED BLOOD COUNT 3.43 10^6/uL (4.20-5.40); RED CELL DISTRIBUTION WIDTH 13.3 % (12.0-15.0); WHITE BLOOD COUNT 4.9 x10^3/uL (4.8-10.8)
[2022-11-08 21:55] LABS: ALBUMIN 3.6 g/dL (3.2-5.5); ALBUMIN/GLOBULIN RATIO 1.1 (1.0-2.2); BILIRUBIN,TOTAL 0.5 mg/dL (0.2-1.0); CALCIUM 9.2 mg/dL (8.5-10.3); POTASSIUM 3.7 mmol/L (3.5-5.0); TOTAL PROTEIN 6.9 g/dL (6.7-8.2)
[2022-11-08] MEDS ORDERED: PANTOPRAZOLE 40 MG VIAL IVP STA (22:11)
[2022-11-08] MEDS ORDERED: ONDANSETRON 4 MG/2 ML VIAL IVP PRN (22:17)
[2022-11-08] MEDS ORDERED: ACETAMINOPHEN 500 MG TABLET PO PRN (22:17)
[2022-11-09 01:29] VITALS: BP 123/64
--- NOTE | 2022-11-09 01:32 | ED Physician Documentation ---
ED Addendum - Addendum Addendum: 11/09/22 01:27 I received signout from Dr. Fletcher at end of his shift; patient is pending disposition to an appropriate facility. Please see Dr. Fletcher's history and physical for complete such documentation. I heard from Dr. Jonathan mclain, geodesist at [facility]. She says patient would be appropriate for transfer to [facility], service of hospitalist, but she has the following questions: Does patient have a pacemaker (if so, would need to bring documentation regarding specific kind of pacemaker and care for that pacemaker), since there does not appear to be a guaiac test performed, Dr. Mahtew request that I perform 1 (if guaiac positive, can contact the hospitalist at [facility] for admission; if guaiac negative, she requests call back.) Dr. Mathew also wants me to ask patient if she has been taking Pepto-Bismol. I performed a rectal exam, no visible stool on the glove, but the sample was sent and lab returns a positive guaiac result. The patient tells me she does not have a pacemaker. The patient tells me she has not been using Pepto-Bismol. The patient tells me that the blood had been dark black, although, when she wiped with toilet paper, it was a dark red/maroon color. I then spoke with the hospitalist at [facility] (Dr. Neely). Dr. Neely accepts patient for transfer to [facility].
[2022-11-09] MEDS ORDERED: LEVOTHYROXINE 75 MCG TABLET PO SCH (07:00)
[2022-11-09] MEDS ORDERED: PANTOPRAZOLE 40 MG TABLET PO SCH (07:00)
[2022-11-09] MEDS ORDERED: MULTIVITAMIN TABLET PO SCH (08:00)
[2022-11-09] MEDS ORDERED: allopurinoL 100 MG TABLET PO SCH (09:00)
[2022-11-09] MEDS ORDERED: TOLTERODINE LA 2 MG CAPSULE PO SCH (09:00)
[2022-11-09] MEDS ORDERED: ENOXAPARIN 60 MG/0.6 ML SYRINGE SUBQ SCH (09:00)
[2022-11-09] MEDS ORDERED: lisinopriL 5 MG TABLET PO SCH (09:00)
[2022-11-09] MEDS ORDERED: FUROSEMIDE 20 MG TABLET PO SCH (09:00)
[2022-11-09] MEDS ORDERED: METOPROLOL SUCCINATE 50 MG TABLET PO SCH (09:00)
[2022-11-09] MEDS ORDERED: POTASSIUM CHLORIDE 20 MEQ TABLET PO SCH (09:00)
== END 2022-11-09 02:02 | disposition short-term general hospital (02) ==
LOC: ED 21:12
DX: K92.2 Gastrointestinal hemorrhage, unspecified (principal); I26.94 Multiple subsegmental thrombotic pulmonary emboli without acute cor pulmonale; Z79.01 Long term (current) use of anticoagulants; Z20.822 Contact with and (suspected) exposure to COVID-19
CPT/HCPCS: 36415; 80048; 80053; 82272; 83690; 85025; 86850; 86900; 86901; 96374; 99285

== ENCOUNTER 2022-11-28 09:55 | Outpatient (CLI) | payer MEDICARE, OTHER ==
--- NOTE | 2022-11-29 11:37 | Mammography Report ---
BILATERAL DIGITAL SCREENING MAMMOGRAM 3D/2D: 11/28/2022 CLINICAL: Routine screening. Comparison is made to exams dated: 01/22/2017 mammogram, 01/13/2015 mammogram, 02/01/2013 mammogram, 04/14 mammogram, and 05/04/2010 mammogram - [facility]. Both breasts are almost entirely fatty (category a/<25% glandular tissue). No significant masses, calcifications, or other findings are seen in either breast. There has been no significant interval change. IMPRESSION: NEGATIVE There is no mammographic evidence of malignancy. A 1 year screening mammogram is recommended. This exam was interpreted at Station ID: [id number]. NOTE: For mammograms, a report in lay terms will be sent to the patient. Approximately 15% of breast malignancies will not be visualized mammographically. In the management of a palpable breast mass, a negative mammogram must not discourage biopsy of a clinically suspicious lesion. Electronically Signed By: Ritchie Mercer M.D., jr/aric:11/28/2022 13:09:00 ACR BI-RADS Category 1: Negative 3341F PARENCHYMAL PATTERN: (F) - The breast(s) demonstrate(s) diffuse fatty replacement. BI-RADS CATEGORY: (1) - 1 RECOMMENDATION: (ANNUAL) - Recommend routine annual screening mammography. [id number] 1 year screening LATERALITY: (B)
== END 2022-11-28 09:56 | disposition home or self-care (01) ==
LOC: DI 09:55
PROVIDERS: ATTEND Internal Medicine
DX: Z12.31 Encounter for screening mammogram for malignant neoplasm of breast (principal)

== ENCOUNTER 2023-01-03 17:56 | Inpatient (IN) | payer MEDICARE, OTHER ==
--- NOTE | 2023-01-03 18:12 | ED Physician Documentation ---
PD HPI CHEST PAIN - Stated complaint Stated Complaint: CHEST PX - Chief complaint Chief Complaint: Cardiac - History obtained from History obtained from: Patient, Family - History of Present Illness Timing - onset: How many hours ago (2) Timing - onset during: Rest Timing - duration: Hours (2) Pain level max: 6 Pain level now: 5 Quality: Other (burning, sharp) Associated symptoms: Nausea. No: Diaphoresis, Feeling faint / dizzy, General Weakness, Palpitations - Additional information Additional information: Patient is an 87-year-old female who complains of epigastric/right upper quadrant abdominal pain that started about 2 hours ago. She describes it as a sharp burning pressure pain. Nothing seems to make it better. Worse with movement and palpation. She states it feels like it is hard to take a deep breath because it hurts. She does have a history of pulmonary embolism and is on Xarelto. She denies any heart attacks in the past. Does not use oxygen at home. No cough. No congestion. No vomiting. Some nausea. No diarrhea or constipation. The pain starts in the right upper quadrant/epigastric area and radiates up behind her sternum. She states it feels similar to her known history of GERD. 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 HEENT: Cataracts - Present Medications Home Medications: Ambulatory Orders Medication Instructions Recorded Confirmed Omeprazole [PriLOSEC] 20 mg PO DAILY 01/11/15 11/29/22 Tolterodine Tartrate [Detrol LA] 2 mg PO DAILY 01/11/15 11/29/22 Potassium Chloride 10 meq PO DAILY 08/05/20 11/29/22 Valsartan [Diovan] 160 mg PO DAILY 08/05/20 11/29/22 Levothyroxine Sodium [Synthroid] 75 mcg PO QDAC 12/25/20 11/29/22 Furosemide [Lasix] 40 mg PO DAILY tablet 12/29/20 11/29/22 allopurinoL [Zyloprim] 300 mg PO DAILY tablet 12/29/20 11/29/22 Brimonidine 0.1% Ophth Drops 1 drops OPTH BID 06/01/21 11/29/22 [Alphagan P 0.1% Ophth Drops] Aspirin [Aspirin EC] 81 mg PO DAILY 08/01/21 11/29/22 Metoprolol Succinate [Toprol Xl] 50 mg PO DAILY 08/01/21 11/29/22 Docusate Sodium 100Mg Capsule 200 mg PO DAILY #10 cap 08/08/21 11/29/22 [Colace 100Mg Capsule] Ondansetron Odt [Zofran Odt] 4 mg TL Q6H PRN #10 tablet 08/08/21 11/29/22 oxyCODONE [Roxicodone] 5 mg PO Q4-6H PRN #10 tablet 08/08/21 11/29/22 Rivaroxaban [Xarelto] 15 mg PO BID 21 Days #42 tablet 11/04/22 11/29/22 - Allergies Allergies/Adverse Reactions: Allergies Allergy/AdvReac Type Severity Reaction Status Date / Time meperidine HCl * Allergy Intermediate Hives Verified 11/08/22 21:16 [From Demerol] Iodine and Iodide Containing Allergy Mild Rash Verified 11/08/22 21:16 Produc - Social History Does the pt smoke?: No Smoking Status: Never smoker Does the pt drink ETOH?: Yes Does the pt have substance abuse?: No - Immunizations Immunizations are current?: Yes Results - Vitals Vitals: Vital Signs - 24 hr 01/03/23 01/03/23 01/03/23 18:00 18:30 19:00 Temperature 36.8 C Heart Rate 54 L 54 L 52 L Respiratory 18 16 13 Rate Blood Pressure 209/76 H 172/72 H 180/72 H O2 Saturation 98 100 100 01/03/23 01/03/23 01/03/23 20:08 20:30 21:00 Temperature Heart Rate 55 L 79 64 Respiratory 20 16 16 Rate Blood Pressure 179/76 H 166/99 H 178/71 H O2 Saturation 100 100 98 01/03/23 21:30 Temperature Heart Rate 68 Respiratory 16 Rate Blood Pressure 178/71 H O2 Saturation 99 Oxygen O2 Source Room air - EKG (time done) 1803 EKG releavant findings:: EKG personally interpreted by author of this note. Relevant findings are: Rate: Rate (enter#) (59) Rhythm: NSR [place]: Normal Intervals: Normal [place] QRS: Normal Ischemia: Normal ST segments - Labs Labs: Laboratory Tests 01/03/23 01/03/23 01/03/23 18:14 18:14 18:14 WBC 5.0 RBC 3.78 L Hgb 12.3 Hct 38.4 MCV 101.6 H MCH 32.5 H MCHC 32.0 RDW 12.3 Plt Count 194 MPV 10.9 H Neut # (Auto) 2.4 Lymph # (Auto) 1.8 [place] # (Auto) 0.6 Eos # (Auto) 0.1 Baso # (Auto) 0.0 Absolute Nucleated RBC 0.00 Nucleated RBC % 0.0 Sodium 140 Potassium 3.6 Chloride 104 Carbon Dioxide 28 Anion Gap 8.0 BUN 33 H Creatinine 1.0 Estimated GFR (MDRD) 52 L Glucose 103 H Calcium 9.4 Total Bilirubin 0.5 AST 28 ALT 15 Alkaline Phosphatase 82 Troponin I High Sens 8.0 Total Protein 6.9 Albumin 3.8 Globulin 3.1 Albumin/Globulin Ratio 1.2 Lipase 660 H - Rads (name of study) Right upper quadrant ultrasound Relevant Findings:: Final report received, See rad report Chest x-ray Relevant Findings:: Final report received, See rad report CT abdomen pelvis Relevant Findings:: Final report received, See rad report PD Medical Decision Making - ED course Complexity details: reviewed results, re-evaluated patient, considered differential, d/w patient, d/w family, d/w computer consultant ED course: 87-year-old female with significant epigastric and right upper quadrant abdominal pain today. Her CBC does not show any significant abnormalities. Her chemistries reveal an elevated lipase, but normal liver function tests and normal bilirubin. Her high sensitive troponin is normal. Her EKG does not show any acute abnormalities. She reportedly had a recent echocardiogram at [facility] in [place] with an EF of 60% and as is documented in her recent hematology oncology note. Her pain is well controlled in the emergency department. IV fluids given. Her ultrasound shows distention of the gallbladder with layering cholelithiasis and borderline gallbladder wall thickening but no pericholecystic fluid. She has a mild dilation of the pancreatic duct, but no dilation of the intra or extrahepatic biliary ducts. Discussed the case with Dr. Porter, general surgery, he recommends treating as pancreatitis, IV fluids, pain control consider MRCP tomorrow. There are no beds available in the hospital tonight, therefore the patient will be boarded in the emergency department awaiting discharges in the morning. Patient signed out to the oncoming emergency department physician. This document was made in part using voice recognition software. While efforts are made to proofread this document, sound alike and grammatical errors may occur. Final CT scan reading will be followed up by the oncoming emergency department physician. Departure - Departure Disposition: 66 [facility] DC/Xfer Clinical Impression: Pancreatitis Qualifiers: Chronicity: acute Pancreatitis type: biliary Acute pancreatitis complication: no infection or necrosis Qualified Code(s): K85.10 - Biliary acute pancreatitis without necrosis or infection Condition: Stable
[2023-01-03 18:20] LABS: BASOPHILS % (AUTO) 0.6 %; EOSINOPHILS # (AUTO) 0.1 10^3/uL (0.0-0.7); EOSINOPHILS % (AUTO) 1.4 %; HCT - HEMATOCRIT 38.4 % (37.0-47.0); HGB - HEMOGLOBIN 12.3 g/dL (12.0-16.0); LYMPHOCYTES # (AUTO) 1.8 10^3/uL (1.5-3.5); LYMPHOCYTES % (AUTO) 36.4 %; MEAN CORPUSCULAR HEMOGLOBIN 32.5 pg (27.0-31.0); MEAN CORPUSCULAR VOLUME 101.6 fL (81.0-99.0); MEAN PLATELET VOLUME 10.9 fL (7.9-10.8); MONOCYTES # (AUTO) 0.6 10^3/uL (0.0-1.0); MONOCYTES % (AUTO) 12.3 %; NEUTROPHILS # (AUTO) 2.4 10^3/uL (1.5-6.6); NEUTROPHILS % (AUTO) 48.9 %; PLT - PLATELET COUNT 194 10^3/uL (130-450); RED BLOOD COUNT 3.78 10^6/uL (4.20-5.40); RED CELL DISTRIBUTION WIDTH 12.3 % (12.0-15.0)
[2023-01-03 18:50] LABS: POTASSIUM 3.6 mmol/L (3.5-5.0)
[2023-01-03 18:51] LABS: ALBUMIN 3.8 g/dL (3.2-5.5); ALBUMIN/GLOBULIN RATIO 1.2 (1.0-2.2); BILIRUBIN,TOTAL 0.5 mg/dL (0.2-1.0); CALCIUM 9.4 mg/dL (8.5-10.3); TOTAL PROTEIN 6.9 g/dL (6.7-8.2)
--- NOTE | 2023-01-03 18:53 | XRAY Report ---
PROCEDURE: Chest 1 View X-Ray INDICATIONS: Chest Pain TECHNIQUE: One view of the chest was acquired. COMPARISON: 11/04/2022. Correlation is also made with chest CT, 11/04/2022. FINDINGS: Surgical changes and devices: None. Lungs and pleura: No pleural effusions or pneumothorax. Lungs are clear. Mediastinum: Mediastinal contours appear normal. Heart size is normal. Bones and chest wall: No suspicious bony lesions. Age-appropriate degenerative changes are seen. O verlying soft tissues appear unremarkable. IMPRESSION: Portable chest within normal limits for age. Reviewed by: Anshu Self MD on 01/03/2023 5:51 PM AKDEBORAH Approved by: Anshu Self MD on 01/03/2023 5:51 PM AKDEBORAH Station ID: [id number]
[2023-01-03] MEDS ORDERED: SUCRALFATE 1 GM/10 ML UDC PO STA (18:55)
[2023-01-03] MEDS ORDERED: MAG HYDROX/AL HYDROX/SIMETH 30 ML UDC PO STA (18:55)
[2023-01-03] MEDS ORDERED: FAMOTIDINE 20 MG TABLET PO STA (18:55)
[2023-01-03] MEDS ORDERED: HYDROmorphone 1 MG/ML CARPUJECT IVP STA (20:33)
--- NOTE | 2023-01-03 20:58 | Ultrasound Report ---
PROCEDURE: Abdomen Limited INDICATIONS: RUQ abd pain TECHNIQUE: Real-time focused scanning was performed of the abdomen, with image documentation. COMPARISON: CT abdomen pelvis 06/26/2021 FINDINGS: Liver: Liver is normal in size without focal hepatic lesions identified. The liver is slightly increa sed in echogenicity with coarse sonographic echotexture suggestive of mild fatty infiltration. Gallbladder: The gallbladder is distended with small dependent gallstones. Gallbladder wall demonstra miya borderline thickening. No pericholecystic fluid. Biliary ducts: No intrahepatic or extrahepatic biliary ductal dilatation. Pancreas: The visualized pancreatic duct appears mildly dilated, measuring up to 0.4 cm. Right kidney: Right kidney measures 8.9. No hydronephrosis. 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 IMPRESSION: 1. Distention of the gallbladder with layering cholelithiasis and borderline gallbladder wall thicken ing. No pericholecystic fluid. The findings are equivocal for developing acute cholecystitis and eli elation is recommended clinically. 2. Mild dilatation of the pancreatic duct may reflect sequelae of obstruction. If clinically indicate d, further evaluation may obtained with MRCP. Reviewed by: Félix Mcintyre MD on 01/03/2023 8:57 PM PDT Approved by: Félix Mcintyre MD on 01/03/2023 8:57 PM PDT Station ID: [id number]
[2023-01-03] MEDS ORDERED: ONDANSETRON 4 MG/2 ML VIAL IVP STA (21:04)
[2023-01-03] MEDS ORDERED: iohexoL-300 100 ML VIAL ONE (21:11)
[2023-01-03] MEDS ORDERED: diphenhydrAMINE INJ 50 MG/ML VIAL IVP STA (21:19)
[2023-01-03] MEDS ORDERED: methylPREDNISolone SUCCINATE 40 MG/ML VIAL IVP STA (21:19)
[2023-01-03] MEDS ORDERED: iohexoL-300 100 ML VIAL IVP ONE (22:03)
[2023-01-03] MEDS ORDERED: SODIUM CHLORIDE 0.9% 1,000 ML IV STA (22:04)
[2023-01-03] MEDS ORDERED: ONDANSETRON 4 MG/2 ML VIAL IVP PRN (22:45)
--- NOTE | 2023-01-03 22:58 | CT Report ---
PROCEDURE: ABDOMEN/PELVIS W INDICATIONS: pancreatitis, abd pain, vomiting CONTRAST: Omni 300 100ml TECHNIQUE: After the administration of intravenous contrast, 5 mm thick sections acquired from the diaphragms to the symphysis. 5 mm thick coronal and sagittal reformats were acquired. For radiation dose reducti on, the following was used: automated exposure control, adjustment of mA and/or kV according to brielle ent size. COMPARISON: Ultrasound abdomen 01/03/2023. CT abdomen pelvis 06/26/2021. FINDINGS: Image quality: Excellent. Lung bases:There is a small region of medial infrahilar consolidation in the right lower lobe. Mild dependent atelectasis and scarring are demonstrated in the lung bases. Heart: Heart is normal in size. ABDOMEN: Liver:There is a cyst redemonstrated laterally in the right hepatic lobe. A small hypodense lesion p osteriorly in the right hepatic lobe measuring up to 0.9 cm is redemonstrated. The findings are nonsp ecific but suggestive of a small cyst. Gallbladder:The gallbladder is distended without discrete calcified gallstones or wall thickening. N o pericholecystic fluid. Biliary ducts:There is mild intrahepatic biliary ductal dilatation as well as dilatation of the extr ahepatic ducts, with the common bile duct measuring up to 1.1 cm. Pancreas:No peripancreatic fat stranding or fluid collections. No discrete pancreatic mass identifie d. No pancreatic duct dilatation seen on CT. Spleen: Normal in size. Adrenal Glands: No adrenal nodules. Kidneys and Ureters: No hydronephrosis. Stomach and Bowel: Stomach, small bowel loops, and colon are normal in caliber and wall thickness. T he appendix is not discretely visualized and is likely surgically absent. There is colonic diverticul osis without acute diverticulitis. Peritoneum: No abnormal intraperitoneal fluid. No free air. Ventral Wall: No hernia. Abdominal Nodes: No retroperitoneal or mesenteric adenopathy by size criteria. Vessels: Aorta and inferior vena cava are normal in size. 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 The findings ar e similar to the prior CT study. PELVIS: Pelvic Organs: Unremarkable. Bladder: Unremarkable. Pelvic Nodes: No enlarged lymph nodes. Miscellaneous: No inguinal hernias. Bones: Visualized osseous structures demonstrate no suspicious lesions. IMPRESSION: 1. Distention of the gallbladder without wall thickening, calcified gallstones, or pericholecystic fl uid. Noncalcified stones noted on the recent abdominal ultrasound. The findings are equivocal for dev eloping cholecystitis and clinical follow-up is recommended as well as a short-term follow up repeat CT if clinically indicated. 2. No CT evidence of acute pancreatitis. No pancreatic duct dilatation seen on CT. 3. 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 Reviewed by: Félix Mcintyre MD on 01/03/2023 10:57 PM PDT Approved by: Félix Mcintyre MD on 01/03/2023 10:57 PM PDT Station ID: [id number]
[2023-01-04 06:12] LABS: BASOPHILS % (AUTO) 0.7 %; HCT - HEMATOCRIT 35.9 % (37.0-47.0); HGB - HEMOGLOBIN 11.5 g/dL (12.0-16.0); LYMPHOCYTES # (AUTO) 0.7 10^3/uL (1.5-3.5); LYMPHOCYTES % (AUTO) 23.3 %; MEAN CORPUSCULAR HEMOGLOBIN 32.5 pg (27.0-31.0); MEAN CORPUSCULAR VOLUME 101.4 fL (81.0-99.0); MEAN PLATELET VOLUME 10.3 fL (7.9-10.8); MONOCYTES # (AUTO) 0.1 10^3/uL (0.0-1.0); NEUTROPHILS # (AUTO) 2.2 10^3/uL (1.5-6.6); NEUTROPHILS % (AUTO) 72.7 %; PLT - PLATELET COUNT 173 10^3/uL (130-450); RED BLOOD COUNT 3.54 10^6/uL (4.20-5.40); RED CELL DISTRIBUTION WIDTH 12.4 % (12.0-15.0)
[2023-01-04 06:38] LABS: ALBUMIN 3.4 g/dL (3.2-5.5); ALBUMIN/GLOBULIN RATIO 1.3 (1.0-2.2); BILIRUBIN,TOTAL 0.3 mg/dL (0.2-1.0); CALCIUM 9.1 mg/dL (8.5-10.3); CREATININE 0.9 mg/dL (0.4-1.0); POTASSIUM 4.4 mmol/L (3.5-5.0)
[2023-01-04] MEDS ORDERED: GADOBUTROL 7.5 MMOL/7.5 ML VIAL ONE (11:24)
[2023-01-04] MEDS ORDERED: GADOBUTROL 7.5 MMOL/7.5 ML VIAL IVP ONE (12:21)
--- NOTE | 2023-01-04 12:56 | MRI Report ---
PROCEDURE: MRCP W/WO INDICATIONS: pancreatitis, gallstones CONTRAST: GADAVIST 6.8 ML TECHNIQUE: Coronal ultra fast SE through the abdomen, axial 2-D spoiled GE in- and [id number], and breath-hold T2 FSE with fat saturation through the biliary system and pancreas. Oblique coronal and axial thin- slice ultra fast SE, radial thick-slab ultra fast SE centered on the extrahepatic bile ducts. COMPARISON: CT abdomen pelvis 01/03/2023. Abdominal ultrasound of 01/03/2023. FINDINGS: Image quality: Excellent. Pancreas and biliary system: Intra- and extra-hepatic biliary ducts are non dilated. Pancreas is no rmal in morphology, without adjacent soft tissue edema. Pancreatic duct is normal in caliber, withou t developmental anomalies. Gallbladder is mildly distended measuring 3.9 cm in diameter, previously 5.4 cm in diameter yesterday. No gallstones identified. Other solid organs: Liver and spleen are normal in size. T2 hyperintense cysts in the right lobe of liver. No adrenal nodules. Both kidneys are normal in size, without hydronephrosis. Nodes and vessels: No retroperitoneal or mesenteric adenopathy by size criteria. Aorta and inferior vena cava are normal in size. 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 Bowel and peritoneum: Unenhanced bowel loops are normal in caliber. No free fluid. Lung bases: No basal pleural effusions. Heart size is normal. Bones and soft tissues: No ventral hernias. Bone marrow is of normal overall signal. Mild scoliosis . IMPRESSION: 1. No pancreatic or biliary ductal dilatation. No choledocholithiasis. 2. Gallbladder is mildly distended. Distention is decreased compared to CT performed yesterday. 3. No peripancreatic fluid collection. Reviewed by: Erasmo Gan MD on 01/04/2023 12:54 PM PDT Approved by: Erasmo Gan MD on 01/04/2023 12:54 PM PDT Station ID: [id number]
--- NOTE | 2023-01-04 13:49 | ED Physician Documentation ---
ED Addendum - Addendum Addendum: Patient was signed out to me by overnight physician Gallstone pancreatitis. Overall feeling okay this morning with mild amounts of pain. Plan for MRCP later today. 01/04/23 13:47 Patient has been boarding overnight in the emergency department pending bed availability for admission to the hospital.She had an MRCP this morning which was negative for any biliary obstruction. She has gallstone pancreatitis. A [facility] bed is available. Discussed with hospitalist, Dr. Tinajero who agrees to admit the patient for further management. She is aware that Surgery was consulted on the patient yesterday but is not planning on doing surgery anytime soon. Patient would need medical clearance prior to surgery given her complex medical history (on xarelto for bilateral PE) and age. Departure - Departure Disposition: 66 [facility] DC/Xfer Clinical Impression: Gallstone Pancreatitis Qualifiers: Chronicity: acute Pancreatitis type: biliary Acute pancreatitis complication: no infection or necrosis Qualified Code(s): K85.10 - Biliary acute pancreatitis without necrosis or infection Condition: Stable
[2023-01-04] MEDS ORDERED: HYDROmorphone 0.5 MG/0.5 ML SYRINGE IVP PRN (15:05)
--- NOTE | 2023-01-04 16:52 | HISTORY & PHYSICAL EXAMINATION ---
Chief Complaint - Chief Complaint Chief Complaint: Abd pain History of Present Illness - Admitted From Admitted From:: ED - History Obtained From Records Reviewed: yes History obtained from: ED provider, chart review and the patient - History of Present Illness HPI Comment/Other: This is an 87-year-old white female with a history of bilateral pulmonary emboli diagnosed 2 months ago, has been on Xarelto. 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 One month ago after starting her Xarelto for PE, she again had GI bleed and was found to have an AVM on upper endoscopy which was treated and she has been restarted on her Xarelto several weeks ago. The patient is followed by Dr. Weston in heme-onc [facility] clinic here. He has done a work-up to look for underlying malignancy as the cause for the unprovoked PEs; Abdominal CT and thoracic imaging have been unremarkable and breast work-up is done but results are pending. The patient presented to the ED last night, after a 1 day complaint of sharp epigastric pain radiating to the right upper quadrant and then up into her chest. Work-up in the ED shows that she has gallstones and also has pancreatitis with an elevated lipase level. The ED provider reached out to the general surgeon who advised that she have MRCP and this showed no evidence of obstruction. The patient's repeat lipase level has increased from 660 up to 1560. She has started to receive IV pain meds in the ER as well as IV fluids. The ED provider reached out to me on the Hospitalist Team and we discussed this patient. She will be admitted for treating gallstone-induced pancreatitis. 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 HEENT: reports: Cataracts - Family & Social History Living arrangement: At home Meds/Allgy - Home Medications Home Medications: Ambulatory Orders Medication Instructions Recorded Confirmed Tolterodine Tartrate [Detrol LA] 2 mg PO DAILY 01/11/15 01/04/23 Potassium Chloride 10 meq PO DAILY 08/05/20 01/04/23 Valsartan [Diovan] 80 mg PO DAILY 08/05/20 01/04/23 Levothyroxine Sodium [Synthroid] 88 mcg PO QDAC 12/25/20 01/04/23 Furosemide [Lasix] 40 mg PO DAILY tablet 12/29/20 01/04/23 Brimonidine 0.1% Ophth Drops 1 drops OPTH BID 06/01/21 01/04/23 [Alphagan P 0.1% Ophth Drops] Metoprolol Succinate [Toprol Xl] 50 mg PO DAILY 08/01/21 01/04/23 Pantoprazole [Protonix] 40 mg PO DAILY 01/04/23 01/04/23 Rivaroxaban [Xarelto] 20 mg PO DAILY 01/04/23 01/04/23 allopurinoL [Zyloprim] 100 mg PO DAILY 01/04/23 01/04/23 - Allergies Allergies/Adverse Reactions: Allergies Allergy/AdvReac Type Severity Reaction Status Date / Time meperidine HCl * Allergy Intermediate Hives Verified 11/08/22 21:16 [From Demerol] Iodine and Iodide Containing Allergy Mild Rash Verified 11/08/22 21:16 Produc Review of Systems - Gastrointestinal Gastrointestinal: reports: Abdominal pain - All Other Systems All Other Systems: reports: Reviewed and negative Exam - Vital Signs Vital Signs: Vital Signs x48h Temp Pulse Pulse Resp BP BP Pulse Ox 01/04/23 16:42 36.6 C 58 L 20 150/60 H 100 01/04/23 16:14 66 18 137/59 H 98 01/04/23 16:00 66 19 137/59 H 94 01/04/23 15:00 66 13 107/89 H 94 01/04/23 14:00 65 15 134/66 H 100 01/04/23 13:30 62 19 139/64 H 96 01/04/23 13:00 57 L 18 126/46 L 95 01/04/23 11:00 57 L 13 131/56 H 98 - Physical Exam General Appearance: positive: No acute distress, Alert Eyes Bilateral: positive: Normal inspection, EOMI ENT: positive: ENT inspection nml, Dry mucous membranes Neck: positive: Nml inspection, No JVD Respiratory: positive: No respiratory distress Cardiovascular: positive: Regular rate & rhythm Abdomen: positive: Non-tender, No distention Skin: positive: Warm, Dry Extremities: positive: Non-tender, No pedal edema Neurologic/Psychiatric: positive: Oriented x3, Motor nml Conclusion/Plan - Problem List (1) Acute gallstone pancreatitis Conclusion/Plan: Because there is no current urgency in GB surgery, will evaluate whether this patient needs surgery on her gallbladder urgently or electively. Initial impression is that because of her advanced age and the need for at least 3 months of oral anticoagulant (as per Heme-Onc [facility] notes by Dr Weston), the preferred approach would be a delay in surgical treatment of the gallbladder Plan: In the acute phase of her pancreatitis, we will manage her with bowel rest ordering n.p.o. except meds and sips and chips of ice. Give IV narcotic pain meds as needed Give IV fluids Because surgery is not imminent, we will continue with her oral anticoagulant. (2) Bilateral pulmonary embolism Conclusion/Plan: Patient presented with mid back pain in late October 2022 and the work-up by CTA showed that she has bilateral PE. She was started on Xarelto. She is being followed by heme-onc Dr. Oakes in [facility] clinic and he has seen her several times since then. He started a work-up to look for cause of an unprovoked PE. Thus far no malignancy has been found (but breast evaluation report is still pending). In reviewing Dr. Weston's notes, which I did, he recommends 3 to 6 months minimum of oral anticoagulant and would even prefer 1 year by continuing a prophylactic dose after the 6 months. Because the patient has had recurrent GI bleeds, even one episode a month ago since being on Xarelto, Dr. Weston has written that she might need a shortened course of about 3 months of Xarelto because of risks of GI bleeds. Plan: We will continue with her anticoagulant treatment. Because there is no Xarelto on formulary here, will use the substitute of Eliquis which for PE at the 2-month bre, dosing is 5 mg twice daily (3) Hypothyroidism Conclusion/Plan: Plan: We will continue her thyroid medicine Check TSH with a.m. 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 Once this was treated with argon laser. Another was treated with cautery. Plan: Because she must be on DOAC, we need to closely watch for recurrence of GI blood loss - Lab Results Fish Bones: 01/05/23 04:30 01/05/23 04:30 - Diagnostic Imaging Results Diagnostic Imaging Results: positive: Final report reviewed - Other Other Results/Comments: Attestation: The patient is expected to be discharged or transferred to another facility within 96 hours: Yes.
[2023-01-04] MEDS: DEXTROSE 5%-LACTATED RINGERS 1,000 ML IV SCH (16:54)
[2023-01-04] MEDS: SODIUM CHLORIDE FLUSH 0.9% 10 ML SYRINGE IVP SCH (16:54)
[2023-01-04] MEDS: BRIMONIDINE 0.2% OPHTH DROPS 5 ML EACHEYE SCH (20:16)
[2023-01-04] MEDS: APIXABAN 5 MG TABLET PO SCH (20:21)
[2023-01-04] MEDS: FAMOTIDINE 20 MG/2 ML VIAL IVP SCH (20:23)
[2023-01-04] MEDS: HYDROmorphone 0.5 MG/0.5 ML SYRINGE IVP PRN (20:27)
[2023-01-05] MEDS: SODIUM CHLORIDE FLUSH 0.9% 10 ML SYRINGE IVP SCH ×4 (00:18→23:35)
[2023-01-05 05:02] LABS: BASOPHILS % (AUTO) 0.8 %; EOSINOPHILS # (AUTO) 0.1 10^3/uL (0.0-0.7); EOSINOPHILS % (AUTO) 2.2 %; HCT - HEMATOCRIT 32.8 % (37.0-47.0); HGB - HEMOGLOBIN 10.3 g/dL (12.0-16.0); LYMPHOCYTES # (AUTO) 1.4 10^3/uL (1.5-3.5); LYMPHOCYTES % (AUTO) 38.3 %; MEAN CORPUSCULAR HEMOGLOBIN 32.4 pg (27.0-31.0); MEAN CORPUSCULAR HGB CONC 31.4 g/dL (32.0-36.0); MEAN CORPUSCULAR VOLUME 103.1 fL (81.0-99.0); MEAN PLATELET VOLUME 11.7 fL (7.9-10.8); MONOCYTES # (AUTO) 0.4 10^3/uL (0.0-1.0); MONOCYTES % (AUTO) 10.4 %; NEUTROPHILS # (AUTO) 1.8 10^3/uL (1.5-6.6); PLT - PLATELET COUNT 156 10^3/uL (130-450); RED BLOOD COUNT 3.18 10^6/uL (4.20-5.40); RED CELL DISTRIBUTION WIDTH 12.5 % (12.0-15.0); WHITE BLOOD COUNT 3.7 x10^3/uL (4.8-10.8)
[2023-01-05] MEDS: DEXTROSE 5%-LACTATED RINGERS 1,000 ML IV SCH ×2 (05:16→16:37)
[2023-01-05] MEDS: SODIUM CHLORIDE FLUSH 0.9% 10 ML SYRINGE IVP PRN ×2 (05:17→05:22)
[2023-01-05 05:21] LABS: ALBUMIN 3.1 g/dL (3.2-5.5); ALBUMIN/GLOBULIN RATIO 1.4 (1.0-2.2); BILIRUBIN,TOTAL 0.8 mg/dL (0.2-1.0); CALCIUM 8.8 mg/dL (8.5-10.3); CREATININE 0.8 mg/dL (0.4-1.0); PHOSPHORUS 2.9 mg/dL (2.5-4.6); TOTAL PROTEIN 5.3 g/dL (6.7-8.2)
[2023-01-05] MEDS: HYDROmorphone 0.5 MG/0.5 ML SYRINGE IVP PRN (05:21)
[2023-01-05 05:23] LABS: POTASSIUM 3.8 mmol/L (3.5-5.0)
[2023-01-05] MEDS: LEVOTHYROXINE 88 MCG TABLET PO SCH (06:15)
[2023-01-05] MEDS ORDERED: LEVOTHYROXINE 75 MCG TABLET PO SCH (07:00)
[2023-01-05] MEDS: SOLIFENACIN SUCCINATE 5 MG TABLET PO SCH (08:29)
[2023-01-05] MEDS: allopurinoL 100 MG TABLET PO SCH (08:29)
[2023-01-05] MEDS: APIXABAN 5 MG TABLET PO SCH ×2 (08:29→21:08)
[2023-01-05] MEDS: METOPROLOL SUCCINATE 50 MG TABLET PO SCH (08:29)
[2023-01-05] MEDS: BRIMONIDINE 0.2% OPHTH DROPS 5 ML EACHEYE SCH ×2 (08:32→21:14)
[2023-01-05] MEDS: FAMOTIDINE 20 MG/2 ML VIAL IVP SCH ×2 (08:38→21:08)
--- NOTE | 2023-01-05 15:45 | PHARMACY PROGRESS NOTE ---
- Best Possible Medication History Admit Date and Time: 01/04/23 1505 Processed by: Pharmacy Medication History completed: Yes Patient Interview: Completed Secondary Source(s): Insurance records As the person ultimately responsible for medication therapy, providers are able to order a medication from an existing home medication list in [facility] via the "Reconcile Routine" prior to Confirmation of that medication by production support consultant. Such practice is discouraged except when the physician, in their clinical judgment, deems that a medical need exists for a medication without regard to previous use.
--- NOTE | 2023-01-05 19:36 | PROVIDER PROGRESS NOTE ---
Assessment/Plan - Problem List (1) Acute gallstone pancreatitis Assessment/Plan: (1) Acute gallstone pancreatitis Conclusion/Plan: Because there is no urgency in GB surgery, I asked Dr. Allen Porter and he said it should be done electively but within 6 weeks. Because of her advanced age and the need for at least 3 months of oral anticoagulant (as per [place] [facility] [place] the preferred approach would be a delay in surgical treatment of the gallbladder Plan: In the acute phase of her pancreatitis, cont to manage her with bowel rest. Since her pain is controlled and her lipase level has decreased by more than half, will order clear liquids for dinner tonight Give IV narcotic pain meds as needed Cont IV fluids Because surgery is not imminent, we will continue with her oral anticoagulant. (2) Bilateral pulmonary embolism Conclusion/Plan: Patient presented with mid back pain in late October 2022 and the work-up by CTA showed that she has bilateral PE. She was started on Xarelto. She is being followed [place] heme[place] [facility] [place] and he has seen her several times since then. He started a work-up to look for cause of an unprovoked PE. Thus far no malignancy has been found (but breast evaluation report is still pending). In reviewing Dr. Weston's notes, which I did, he recommends 3 to 6 months minimum of oral anticoagulant and would even prefer 1 year by continuing a prophylactic dose after the 6 months. Because the patient has had recurrent GI bleeds, (the latest GI bleed was just one episode a month ago, but she has been restarted on Xarelto), Dr. Weston has written that she might need a shortened course of about 3 months of Xarelto because of risks of GI bleeds. Plan: We will continue with her anticoagulant treatment. Because there is no Xarelto on formulary here, we are using the substitute of Eliquis at 5 mg twice daily (3) Hypothyroidism Conclusion/Plan: Labs were all reviewed. 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 Once this was treated with argon laser. Another was treated with cautery. Plan: Because she must be on DOAC, we need to closely watch for recurrence of GI blood loss. - Current Meds Current Meds: Current Medications Generic Name Dose Route Start Last Admin Trade Name Freq PRN Reason Stop Dose Admin Allopurinol 100 mg 01/05/23 09:00 01/05/23 08:29 Allopurinol 100 Mg Tablet PO 100 mg DAILY SAMANTHA Administration Apixaban 5 mg 01/04/23 21:00 01/05/23 08:29 Apixaban 5 Mg Tablet PO 5 mg BID SAMANTHA Administration Brimonidine Tartrate 1 drops 01/04/23 21:00 01/05/23 08:32 Brimonidine 0.2% Ophth Drops 5 Ml EACHEYE 1 drops BID SAMANTHA Administration Famotidine 20 mg 01/04/23 21:00 01/05/23 08:38 Famotidine 20 Mg/2 Ml Vial IVP 20 mg BID SAMANTHA Administration Dextrose/Lactated Ringer's 1,000 mls @ 83.333 mls/hr 01/04/23 16:00 01/05/23 16:37 D5lr IV 83.333 mls/hr .Q12H SAMANTHA Administration Levothyroxine Sodium 88 mcg 01/05/23 07:00 01/05/23 06:15 Levothyroxine 88 Mcg Tablet PO 88 mcg QDAC SAMANTHA Administration Metoprolol Succinate 50 mg 01/05/23 09:00 01/05/23 08:29 Metoprolol Succinate 50 Mg Tablet PO 50 mg DAILY SAMANTHA Administration Ondansetron HCl 4 mg 01/03/23 22:45 01/05/23 05:17 Ondansetron 4 Mg/2 Ml Vial IVP 4 mg Q6HR PRN Administration Nausea / Vomiting Sodium Chloride 10 ml 01/04/23 15:05 01/05/23 05:22 Sodium Chloride Flush 0.9% 10 Ml Syringe IVP 10 ml PRN PRN Administration NEEDED PER PROVIDER ORDERS Sodium Chloride 10 ml 01/04/23 17:00 01/05/23 16:47 Sodium Chloride Flush 0.9% 10 Ml Syringe IVP Not Given 0100,0900,1700 SAMANTHA Solifenacin 10 mg 01/05/23 09:00 01/05/23 08:29 Solifenacin Succinate 5 Mg Tablet PO 10 mg DAILY SAMANTHA Administration - Lab Result Fish Bone Diagrams: 01/05/23 04:30 01/05/23 04:30 - Additional Planning My Orders: My Active Orders 01/04/23 21:00 Apixaban [Eliquis] 5 mg PO BID Brimonidine 0.2% Ophth Drops [Alphagan P 0.2% Ophth Drops] 1 drops EACHEYE BID Famotidine [Pepcid] 20 mg IVP BID 01/05/23 07:00 Levothyroxine [Synthroid] 88 mcg PO QDAC 01/05/23 09:00 Metoprolol Succinate [Toprol Xl] 50 mg PO DAILY Solifenacin Succinate [Vesicare] 10 mg PO DAILY allopurinoL [Zyloprim] 100 mg PO DAILY 01/05/23 Dinner Clear Liquid Diet [DIET] 01/06/23 05:00 BMP - BASIC METABOLIC PANEL [CHEM] DAILYLAB LIPASE [CHEM] DAILYLAB VITAMIN B12 [IAI] DAILYLAB 01/07/23 05:00 BMP - BASIC METABOLIC PANEL [CHEM] DAILYLAB LIPASE [CHEM] DAILYLAB 01/08/23 05:00 BMP - BASIC METABOLIC PANEL [CHEM] DAILYLAB LIPASE [CHEM] DAILYLAB 01/09/23 05:00 BMP - BASIC METABOLIC PANEL [CHEM] DAILYLAB Subjective - Subjective Patient Reports: Feeling Better (Pain is diminished somewhat. She is hungry) Objective Vital Signs: Vital Signs - 24 hr 01/04/23 01/05/23 01/05/23 21:00 00:10 08:00 Temperature 36.4 C L 36.4 C L Heart Rate [ 66 69 64 Brachial] Respiratory 16 16 Rate Blood Pressure 143/62 H 127/59 L 138/64 H [Right Brachial artery] O2 Saturation 96 96 01/05/23 15:50 Temperature 36.6 C Heart Rate [ 69 Brachial] Respiratory 16 Rate Blood Pressure 163/68 H [Right Brachial artery] O2 Saturation 96 Oxygen O2 Source Room air Oxygen Flow Rate 1 I&O (Last 24 Hrs): Intake and Output Totals x24h 01/03/23 01/04/23 01/05/23 23:59 23:59 23:59 Intake Total 3355.134 9286.332 Balance 3980.166 7024.332 General: Alert, Oriented x3 HEENT: Mucous membr. moist/pink Neck: Supple, No JVD Neuro: Alert, Non Focal Cardiovascular: No murmurs Respiratory: No respiratory distress Abdomen: Normal bowel sounds, Soft, No tenderness Extremities: No clubbing, No edema - Results Results: Laboratory Results WBC 3.7 x10^3/uL (4.8-10.8) L 01/05/23 04:30 RBC 3.18 10^6/uL (4.20-5.40) L 01/05/23 04:30 Hgb 10.3 g/dL (12.0-16.0) L 01/05/23 04:30 Hct 32.8 % (37.0-47.0) L 01/05/23 04:30 MCV 103.1 fL (81.0-99.0) H 01/05/23 04:30 MCH 32.4 pg (27.0-31.0) H 01/05/23 04:30 MCHC 31.4 g/dL (32.0-36.0) L 01/05/23 04:30 RDW 12.5 % (12.0-15.0) 01/05/23 04:30 Plt Count 156 10^3/uL (130-450) 01/05/23 04:30 MPV 11.7 fL (7.9-10.8) H 01/05/23 04:30 Neut # (Auto) 1.8 10^3/uL (1.5-6.6) 01/05/23 04:30 Lymph # (Auto) 1.4 10^3/uL (1.5-3.5) L 01/05/23 04:30 [place] # (Auto) 0.4 10^3/uL (0.0-1.0) 01/05/23 04:30 Eos # (Auto) 0.1 10^3/uL (0.0-0.7) 01/05/23 04:30 Baso # (Auto) 0.0 10^3/uL (0.0-0.1) 01/05/23 04:30 Absolute Nucleated RBC 0.00 x10^3/uL 01/05/23 04:30 Nucleated RBC % 0.0 /100WBC 01/05/23 04:30 Sodium 143 mmol/L (135-145) 01/05/23 04:30 Potassium 3.8 mmol/L (3.5-5.0) 01/05/23 04:30 Chloride 114 mmol/L (101-111) H 01/05/23 04:30 Carbon Dioxide 24 mmol/L (21-32) 01/05/23 04:30 Anion Gap 5.0 (6-13) L 01/05/23 04:30 BUN 21 mg/dL (6-20) H 01/05/23 04:30 Creatinine 0.8 mg/dL (0.4-1.0) 01/05/23 04:30 Estimated GFR (MDRD) 68 (>89) L 01/05/23 04:30 Glucose 116 mg/dL (70-100) H 01/05/23 04:30 Calcium 8.8 mg/dL (8.5-10.3) 01/05/23 04:30 Phosphorus 2.9 mg/dL (2.5-4.6) 01/05/23 04:30 Magnesium 2.0 mg/dL (1.7-2.8) 01/05/23 04:30 Total Bilirubin 0.8 mg/dL (0.2-1.0) 01/05/23 04:30 AST 26 IU/L (10-42) 01/05/23 04:30 ALT 15 IU/L (10-60) 01/05/23 04:30 Alkaline Phosphatase 61 IU/L (42-121) 01/05/23 04:30 Troponin I High Sens 8.0 ng/L (2.3-14.8) 01/03/23 18:14 Total Protein 5.3 g/dL (6.7-8.2) L 01/05/23 04:30 Albumin 3.1 g/dL (3.2-5.5) L 01/05/23 04:30 Globulin 2.2 g/dL (2.1-4.2) 01/05/23 04:30 Albumin/Globulin Ratio 1.4 (1.0-2.2) 01/05/23 04:30 Lipase 126 U/L (22-51) H 01/05/23 04:30 TSH 5.28 uIU/mL (0.34-5.60) 01/05/23 04:30 - Procedures Procedures: Procedures DRAINAGE OF PELVIC CAVITY WITH DRAIN DEV, OPEN APPROACH (12/25/20) EXCISION OF CECUM, PERCUTANEOUS ENDOSCOPIC APPROACH (12/25/20) EXCISION OF DUODENUM, ENDO, DIAGN (08/06/20) EXCISION OF ESOPHAGUS, ENDO, DIAGN (08/06/20) EXCISION OF STOMACH, ENDO, DIAGN (08/06/20) EXCISION OF STOMACH, PYLORUS, ENDO, DIAGN (08/06/20) INSPECTION OF PELVIC CAVITY, PERC ENDO APPROACH (12/25/20) IRRIGATION OF PERITONEAL CAVITY USING IRRIGAT, PERC APPROACH (12/25/20) REPLACEMENT OF LEFT LENS WITH SYNTH SUB, PERC APPROACH (12/15/15) REPLACEMENT OF RIGHT LENS WITH SYNTH SUB, PERC APPROACH (12/29/15)
[2023-01-05] MEDS: ACETAMINOPHEN 325 MG TABLET PO PRN ×2 (20:23→21:20)
[2023-01-06] MEDS: DEXTROSE 5%-LACTATED RINGERS 1,000 ML IV SCH (02:56)
[2023-01-06 05:19] LABS: CALCIUM 8.8 mg/dL (8.5-10.3); CREATININE 0.8 mg/dL (0.4-1.0); POTASSIUM 3.6 mmol/L (3.5-5.0)
[2023-01-06] MEDS: LEVOTHYROXINE 88 MCG TABLET PO SCH (05:30)
[2023-01-06] MEDS ORDERED: MAG HYDROX/AL HYDROX/SIMETH 30 ML UDC PO PRN (14:23)
[2023-01-06] MEDS ORDERED: DEXTROSE 5%-LACTATED RINGERS 1,000 ML IV SCH (15:22)
[2023-01-06] MEDS: allopurinoL 100 MG TABLET PO SCH (16:14)
[2023-01-06] MEDS: BRIMONIDINE 0.2% OPHTH DROPS 5 ML EACHEYE SCH ×2 (16:14→21:05)
[2023-01-06] MEDS: APIXABAN 5 MG TABLET PO SCH ×2 (16:14→21:04)
[2023-01-06] MEDS: SODIUM CHLORIDE FLUSH 0.9% 10 ML SYRINGE IVP SCH ×3 (16:15→23:45)
[2023-01-06] MEDS: SOLIFENACIN SUCCINATE 5 MG TABLET PO SCH (16:15)
[2023-01-06] MEDS: FAMOTIDINE 20 MG/2 ML VIAL IVP SCH ×2 (16:15→21:04)
[2023-01-06] MEDS: METOPROLOL SUCCINATE 50 MG TABLET PO SCH (16:15)
--- NOTE | 2023-01-06 17:30 | PROVIDER PROGRESS NOTE ---
Assessment/Plan - Problem List (1) Acute gallstone pancreatitis Assessment/Plan: Since there is no urgency in GB surgery, I asked Dr. Allen Porter and he said it should be done electively but within 6 weeks. Because of her advanced age and the need for at least 3 months of oral anticoagulant (as per Heme-[facility]c [facility] notes by Dr Weston), the preferred approach would be a delay in surgical treatment of the gallstones In the acute phase of this pancreatitis, we are managing her with bowel rest. Clear liquids were increased to pured diet today and she had heartburn after the first pured meal at lunch. The meal did not increase her abdominal pain. She does admit the heartburn was one of the symptoms right before getting this pancreatitis. Plan: We will continue to only slowly advance her diet, cont pureed food We will start Maalox as needed heartburn Give IV narcotic pain meds if needed Cont IV fluids, but will decrease rate today Because surgery is not imminent, we will continue with her daily oral anticoagulant. (2) Bilateral pulmonary embolism Conclusion/Plan: Patient presented with mid back pain in late October 2022 and the work-up by CTA showed that she has bilateral PE. She was started on Xarelto. She is being followed by heme-onc Dr. Oakes in [facility] clinic and he has seen her several times since then. He started a work-up to look for cause of an unprovoked PE. Thus far no malignancy has been found (but breast evaluation report is still pend ing). In reviewing Dr. Weston's notes, which I did, he recommends 3 to 6 months minimum of oral anticoagulant and would even prefer 1 year by continuing a prophylactic dose after the 6 months. Because the patient has had recurrent GI bleeds, (the latest GI bleed was just one episode a month ago, but she has been restarted on Xarelto), Dr. Weston has written that she might need a shortened course of about 3 months of Xarelto because of risks of GI bleeds. Plan: We will continue with her anticoagulant treatment. Because there is no Xarelto on formulary here, we are using the substitute of Eliquis at 5 mg twice daily (3) Hypothyroidism Conclusion/Plan: Labs were all reviewed. 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 Once this was treated with argon laser. Another was treated with cautery. Plan: Because she must be on DOAC, we need to closely watch for recurrence of GI blood loss. - Current Meds Current Meds: Current Medications Generic Name Dose Route Start Last Admin Trade Name Freq PRN Reason Stop Dose Admin Acetaminophen 650 mg 01/04/23 15:05 01/05/23 21:20 Acetaminophen 325 Mg Tablet PO 650 mg Q4HR PRN Administration Pain 1 to 4, or Fever Al Hydroxide/Mg Hydroxide 30 ml 01/06/23 14:23 01/06/23 16:37 Mag Hydrox/Al Hydrox/Simeth 30 Ml Udc PO 30 ml Q4HR PRN Administration Heartburn Allopurinol 100 mg 01/05/23 09:00 01/06/23 16:14 Allopurinol 100 Mg Tablet PO Not Given DAILY SAMANTHA Apixaban 5 mg 01/04/23 21:00 01/06/23 16:14 Apixaban 5 Mg Tablet PO Not Given BID SAMANTHA Brimonidine Tartrate 1 drops 01/04/23 21:00 01/06/23 16:14 Brimonidine 0.2% Ophth Drops 5 Ml EACHEYE Not Given BID SAMANTHA Famotidine 20 mg 01/04/23 21:00 01/06/23 16:15 Famotidine 20 Mg/2 Ml Vial IVP Not Given BID SAMANTHA Dextrose/Lactated Ringer's 1,000 mls @ 40 mls/hr 01/06/23 15:22 01/06/23 15:3 6 D5lr IV 40 mls/hr .Q25H SAMANTHA Administration Levothyroxine Sodium 88 mcg 01/05/23 07:00 01/06/23 05:30 Levothyroxine 88 Mcg Tablet PO 88 mcg QDAC SAMANTHA Administration Metoprolol Succinate 50 mg 01/05/23 09:00 01/06/23 16:15 Metoprolol Succinate 50 Mg Tablet PO Not Given DAILY SAMANTHA Ondansetron HCl 4 mg 01/03/23 22:45 01/05/23 05:17 Ondansetron 4 Mg/2 Ml Vial IVP 4 mg Q6HR PRN Administration Nausea / Vomiting Sodium Chloride 10 ml 01/04/23 15:05 01/05/23 05:22 Sodium Chloride Flush 0.9% 10 Ml Syringe IVP 10 ml PRN PRN Administration NEEDED PER PROVIDER ORDERS Sodium Chloride 10 ml 01/04/23 17:00 01/06/23 16:49 Sodium Chloride Flush 0.9% 10 Ml Syringe IVP Not Given 0100,0900,1700 SAMANTHA Solifenacin 10 mg 01/05/23 09:00 01/06/23 16:15 Solifenacin Succinate 5 Mg Tablet PO Not Given DAILY SAMANTHA - Lab Result Fish Bone Diagrams: 01/05/23 04:30 01/06/23 04:33 - Additional Planning My Orders: My Active Orders 01/06/23 Lunch DIET [Dysphagia - Puree] [DIET] 01/06/23 14:23 Mag Hydrox/Al Hydrox/Simeth [Mylanta Plus] 30 ml PO Q4HR PRN 01/06/23 15:22 Dextrose 5%-Lactated Ringers [D5lr] 1,000 ml IV 40 mls/hr 01/07/23 05:00 BMP - BASIC METABOLIC PANEL [CHEM] DAILYLAB CBC - COMP BLD CT W/AUTO DIFF [HEME] DAILYLAB 01/08/23 05:00 BMP - BASIC METABOLIC PANEL [CHEM] DAILYLAB 01/09/23 05:00 BMP - BASIC METABOLIC PANEL [CHEM] DAILYLAB Subjective - Subjective Patient Reports: Resting Comfortably, Heartburn (aftyer her first pureed meal today) Objective Vital Signs: Vital Signs - 24 hr 01/05/23 01/06/23 01/06/23 23:10 07:41 15:43 Temperature 36.4 C L 36.5 C 36.4 C L Heart Rate [ 59 L 56 L 54 L Brachial] Respiratory 20 12 12 Rate Blood Pressure 127/53 L 148/66 H 152/67 H [Right Brachial artery] O2 Saturation 98 97 100 Oxygen O2 Source Room air Oxygen Flow Rate 1 I&O (Last 24 Hrs): Intake and Output Totals x24h 01/04/23 01/05/23 01/06/23 23:59 23:59 23:59 Intake Total 9009.314 2511.332 2969.719 Balance 0594.882 5122.332 2969.719 General: Alert, Oriented x3 HEENT: Mucous membr. moist/pink, Other (Exophthalmos noted) Neck: Supple, No JVD Neuro: Alert, Non Focal Cardiovascular: Regular rate, No murmurs Respiratory: No respiratory distress Abdomen: Normal bowel sounds, Soft, No tenderness, No masses Extremities: No clubbing, No edema, No tenderness/swelling - Results Results: Laboratory Results WBC 3.7 x10^3/uL (4.8-10.8) L 01/05/23 04:30 RBC 3.18 10^6/uL (4.20-5.40) L 01/05/23 04:30 Hgb 10.3 g/dL (12.0-16.0) L 01/05/23 04:30 Hct 32.8 % (37.0-47.0) L 01/05/23 04:30 MCV 103.1 fL (81.0-99.0) H 01/05/23 04:30 MCH 32.4 pg (27.0-31.0) H 01/05/23 04:30 MCHC 31.4 g/dL (32.0-36.0) L 01/05/23 04:30 RDW 12.5 % (12.0-15.0) 01/05/23 04:30 Plt Count 156 10^3/uL (130-450) 01/05/23 04:30 MPV 11.7 fL (7.9-10.8) H 01/05/23 04:30 Neut # (Auto) 1.8 10^3/uL (1.5-6.6) 01/05/23 04:30 Lymph # (Auto) 1.4 10^3/uL (1.5-3.5) L 01/05/23 04:30 Keith # (Auto) 0.4 10^3/uL (0.0-1.0) 01/05/23 04:30 Eos # (Auto) 0.1 10^3/uL (0.0-0.7) 01/05/23 04:30 Baso # (Auto) 0.0 10^3/uL (0.0-0.1) 01/05/23 04:30 Absolute Nucleated RBC 0.00 x10^3/uL 01/05/23 04:30 Nucleated RBC % 0.0 /100WBC 01/05/23 04:30 Sodium 143 mmol/L (135-145) 01/06/23 04:33 Potassium 3.6 mmol/L (3.5-5.0) 01/06/23 04:33 Chloride 114 mmol/L (101-111) H 01/06/23 04:33 Carbon Dioxide 25 mmol/L (21-32) 01/06/23 04:33 Anion Gap 4.0 (6-13) L 01/06/23 04:33 BUN 13 mg/dL (6-20) 01/06/23 04:33 Creatinine 0.8 mg/dL (0.4-1.0) 01/06/23 04:33 Estimated GFR (MDRD) 68 (>89) L 01/06/23 04:33 Glucose 109 mg/dL (70-100) H 01/06/23 04:33 Calcium 8.8 mg/dL (8.5-10.3) 01/06/23 04:33 Phosphorus 2.9 mg/dL (2.5-4.6) 01/05/23 04:30 Magnesium 2.0 mg/dL (1.7-2.8) 01/05/23 04:30 Total Bilirubin 0.8 mg/dL (0.2-1.0) 01/05/23 04:30 AST 26 IU/L (10-42) 01/05/23 04:30 ALT 15 IU/L (10-60) 01/05/23 04:30 Alkaline Phosphatase 61 IU/L (42-121) 01/05/23 04:30 Troponin I High Sens 8.0 ng/L (2.3-14.8) 01/03/23 18:14 Total Protein 5.3 g/dL (6.7-8.2) L 01/05/23 04:30 Albumin 3.1 g/dL (3.2-5.5) L 01/05/23 04:30 Globulin 2.2 g/dL (2.1-4.2) 01/05/23 04:30 Albumin/Globulin Ratio 1.4 (1.0-2.2) 01/05/23 04:30 Lipase 33 U/L (22-51) 01/06/23 04:33 Vitamin B12 397 pg/mL (180-914) 01/06/23 04:33 TSH 5.28 uIU/mL (0.34-5.60) 01/05/23 04:30 - Procedures Procedures: Procedures DRAINAGE OF PELVIC CAVITY WITH DRAIN DEV, OPEN APPROACH (12/25/20) EXCISION OF CECUM, PERCUTANEOUS ENDOSCOPIC APPROACH (12/25/20) EXCISION OF DUODENUM, ENDO, DIAGN (08/06/20) EXCISION OF ESOPHAGUS, ENDO, DIAGN (08/06/20) EXCISION OF STOMACH, ENDO, DIAGN (08/06/20) EXCISION OF STOMACH, PYLORUS, ENDO, DIAGN (08/06/20) INSPECTION OF PELVIC CAVITY, PERC ENDO APPROACH (12/25/20) IRRIGATION OF PERITONEAL CAVITY USING IRRIGAT, PERC APPROACH (12/25/20) REPLACEMENT OF LEFT LENS WITH SYNTH SUB, PERC APPROACH (12/15/15) REPLACEMENT OF RIGHT LENS WITH SYNTH SUB, PERC APPROACH (12/29/15)
[2023-01-07 05:00] LABS: BASOPHILS % (AUTO) 0.5 %; EOSINOPHILS # (AUTO) 0.1 10^3/uL (0.0-0.7); EOSINOPHILS % (AUTO) 2.7 %; HCT - HEMATOCRIT 34.7 % (37.0-47.0); LYMPHOCYTES # (AUTO) 1.2 10^3/uL (1.5-3.5); LYMPHOCYTES % (AUTO) 28.3 %; MEAN CORPUSCULAR HEMOGLOBIN 32.4 pg (27.0-31.0); MEAN CORPUSCULAR HGB CONC 31.7 g/dL (32.0-36.0); MEAN CORPUSCULAR VOLUME 102.4 fL (81.0-99.0); MEAN PLATELET VOLUME 11.4 fL (7.9-10.8); MONOCYTES # (AUTO) 0.5 10^3/uL (0.0-1.0); MONOCYTES % (AUTO) 12.6 %; NEUTROPHILS # (AUTO) 2.3 10^3/uL (1.5-6.6); NEUTROPHILS % (AUTO) 55.7 %; PLT - PLATELET COUNT 153 10^3/uL (130-450); RED BLOOD COUNT 3.39 10^6/uL (4.20-5.40); RED CELL DISTRIBUTION WIDTH 12.2 % (12.0-15.0); WHITE BLOOD COUNT 4.1 x10^3/uL (4.8-10.8)
[2023-01-07 05:08] LABS: CALCIUM 8.9 mg/dL (8.5-10.3); CREATININE 0.9 mg/dL (0.4-1.0)
[2023-01-07] MEDS: LEVOTHYROXINE 88 MCG TABLET PO SCH (05:51)
[2023-01-07] MEDS: allopurinoL 100 MG TABLET PO SCH (08:36)
[2023-01-07] MEDS: APIXABAN 5 MG TABLET PO SCH (08:36)
[2023-01-07] MEDS: FAMOTIDINE 20 MG/2 ML VIAL IVP SCH (08:36)
[2023-01-07] MEDS: METOPROLOL SUCCINATE 50 MG TABLET PO SCH (08:37)
[2023-01-07] MEDS: BRIMONIDINE 0.2% OPHTH DROPS 5 ML EACHEYE SCH (08:37)
[2023-01-07] MEDS: SOLIFENACIN SUCCINATE 5 MG TABLET PO SCH (08:40)
[2023-01-07] MEDS: SODIUM CHLORIDE FLUSH 0.9% 10 ML SYRINGE IVP SCH (09:04)
--- NOTE | 2023-01-07 13:39 | Discharge Plan ---
Discharge Plan Problem Reviewed?: Yes Disposition: Home, Self Care Condition: Stable Prescriptions: ONDANSETRON ODT Prepack 2 [ZOFRAN ODT Prepack 2] 4 mg TL Q6H PRN #20 tablet PRN Reason: Nausea / Vomiting Diet: Soft (LOW FAT) Activity Restrictions: Activity as Tolerated Instruction Topics: Gallstones, Pancreatitis Health Concerns: You were hospitalized due to abdominal pain, nausea and vomiting that was caused by pancreatitis. The pancreatitis was caused by gallstones. The pancreas was allowed to rest and you are being discharged home today and advised to stay on a soft, low-fat diet. Please stay well-hydrated. The gallstones should be dealt with in the next several weeks. I would recommend that you see a General Surgeon as an outpatient to discuss timing of taking out your gallbladder or the gallstones, which ever the surgeon recommends. Please call the office of Dr. Allen Porter, to make an appointment at [phone], his office is at [address] [place] [address], in [place]. I have let him know today, that you would be calling for an appointment. You may resume all your usual pre-Hospital medications. I have prescribed Zofran lozenges to take, if you should develop nausea again. The prescription was electronically sent to your [facility] pharmacy in [place]. Plan of Treatment: As above. Care Goals: Improvement in symptoms and stabilization are the goals. Assessment: The patient understands and is agreeable with the plan. Additional Instructions or Follow Up instructions: If you should get recurring symptoms, please go back to taking a clear liquid diet, use the Zofran tablets that I have prescribed for nausea, and you can take Tylenol for pain. If the symptoms are not tolerable and you cannot handle them by staying home, call your primary care provider or Dr. Porter' office for advice, or come to the ER. No Smoking: If you smoke, Please STOP! Call for help. Follow-up with: Davin Pineda MD [Primary Care Provider] - Allen Porter MD [Provider Admit Priv/Credential] -
--- NOTE | 2023-01-07 13:44 | DISCHARGE SUMMARY ---
Discharge Summary Admit Date: 01/04/23 Discharge Date: 01/07/23 Discharging Provider: Dr Julia Tinajero Primary Care Provider: Dr Davin Pineda Code Status: Attempt Resuscitation Condition at Discharge: Stable Discharge Disposition: 01 Home, Self Care - HPI History of Present Illness: This is an 87-year-old white female with a history of bilateral pulmonary emboli diagnosed 2 months ago, has been on Xarelto. 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 One month ago after starting her Xarelto for PE, she again had GI bleed and was found to have an AVM on upper endoscopy which was treated and she has been restarted on her Xarelto several weeks ago. The patient is followed by Dr. Weston in heme-onc [facility] clinic here. He has done a work-up to look for underlying malignancy as the cause for the unprovoked PEs; Abdominal CT and thoracic imaging have been unremarkable and breast work-up is done but results are pending. The patient presented to the ED last night, after a 1 day complaint of sharp epigastric pain radiating to the right upper quadrant and then up into her chest. Work-up in the ED shows that she has gallstones and also has pancreatitis with an elevated lipase level. The ED provider reached out to the general surgeon who advised that she have MRCP and this showed no evidence of obstruction. The patient's repeat lipase level has increased from 660 up to 1560. She has started to receive IV pain meds in the ER as well as IV fluids. The ED provider reached out to me on the Hospitalist Team and we discussed this patient. She will be admitted for treating gallstone-induced pancreatitis. - HOSPITAL COURSE Hospital Course: (1) Acute gallstone pancreatitis She was managed with iv fluids, iv pain meds and anti-emetics, and bowel rest, NPO then clear liquids were increased to pured diet and she had heartburn after the first pured meal. The meal did not increase her abdominal pain. She admitted that heartburn was one of the symptoms right before getting this p ancreatitis. Her Lipase level dropped. Because surgery was not imminent, we continued her daily oral anticoagulant. She was discharged home tolerating a soft, low fat diet, advised to remain on that and to be seen as an outpatient for elective GB management. If there was recurrence, she was advised to restart clear liquids and she was prescribed TL Zofran to use prn. (2) Bilateral pulmonary embolism Patient presented with mid back pain in late October 2022 and the work-up by CTA showed that she has bilateral PE. She was started on Xarelto. She is being followed by heme-onc Dr. Weston in [facility] clinic and he has started a work-up to look for (malignant ) cause of an unprovoked PE. In reviewing Dr. Weston's notes, he recommends 3 to 6 months minimum of oral anticoagulant and would even prefer 1 year by continuing a prophylactic dose after the 6 months. Because the patient has had recurrent GI bleeds, (the latest GI bleed was just one month ago, but she has been restarted on Xarelto), Dr. Weston has written that she might need a shortened course of about 3 months of Xarelto because of risks of GI bleeds. We continued a DOAC, but because there is no Xarelto on formulary here, we ordered a substitute of Eliquis at 5 mg BID. Her Xarelto was to be resumed after discha rge home. (3) Hypothyroidism Her TSH is in a good range, 5.28. 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 One time this was treated with argon laser. Another was treated with cautery. Because she must be on DOAC, stopping her medication for future elective gallbladder surgery needs to be planned and managed. - ALLERGIES Allergies/Adverse Reactions: Allergies Allergy/AdvReac Type Severity Reaction Status Date / Time meperidine HCl * Allergy Intermediate Hives Verified 11/08/22 21:16 [From Demerol] Iodine and Iodide Containing Allergy Mild Rash Verified 11/08/22 21:16 Produc - MEDICATIONS Home Medications: Ambulatory Orders Medication Instructions Recorded Confirmed Tolterodine Tartrate [Detrol LA] 2 mg PO DAILY 01/11/15 01/05/23 Potassium Chloride 10 meq PO DAILY 08/05/20 01/05/23 Valsartan [Diovan] 80 mg PO DAILY 08/05/20 01/05/23 Levothyroxine Sodium [Synthroid] 88 mcg PO QDAC 12/25/20 01/05/23 Brimonidine 0.1% Ophth Drops 1 drops OPTH BID 06/01/21 01/05/23 [Alphagan P 0.1% Ophth Drops] Metoprolol Succinate [Toprol Xl] 50 mg PO DAILY 08/01/21 01/05/23 Pantoprazole [Protonix] 40 mg PO DAILY 01/04/23 01/05/23 Rivaroxaban [Xarelto] 20 mg PO DAILY 01/04/23 01/05/23 allopurinoL [Zyloprim] 100 mg PO DAILY 01/04/23 01/05/23 Ascorbic Acid [Vitamin C] 1,000 mg PO DAILY 01/05/23 01/05/23 Biotin 5 mg PO DAILY 01/05/23 01/05/23 Calcium/Magnesium/Vitamin D3 1 each PO DAILY 01/05/23 01/05/23 [Pan-Mag Complex 300-150 mg Tab] Cholecalciferol [Vitamin D3] 25 mcg PO DAILY 01/05/23 01/05/23 Furosemide [Lasix] 20 mg PO BID 01/05/23 01/05/23 Lactobacillus Combination No.4 1 each PO DAILY 01/05/23 01/05/23 [Probiotic] [place]-3 Acid Ethyl Esters 1 gm PO DAILY 01/05/23 01/05/23 valACYclovir [Valtrex] 1,000 mg PO BID PRN 01/05/23 01/05/23 ONDANSETRON ODT Prepack 2 [ZOFRAN 4 mg TL Q6H PRN #20 tablet 01/07/23 ODT Prepack 2] - PHYSICAL EXAM AT DISCHARGE General Appearance: positive: No acute distress, Alert Eyes Bilateral: positive: Other (Exophthalmous) ENT: positive: ENT inspection nml, No signs of dehydration Neck: positive: Nml inspection, No JVD Respiratory: positive: No respiratory distress, Breath sounds nml Cardiovascular: positive: Regular rate & rhythm, No murmur Abdomen: positive: Non-tender, Nml bowel sounds, No distention Skin: positive: Warm, Dry Extremities: positive: Non-tender, No pedal edema Neurologic/Psychiatric: positive: Oriented x3, Motor nml - LABS Result Diagrams: 01/07/23 04:28 03/26/23 04:28 - DIAGNOSTIC IMAGING Diagnostic Imaging Results: Final report reviewed - FOLLOW UP Follow Up: See General surgeon as an outpatient, recommended to see Dr. Allen Porter in the next several weeks, to plan management of her gallstones. See Dr Weston to address when and for how long the DOAC needs to be stopped for that surgery. See PCP for a hospital follow-up office visit. - TIME SPENT Time Spent in Discharge (Minutes): 25
[2023-01-07 14:39] VITALS: BP 179/79
== END 2023-01-07 14:15 | disposition home or self-care (01) | DRG 438 ==
LOC: ED 17:56 → MS3 01-04 15:05
PROVIDERS: ADMIT Internal Medicine; ATTEND Internal Medicine
DX: K85.10 Biliary acute pancreatitis without necrosis or infection (principal); K80.20 Calculus of gallbladder without cholecystitis without obstruction; I26.99 Other pulmonary embolism without acute cor pulmonale; Z79.01 Long term (current) use of anticoagulants; Z86.711 Personal history of pulmonary embolism; E03.9 Hypothyroidism, unspecified; Z87.19 Personal history of other diseases of the digestive system; I10 Essential (primary) hypertension; K21.9 Gastro-esophageal reflux disease without esophagitis; M10.9 Gout, unspecified; M19.90 Unspecified osteoarthritis, unspecified site
CPT/HCPCS: 36415; 71045; 74177; 74183; 76705; 80048; 80053; 82607; 83690; 83735; 84100; 84443; 84484; 85025; 93005; 96374; 96375; 99284; 99285; A9270; A9585; J1170; J1200; Q9967

== ENCOUNTER 2023-01-17 05:31 | Emergency (ER) | payer MEDICARE, OTHER ==
[2023-01-17 05:41] VITALS: BP 194/84
--- NOTE | 2023-01-17 06:09 | ED Physician Documentation ---
PD HPI NECK PAIN - Stated complaint Stated Complaint: NECK PX - Chief complaint Chief Complaint: Heent - History obtained from History obtained from: Patient - Additional information Additional information: HPI from patient. Patient complains of neck pain. This began 2 days ago when she woke up in the morning, and initially was limited to the left posterolateral aspect of her neck. It has been constant, and has gradually progressed in intensity as well as area of involvement and, at the time of this evaluation, her neck pain is mid to lower neck, posteriorly and bilaterally without any anterior involvement. The pain is distinctly worse with movement, ameliorated with rest. The exacerbation is with movement in any direction (turning head to either side, extension, flexion). She denies injury, denies fever, denies history of similar symptoms. Patient recently was inpatient at [facility] for gallstone pancreatitis, she has not had any recurrence of symptoms associated with this diagnosis. Patient has been taking Tylenol for the neck pain which initially was providing some degree of relief, but is no longer helping. Review of Systems Constitutional: denies: Fever Throat: denies: Sore throat Cardiac: denies: Chest pain / pressure Respiratory: denies: Dyspnea GI: denies: Abdominal Pain Skin: denies: Rash Musculoskeletal: reports: Neck pain. 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 HEENT: Cataracts - Present Medications Home Medications: Ambulatory Orders Medication Instructions Recorded Confirmed Tolterodine Tartrate [Detrol LA] 2 mg PO DAILY 01/11/15 01/17/23 Potassium Chloride 10 meq PO DAILY 08/05/20 01/17/23 Valsartan [Diovan] 80 mg PO DAILY 08/05/20 01/17/23 Levothyroxine Sodium [Synthroid] 88 mcg PO QDAC 12/25/20 01/17/23 Brimonidine 0.1% Ophth Drops 1 drops OPTH BID 06/01/21 01/17/23 [Alphagan P 0.1% Ophth Drops] Metoprolol Succinate [Toprol Xl] 50 mg PO DAILY 08/01/21 01/17/23 Pantoprazole [Protonix] 40 mg PO DAILY 01/04/23 01/17/23 Rivaroxaban [Xarelto] 20 mg PO DAILY 01/04/23 01/17/23 allopurinoL [Zyloprim] 100 mg PO DAILY 01/04/23 01/17/23 Ascorbic Acid [Vitamin C] 1,000 mg PO DAILY 01/05/23 01/17/23 Biotin 5 mg PO DAILY 01/05/23 01/17/23 Calcium/Magnesium/Vitamin D3 1 each PO DAILY 01/05/23 01/17/23 [Pan-Mag Complex 300-150 mg Tab] Cholecalciferol [Vitamin D3] 25 mcg PO DAILY 01/05/23 01/17/23 Furosemide [Lasix] 20 mg PO BID 01/05/23 01/17/23 Lactobacillus Combination No.4 1 each PO DAILY 01/05/23 01/05/23 [Probiotic] [place]-3 Acid Ethyl Esters 1 gm PO DAILY 01/05/23 01/17/23 HYDROcod/ACETAM 5/325 [[place] 5/325] 1 ea PO Q6H PRN #15 tablet 01/17/23 HYDROcod/ACETAM 5/325 [[place] 5/325] 1 ea PO Q6H PRN #18 tablet 01/17/23 - Allergies Allergies/Adverse Reactions: Allergies Allergy/AdvReac Type Severity Reaction Status Date / Time meperidine HCl * Allergy Intermediate Hives Verified 01/17/23 05:41 [From Demerol] Iodine and Iodide Containing Allergy Mild Rash Verified 01/17/23 05:41 Produc - Social History Does the pt smoke?: No Smoking Status: Never smoker Does the pt drink ETOH?: Yes Does the pt have substance abuse?: No - Immunizations Immunizations are current?: Yes - POLST Patient has POLST: No PD ED PE NORMAL - Vitals Vital signs reviewed: Yes - General General: Alert and oriented X 3, No acute distress (NAD at rest although she maintains her neck in a neutral position; movement does reproduce her pain), Well developed/nourished - Neck Neck: No bony TTP, No adenopathy - Cardiac Cardiac: RRR - Respiratory Respiratory: No respiratory distress, Clear bilaterally - Neuro Neuro: Alert and oriented X 3, No motor deficit, No sensory deficit PD ED PE EXPANDED - Cardiac Cardiac: Murmur Present (2/6 HERMINIO right second ICS) Results - Vitals Vitals: Oxygen O2 Source Room air PD Medical Decision Making - ED course Complexity details: considered differential, d/w patient ED course: Patient's history and physical exam are consistent with musculoskeletal etiology, and without recent injury, midline tenderness, numbness/weakness, emergent testing including imaging is not indicated at this time. She is given 10 mg Flexeril p.o. and 5 mg oxycodone p.o. Unfortunately, on reevaluation, she says her pain seems worse after these medications. Thus, I ordered a another dose of 5 mg oxycodone p.o., as well as 5 mg of diazepam (for its muscle accident properties). Care of patient is turned over to the oncoming emergency department physician (Dr. Victoria), Pending reevaluation after these medications to see if they have provided adequate relief. Departure - Departure Disposition: 01 Home, Self Care Clinical Impression: Neck pain, acute Condition: Stable Instructions: ED Neck Pain No Trauma Follow-Up: MARY HANNA MD [Provider Admit Priv/Credential] - Prescriptions: HYDROcod/ACETAM 5/325 [[place] 5/325] 1 ea PO Q6H PRN #15 tablet PRN Reason: Pain HYDROcod/ACETAM 5/325 [[place] 5/325] 1 ea PO Q6H PRN #18 tablet PRN Reason: Pain Comments: Its unclear the cause of your pain. It seems in a muscular area. I would suggest heat and stretching for the neck and using some Tylenol 650 mg 4 times daily for the next several days to week. He can substitute hydrocodone/acetaminophen if needed for worse pain at times. Recheck if not improving well over the next several days. Since you are on a blood thinner, I would not suggest adding any NSAIDs. Recheck if not better over the next few days or if you develop any other symptoms such as rash or blisters numbness or tingling or other concerns. Discharge Date/Time: 01/17/23 09:47
[2023-01-17] MEDS ORDERED: CYCLOBENZAPRINE 10 MG TABLET PO STA (06:24)
[2023-01-17] MEDS ORDERED: oxyCODONE 5 MG TABLET PO STA ×2 (06:24→08:00)
[2023-01-17] MEDS ORDERED: diazePAM 5 MG TABLET PO STA (08:00)
--- NOTE | 2023-01-17 23:34 | ED Physician Documentation ---
ED Addendum - Addendum Addendum: 01/17/23 23:31 Patient with right neck pain without injury. She is tender at trapezius insertion to right lateral neck. not tender midline. Had been given pO meds with some sleepiness from it but not really improved the pain. She does have a locally tender spot without redness, rash. I offered a trigger point injection at the muscle insertion area. Lidocain 1% with epi 2 ml injected with 27g needle at the spot of most tenderness without complications. The pain was improving after few minutes better than with the po pain meds. She has appt at [facility] clinic at 10:30 so is discharged improved so that she can see specialist as planned. Disposition: discharged home in stable condition Diagnosis: right upper neck pain, uncertain etiology
== END 2023-01-17 09:47 | disposition home or self-care (01) ==
LOC: ED 05:31
DX: M54.2 Cervicalgia (principal)
CPT/HCPCS: 99282; 99283; A9270

== ENCOUNTER 2023-02-12 12:47 | Outpatient (CLI) | payer MEDICARE, OTHER ==
--- NOTE | 2023-02-12 17:36 | XRAY Report ---
PROCEDURE: Cervical Spine Comp w/Flex/Ext INDICATIONS: OTHER MUSCLE SPASM TECHNIQUE: 7 views of the cervical spine were acquired. COMPARISON: None. FINDINGS: Bones: No fractures or dislocations to the T1 level. No suspicious bony lesions. Disc space narrowi ng and hypertrophic facet joint noted in the mid cervical spine. Oblique images show at least moderat e foraminal stenosis on the left at C4-5 and C5-6, although positioning is limited. Flexion and exten [place] imaging shows no evidence of segmental instability Soft tissues: Prevertebral soft tissues are normal in thickness. 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
== END 2023-02-12 12:48 | disposition home or self-care (01) ==
LOC: DI 12:47
PROVIDERS: ATTEND Family Medicine
DX: M62.838 Other muscle spasm (principal); M50.321 Other cervical disc degeneration at C4-C5 level; M48.02 Spinal stenosis, cervical region; M47.812 Spondylosis without myelopathy or radiculopathy, cervical region

== ENCOUNTER 2023-03-23 10:55 | Outpatient (CLI) | payer MEDICARE, OTHER ==
[2023-03-23 11:20] LABS: BASOPHILS # (AUTO) 0.1 10^3/uL (0.0-0.1); EOSINOPHILS # (AUTO) 0.1 10^3/uL (0.0-0.7); EOSINOPHILS % (AUTO) 1.4 %; HCT - HEMATOCRIT 36.7 % (37.0-47.0); HGB - HEMOGLOBIN 11.9 g/dL (12.0-16.0); LYMPHOCYTES # (AUTO) 1.4 10^3/uL (1.5-3.5); LYMPHOCYTES % (AUTO) 26.7 %; MEAN CORPUSCULAR HEMOGLOBIN 29.7 pg (27.0-31.0); MEAN CORPUSCULAR HGB CONC 32.4 g/dL (32.0-36.0); MEAN CORPUSCULAR VOLUME 91.5 fL (81.0-99.0); MEAN PLATELET VOLUME 10.3 fL (7.9-10.8); MONOCYTES # (AUTO) 0.6 10^3/uL (0.0-1.0); MONOCYTES % (AUTO) 12.5 %; PLT - PLATELET COUNT 214 10^3/uL (130-450); RED BLOOD COUNT 4.01 10^6/uL (4.20-5.40); RED CELL DISTRIBUTION WIDTH 14.1 % (12.0-15.0); WHITE BLOOD COUNT 5.1 x10^3/uL (4.8-10.8)
[2023-03-23 11:27] LABS: ALBUMIN 4.1 g/dL (3.2-5.5); ALBUMIN/GLOBULIN RATIO 1.1 (1.0-2.2); ALKALINE PHOSPHATASE 80 IU/L (42-121); ALT ALANINE AMINOTRANSFERASE 14 IU/L (10-60); AST ASPARTATE AMINOTRANSFERASE 23 IU/L (10-42); BILIRUBIN,TOTAL 0.6 mg/dL (0.2-1.0); BUN - BLOOD UREA NITROGEN 44 mg/dL (6-20); CALCIUM 9.6 mg/dL (8.5-10.3); CARBON DIOXIDE - CO2 29 mmol/L (21-32); CHLORIDE 105 mmol/L (101-111); CHOL/HDL RATIO 2.1 (<4.4); CHOLESTEROL 209 mg/dL; CREATININE 1.2 mg/dL (0.4-1.0); GFR - MDRD 42 (>89); GLUCOSE 110 mg/dL (70-100); HDL CHOLESTEROL 101 mg/dL; LDL CHOLESTEROL,CALCULATED 95 mg/dL; LDL/HDL RATIO 0.9 (<4.4); POTASSIUM 3.9 mmol/L (3.5-5.0); SODIUM 142 mmol/L (135-145); TOTAL PROTEIN 7.7 g/dL (6.7-8.2); TRIGLYCERIDES 67 mg/dL; URIC ACID 6.4 mg/dL (2.6-7.2); VLDL CHOLESTEROL 13 mg/dL
[2023-03-23 11:39] LABS: THYROID STIMULATING HORMONE 9.22 uIU/mL (0.34-5.60)
[2023-03-23 12:09] LABS: FREE T4 (FREE THYROXINE) 1.17 ng/dL (0.58-1.64)
[2023-03-23 12:26] LABS: ESTIMATED AVERAGE GLUCOSE 128 mg/dL (70-100); HEMOGLOBIN A1c% 6.1 % (4.27-6.07)
== END 2023-03-23 10:56 | disposition home or self-care (01) ==
LOC: LAB 10:55
PROVIDERS: ATTEND Family Medicine
DX: E03.9 Hypothyroidism, unspecified (principal); I27.20 Pulmonary hypertension, unspecified; R06.09 Other forms of dyspnea; R73.9 Hyperglycemia, unspecified; K51.90 Ulcerative colitis, unspecified, without complications; M54.16 Radiculopathy, lumbar region; E79.0 Hyperuricemia without signs of inflammatory arthritis and tophaceous disease; R60.0 Localized edema; K21.9 Gastro-esophageal reflux disease without esophagitis
CPT/HCPCS: 36415; 80053; 80061; 83036; 83721; 83880; 84439; 84443; 84550; 85025

== ENCOUNTER 2023-08-03 08:06 | Outpatient (CLI) | payer MEDICARE, OTHER ==
[2023-08-03 08:36] LABS: ESTIMATED AVERAGE GLUCOSE 117 mg/dL (70-100); HEMOGLOBIN A1c% 5.7 % (4.27-6.07)
[2023-08-03 08:55] LABS: THYROID STIMULATING HORMONE 0.23 uIU/mL (0.34-5.60)
[2023-08-03 09:03] LABS: CALCIUM 9.8 mg/dL (8.5-10.3); CREATININE 1.1 mg/dL (0.6-1.3); POTASSIUM 3.5 mmol/L (3.5-4.5)
== END 2023-08-03 08:07 | disposition home or self-care (01) ==
LOC: LAB 08:06
PROVIDERS: ATTEND Family Medicine
DX: K51.90 Ulcerative colitis, unspecified, without complications (principal); D50.9 Iron deficiency anemia, unspecified; E03.9 Hypothyroidism, unspecified; R73.03 Prediabetes
CPT/HCPCS: 36415; 80048; 83036; 84439; 84443; 84481

== ENCOUNTER 2023-08-03 15:54 | Emergency (ER) | payer MEDICARE, OTHER ==
[2023-08-03 16:41] LABS: EOSINOPHILS # (AUTO) 0.1 10^3/uL (0.0-0.7); EOSINOPHILS % (AUTO) 1.7 %; HCT - HEMATOCRIT 38.8 % (37.0-47.0); HGB - HEMOGLOBIN 12.9 g/dL (12.0-16.0); LYMPHOCYTES # (AUTO) 1.2 10^3/uL (1.5-3.5); LYMPHOCYTES % (AUTO) 28.9 %; MEAN CORPUSCULAR HEMOGLOBIN 32.8 pg (27.0-31.0); MEAN CORPUSCULAR HGB CONC 33.2 g/dL (32.0-36.0); MEAN CORPUSCULAR VOLUME 98.7 fL (81.0-99.0); MEAN PLATELET VOLUME 10.4 fL (7.9-10.8); MONOCYTES # (AUTO) 0.9 10^3/uL (0.0-1.0); MONOCYTES % (AUTO) 20.6 %; NEUTROPHILS % (AUTO) 47.3 %; PLT - PLATELET COUNT 158 10^3/uL (130-450); RED BLOOD COUNT 3.93 10^6/uL (4.20-5.40); RED CELL DISTRIBUTION WIDTH 15.7 % (12.0-15.0); WHITE BLOOD COUNT 4.2 x10^3/uL (4.8-10.8)
[2023-08-03 16:58] LABS: ALBUMIN 4.4 g/dL (3.2-5.5); BILIRUBIN,TOTAL 0.4 mg/dL (0.2-1.0); CALCIUM 9.7 mg/dL (8.5-10.3); CREATININE 1.1 mg/dL (0.6-1.3); POTASSIUM 3.4 mmol/L (3.5-4.5); TOTAL PROTEIN 6.6 g/dL (6.4-8.9)
--- NOTE | 2023-08-03 19:31 | ED Physician Documentation ---
PD HPI ABD PAIN - Stated complaint Stated Complaint: ABD PX/N/V - Chief complaint Chief Complaint: Abd Pain - History obtained from History obtained from: Patient - Additional information Additional information: She had a gallstone pancreatitis back in December. At that time she was anticoagulated so surgery was deferred. She followed up with the surgeon, Dr. Porter in the office who felt that given her age I think given that it was a single episode did not at that time recommend cholecystectomy unless she had recurrence. She had severe epigastric pain today for 20 minutes that resolved after vomiting that was reminiscent of prior gallstone pancreatitis. She has no pain now. 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 HEENT: Cataracts - Present Medications Home Medications: Ambulatory Orders Medication Instructions Recorded Confirmed Tolterodine Tartrate [Detrol LA] 2 mg PO DAILY 01/11/15 07/04/23 Potassium Chloride 10 meq PO DAILY 08/05/20 07/04/23 Valsartan [Diovan] 80 mg PO DAILY 08/05/20 07/04/23 Levothyroxine Sodium [Synthroid] 88 mcg PO QDAC 12/25/20 07/04/23 Brimonidine 0.1% Ophth Drops 1 drops OPTH BID 06/01/21 07/04/23 [Alphagan P 0.1% Ophth Drops] Metoprolol Succinate [Toprol Xl] 50 mg PO DAILY 08/01/21 07/04/23 Pantoprazole [Protonix] 40 mg PO DAILY 01/04/23 07/04/23 Rivaroxaban [Xarelto] 20 mg PO DAILY 01/04/23 07/04/23 allopurinoL [Zyloprim] 100 mg PO DAILY 01/04/23 07/04/23 Ascorbic Acid [Vitamin C] 1,000 mg PO DAILY 01/05/23 07/04/23 Biotin 5 mg PO DAILY 01/05/23 07/04/23 Calcium/Magnesium/Vitamin D3 1 each PO DAILY 01/05/23 07/04/23 [Pan-Mag Complex 300-150 mg Tab] Cholecalciferol [Vitamin D3] 25 mcg PO DAILY 01/05/23 07/04/23 Furosemide [Lasix] 20 mg PO BID 01/05/23 07/04/23 Lactobacillus Combination No.4 1 each PO DAILY 01/05/23 07/04/23 [Probiotic] [place]-3 Acid Ethyl Esters 1 gm PO DAILY 01/05/23 07/04/23 HYDROcod/ACETAM 5/325 [[place] 5/325] 1 ea PO Q6H PRN #15 tablet 01/17/23 07/04/23 HYDROcod/ACETAM 5/325 [[place] 5/325] 1 ea PO Q6H PRN #18 tablet 01/17/23 07/04/23 - Allergies Allergies/Adverse Reactions: Allergies Allergy/AdvReac Type Severity Reaction Status Date / Time meperidine HCl * Allergy Intermediate Hives Verified 08/03/23 19:20 [From Demerol] Iodine and Iodide Containing Allergy Mild Rash Verified 08/03/23 19:20 Produc - Social History Does the pt smoke?: No Smoking Status: Never smoker Does the pt drink ETOH?: Yes Does the pt have substance abuse?: No - Immunizations Immunizations are current?: Yes - POLST Patient has POLST: No PD ED PE NORMAL - Vitals Vital signs reviewed: Yes - General General: Alert and oriented X 3, No acute distress - Abdomen Abdomen: Normal bowel sounds, Soft, Non tender - Neuro Neuro: Alert and oriented X 3, Normal speech Results - Vitals Vitals: Vital Signs - 24 hr 08/03/23 16:10 Temperature 36.8 C Heart Rate 58 L Respiratory 16 Rate Blood Pressure 152/63 H O2 Saturation 98 Oxygen O2 Source Room air - Labs Labs: Laboratory Tests 08/03/23 08/03/23 08/03/23 16:37 16:37 19:22 WBC 4.2 L RBC 3.93 L Hgb 12.9 Hct 38.8 MCV 98.7 MCH 32.8 H MCHC 33.2 RDW 15.7 H Plt Count 158 MPV 10.4 Neut # (Auto) 2.0 Lymph # (Auto) 1.2 L [place] # (Auto) 0.9 Eos # (Auto) 0.1 Baso # (Auto) 0.0 Absolute Nucleated RBC 0.00 Nucleated RBC % 0.0 Sodium 142 Potassium 3.4 L Chloride 106 Carbon Dioxide 29 Anion Gap 7.0 BUN 37 H Creatinine 1.1 Estimated GFR (MDRD) 47 L Glucose 109 H Calcium 9.7 Total Bilirubin 0.4 AST 26 ALT 16 Alkaline Phosphatase 112 Total Protein 6.6 Albumin 4.4 Globulin 2.2 Albumin/Globulin Ratio 2.0 Lipase 440 H Urine Color YELLOW Urine Clarity CLEAR Urine pH 5.5 Ur Specific [place] 1.020 Urine Protein NEGATIVE Urine Glucose (UA) NEGATIVE Urine Ketones NEGATIVE Urine Occult Blood NEGATIVE Urine Nitrite NEGATIVE Urine Bilirubin NEGATIVE Urine Urobilinogen 0.2 (NORMAL) Ur Leukocyte Esterase NEGATIVE Ur Microscopic Review NOT INDICATED Urine Culture Comments NOT INDICATED PD Medical Decision Making - ED course ED course: 88-year-old woman has a history of gallstone pancreatitis with admission in December for same and had 20 minutes of pain tonight reminiscent of that. The pain is resolved on my evaluation and completely nontender. She does have a normal CBC and modest elevation of the lipase of 440. She probably did pass a gallstone today. We will go ahead and check an ultrasound and clear liquid diet for the next 24 hours was advised. Given that she is now pain-free and nontender I do not think she needs admission. The ultrasound showing sludge and stones and dilated ducts. The dilated ducts were noted previously on an ultrasound done in March of this year and seems to have progressed. She had a negative MRCP in December, but given the worsening dilated ducts may benefit from this being repeated. Given that she is and remained completely pain-free and nontender in the emergency department I think she can be safely discharged with a clear liquid diet for the next 24 hours and surgical follow-up. Departure - Departure Disposition: 01 Home, Self Care Clinical Impression: Acute gallstone pancreatitis Condition: Good Record reviewed to determine appropriate education?: Yes Instructions: ED Pancreatitis Follow-Up: Allen Porter MD [Provider Admit Priv/Credential] - Comments: You were seen tonight for likely episode of biliary colic and we saw sludge in your gallbladder and may be some stones as well as dilated ducts. The dilated ducts have been seen previously which is why he had an MRI done in December of this year and frankly the ductal dilatation was more impressive in the follow-up ultrasound ordered by Dr. Weston in March. Follow-up with Dr. Porter. He may want to repeat the MRI given that the ductal dilatation is getting worse. In the meantime I would do a clear liquid diet for the next 24 hours and return if the pain recurs. Forms: PCP List
[2023-08-03 19:40] LABS: BILIRUBIN,URINE NEGATIVE (NEGATIVE); GLUCOSE, URINE (UA) NEGATIVE (NEGATIVE); KETONES,URINE (UA) NEGATIVE (NEGATIVE); LEUKOCYTE ESTERASE, URINE NEGATIVE (NEGATIVE); NITRITE,URINE NEGATIVE (NEGATIVE); OCCULT BLOOD,URINE NEGATIVE (NEGATIVE); PH,URINE 5.5 PH (5.0-7.5); PROTEIN,URINE NEGATIVE (NEGATIVE); UROBILINOGEN,URINE 0.2 (NORMAL) E.U./dL (NORMAL)
[2023-08-03 19:47] LABS: CLARITY,URINE CLEAR (CLEAR)
[2023-08-03 20:57] VITALS: BP 184/80; O2SAT 97
--- NOTE | 2023-08-03 21:04 | Ultrasound Report ---
PROCEDURE: Abdomen Limited INDICATIONS: RUQ pain TECHNIQUE: Real-time focused scanning was performed of the abdomen, with image documentation. COMPARISONS: Ultrasound 04/04/2023 FINDINGS: Liver: Echogenic. Redemonstrated 1.8 cm liver cyst Gallbladder: Sludge and/or tiny stones. No wall thickening or sonographic Sutton sign Biliary ducts: Intrahepatic bile ducts are non-dilated. Extrahepatic bile duct caliber measures 11 mm. Normal is 6-7 mm or less in diameter, or 10 mm or less post-cholecystectomy. Pancreas: Visualized portions of the pancreas are sonographically normal. Right kidney: Right kidney measures 9.6 cm long. No hydronephrosis or nephrolithiasis. No solid ma sses. No complex renal cystic lesions which require follow-up. Miscellaneous: No free abdominal fluid. IMPRESSION: 1. Sludge and/or tiny stones present within the gallbladder. No evidence of acute cholecystitis. 2. Redemonstrated intrahepatic biliary duct dilation without intrahepatic ductal dilation identified. 3. The liver is echogenic, a nonspecific finding commonly seen in the setting of steatosis. Reviewed by: Otoniel Neely MD on 08/03/2023 9:02 PM PDT Approved by: Otoniel Neely MD on 08/03/2023 9:02 PM PDT Station ID: [id number]
== END 2023-08-03 21:16 | disposition home or self-care (01) ==
LOC: ED 15:54
DX: K85.10 Biliary acute pancreatitis without necrosis or infection (principal); K51.90 Ulcerative colitis, unspecified, without complications; D50.9 Iron deficiency anemia, unspecified; E03.9 Hypothyroidism, unspecified; R73.03 Prediabetes
CPT/HCPCS: 36415; 80048; 80053; 81001; 81003; 83036; 83690; 84439; 84443; 84481; 85025; 87086; 99283; 99284

== ENCOUNTER 2023-12-03 10:15 | Outpatient (CLI) | payer MEDICARE, OTHER ==
--- NOTE | 2023-12-05 09:30 | Mammography Report ---
BILATERAL DIGITAL SCREENING MAMMOGRAM 3D/2D: 12/03/2023 CLINICAL: Routine screening. Comparison is made to exams dated: 11/28/2022 mammogram, 01/22/2017 mammogram, and 01/13/2015 mammogram - [facility]. There are scattered areas of fibroglandular density in both breasts (category b / 25%-50% glandular t issue). No significant masses, calcifications, or other findings are seen in either breast. There has been no significant interval change. IMPRESSION: NEGATIVE There is no mammographic evidence of malignancy. A 1 year screening mammogram is recommended. This exam was interpreted at Station ID: [id number]. NOTE: For mammograms, a report in lay terms will be sent to the patient. Approximately 15% of breast malignancies will not be visualized mammographically. In the management of a palpable breast mass, a negative mammogram must not discourage biopsy of a clinically suspicious lesion. Electronically Signed By: Sydnee Domínguez M.D., PH.D eb/penrad:12/04/2023 17:46:58 letter sent: No_Letter ACR BI-RADS Category 1: Negative [id number] PARENCHYMAL PATTERN: (A) - The breast(s) demonstrate(s) scattered fibroglandular densities. BI-RADS CATEGORY: (1) - 1 Mammogram [id number] 1 year screening LATERALITY: (B)
== END 2023-12-03 10:16 | disposition home or self-care (01) ==
LOC: DI 10:15
DX: Z12.31 Encounter for screening mammogram for malignant neoplasm of breast (principal); R92.323 Mammographic fibroglandular density, bilateral breasts

== ENCOUNTER 2024-04-25 08:03 | Inpatient (IN) | payer MEDICARE, OTHER ==
[2024-04-25 08:31] LABS: BASOPHILS # (AUTO) 0.1 10^3/uL (0.0-0.1); BASOPHILS % (AUTO) 0.4 %; EOSINOPHILS # (AUTO) 0.1 10^3/uL (0.0-0.7); EOSINOPHILS % (AUTO) 1.2 %; HGB - HEMOGLOBIN 11.4 g/dL (12.0-16.0); LYMPHOCYTES # (AUTO) 2.1 10^3/uL (1.5-3.5); LYMPHOCYTES % (AUTO) 17.5 %; MEAN CORPUSCULAR HGB CONC 31.7 g/dL (32.0-36.0); MEAN CORPUSCULAR VOLUME 104.3 fL (81.0-99.0); MEAN PLATELET VOLUME 10.4 fL (7.9-10.8); MONOCYTES # (AUTO) 0.8 10^3/uL (0.0-1.0); MONOCYTES % (AUTO) 6.5 %; NEUTROPHILS # (AUTO) 8.7 10^3/uL (1.5-6.6); PLT - PLATELET COUNT 193 10^3/uL (130-450); RED BLOOD COUNT 3.45 10^6/uL (4.20-5.40); RED CELL DISTRIBUTION WIDTH 14.1 % (12.0-15.0); WHITE BLOOD COUNT 11.8 x10^3/uL (4.8-10.8)
[2024-04-25 08:47] LABS: ALBUMIN 4.4 g/dL (3.2-5.5); ALBUMIN/GLOBULIN RATIO 1.5 (1.0-2.2); ALKALINE PHOSPHATASE 90 IU/L (42-121); ALT ALANINE AMINOTRANSFERASE 14 IU/L (10-60); AST ASPARTATE AMINOTRANSFERASE 34 IU/L (10-42); BILIRUBIN,TOTAL 0.6 mg/dL (0.2-1.0); BUN - BLOOD UREA NITROGEN 43 mg/dL (6-20); CALCIUM 10.3 mg/dL (8.5-10.3); CARBON DIOXIDE - CO2 23 mmol/L (21-32); CHLORIDE 111 mmol/L (101-111); CREATININE 1.3 mg/dL (0.6-1.3); GFR - MDRD 39 (>89); GLUCOSE 146 mg/dL (74-104); POTASSIUM 3.4 mmol/L (3.5-4.5); SODIUM 145 mmol/L (135-145); TOTAL PROTEIN 7.4 g/dL (6.4-8.9)
[2024-04-25] MEDS: ONDANSETRON 4 MG/2 ML VIAL IVP STA ×3 (09:00→20:29)
--- NOTE | 2024-04-25 09:00 | ED Physician Documentation ---
PD HPI NVD - Stated complaint Stated Complaint: N/V/D,ABD PX - Chief complaint Chief Complaint: Abd Pain - History obtained from History obtained from: Patient, Family () - History of Present Illness Timing - onset: Yesterday Timing - duration: Days (2) Timing - details: Gradual onset, Still present, Waxing and waning Associated symptoms: Abdominal pain, Loss of appetite, Other (nausea/vomiting) Contributing factors: No: Sick contact Improved by: Laying still, Vomiting Worsened by: Eating, Position, Palpation Similar symptoms before: Diagnosis (gall stone pancreatitis) Recently seen: Not recently seen Review of Systems Constitutional: reports: Chills, Sweats. denies: Fever Eyes: denies: Decreased vision Ears: denies: Ear pain Nose: denies: Rhinorrhea / runny nose, Congestion Throat: denies: Sore throat Cardiac: denies: Chest pain / pressure, Palpitations Respiratory: denies: Dyspnea, Cough GI: reports: Abdominal Pain, Nausea, Vomiting, Diarrhea : denies: Dysuria, Frequency Skin: denies: Rash Musculoskeletal: denies: Neck pain, Back pain, Extremity pain PD PAST MEDICAL HISTORY - Past Medical History Past Medical History: Yes Cardiovascular: Hypertension, Murmur, Other Respiratory: None Neuro: None Endocrine/Autoimmune: Other GI: GERD, Ulcerative colitis, Other : None HEENT: Chronic vision loss, Chronic hearing loss Psych: None Musculoskeletal: Osteoarthritis, Gout Derm: Rosacea - Past Surgical History Past Surgical History: Yes General: 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, 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 HEENT: Cataracts - Present Medications Home Medications: Ambulatory Orders Medication Instructions Recorded Confirmed Tolterodine Tartrate [Detrol LA] 2 mg PO DAILY 01/11/15 04/16/24 Valsartan [Diovan] 80 mg PO DAILY 08/05/20 04/16/24 Levothyroxine Sodium [Synthroid] 100 mcg PO QDAC 12/25/20 04/16/24 Metoprolol Succinate [Toprol Xl] 50 mg PO DAILY 08/01/21 04/16/24 Pantoprazole [Protonix] 40 mg PO DAILY 01/04/23 04/16/24 Rivaroxaban [Xarelto] 20 mg PO DAILY 01/04/23 04/16/24 allopurinoL [Zyloprim] 100 mg PO DAILY 01/04/23 04/16/24 Biotin 5 mg PO DAILY 01/05/23 04/16/24 Furosemide [Lasix] 20 mg PO BID 01/05/23 04/16/24 Dana-3 Acid Ethyl Esters 1 gm PO DAILY 01/05/23 04/16/24 ursodioL [Actigall] 300 mg PO DAILY 04/16/24 04/16/24 - Allergies Allergies/Adverse Reactions: Allergies Allergy/AdvReac Type Severity Reaction Status Date / Time meperidine HCl * Allergy Intermediate Hives Verified 04/25/24 08:15 [From Demerol] Iodine and Iodide Containing Allergy Mild Rash Verified 04/25/24 08:15 Produc - Social History Does the pt smoke?: No Smoking Status: Never smoker Does the pt drink ETOH?: Yes Does the pt have substance abuse?: No - Immunizations Immunizations are current?: Yes - POLST Patient has POLST: No PD ED PE NORMAL - Vitals Vital signs reviewed: Yes - General General: Alert and oriented X 3, Well developed/nourished, Other (pale appearing with fruit canner tone ) - HEENT HEENT: Atraumatic, PERRL, EOMI, Other (dry mcuous membranes ) - Neck Neck: Supple, no meningeal sign, No bony TTP - Cardiac Cardiac: RRR, No murmur - Respiratory Respiratory: No respiratory distress, Clear bilaterally - Abdomen Abdomen: Normal bowel sounds, Soft, Non distended, No organomegaly, Other (RUQ tenderness and epigstric tenderness to palaption ) - Back Back: No CVA TTP, No spinal TTP - Derm Derm: Normal color, Warm and dry, No rash - Extremities Extremities: No deformity, No edema - Neuro Neuro: Alert and oriented X 3, physical damage appraiser 2-12 intact, No motor deficit, No sensory deficit, Normal speech Eye Opening: Spontaneous Motor: Obeys Commands Verbal: Oriented GCS Score: 15 - Psych Psych: Normal mood, Normal affect Results - Vitals Vitals: Vital Signs - 24 hr 04/25/24 04/25/24 04/25/24 08:12 11:32 14:40 Temperature 36.6 C 36.7 C Heart Rate 77 76 66 Respiratory 20 18 18 Rate Blood Pressure 163/88 H 137/63 H 117/58 L O2 Saturation 99 100 94 04/25/24 17:51 Temperature 36.9 C Heart Rate 67 Respiratory 18 Rate Blood Pressure 121/68 O2 Saturation 95 Oxygen O2 Source Room air - Labs Labs: Laboratory Tests 04/25/24 04/25/24 04/25/24 08:24 08:24 11:09 WBC 11.8 H RBC 3.45 L Hgb 11.4 L Hct 36.0 L MCV 104.3 H MCH 33.0 H MCHC 31.7 L RDW 14.1 Plt Count 193 MPV 10.4 Neut # (Auto) 8.7 H Lymph # (Auto) 2.1 [place] # (Auto) 0.8 Eos # (Auto) 0.1 Baso # (Auto) 0.1 Absolute Nucleated RBC 0.00 Nucleated RBC % 0.0 Sodium 145 Potassium 3.4 L Chloride 111 Carbon Dioxide 23 Anion Gap 11.0 BUN 43 H Creatinine 1.3 Estimated GFR (MDRD) 39 L Glucose 146 H Calcium 10.3 Total Bilirubin 0.6 AST 34 ALT 14 Alkaline Phosphatase 90 Total Protein 7.4 Albumin 4.4 Globulin 3.0 Albumin/Globulin Ratio 1.5 Lipase > 6000 H Urine Color YELLOW Urine Clarity CLEAR Urine pH 5.5 Ur Specific [place] 1.020 Urine Protein NEGATIVE Urine Glucose (UA) NEGATIVE Urine Ketones NEGATIVE Urine Occult Blood NEGATIVE Urine Nitrite NEGATIVE Urine Bilirubin NEGATIVE Urine Urobilinogen 0.2 (NORMAL) Ur Leukocyte Esterase NEGATIVE Ur Microscopic Review NOT INDICATED Urine Culture Comments NOT INDICATED - Rads (name of study) CT ab/pel Relevant Findings:: Prelim report reviewed (Impression: Findings suggest probable acute pancreatitis involving the head and uncinate process with probable ileus or ductal dilation and markedly distended gallbladder, with possible gallbladder gravel. Recommend MRCP with and without contrast), EMP independent interpretation of test, See rad report MRCP Relevant Findings:: Prelim report reviewed Procedures - Bedside sono Bedside sono by EMP: With use of POCUS the right upper quadrant is imaged the gallbladder is enlarged it is tender to sonographic palpation the gallbladder wall measures 4.9 mm there is some trace pericholecystic fluid. - IVC sono (time) 0850 Bedside IVC sono: IVC measures (cm) (1.8), Euvolemia PD Medical Decision Making - ED course Complexity details: reviewed results, re-evaluated patient, considered differential, d/w patient, d/w family Reviewed Lab Results: We reviewed a complete blood count count showing an elevated white blood cell count of 11.8 a depressed hemoglobin of 11.4 and a depressed hematocrit of 36.0 both of these levels similar to what patient has had previously over the past y ear. Platelets 193,000 and normal indices show an elevated MCV RDW is normal at 14.1 potassium is low at 3.4 kidney function shows an elevated BUN of 43 this is similar to what the patient's had previously as well and her lipase is markedly elevated at greater than 6000. Total bilirubin is normal at 0.6 and the liver functions are all normal including alkaline phosphatase normal at 98 urinalysis shows specific gravity 1.020 and is otherwise negative. These laboratory studies are concerning for a stressful process with an elevated white blood cell count and the markedly elevated lipase is concerning for acute pancreatitis without evidence of obstruction. There is normal alkaline phosphatase and normal bilirubin. MRCP: Impression: 1 problem probable peripancreatic edema again seen compatible with acute pancreatitis. No significant acute peripancreatic fluid collection. Distended gallbladder. No definite gallstones identified given respiratory motion. No biliary ductal dilation or choledocholithiasis is identified. ED course: 89-year-old female with a prior history of gallstone pancreatitis presents to the emergency department with abdominal pain nausea vomiting and diarrhea and appears to have acute pancreatitis. A CT scan of the abdomen pelvis shows what appears to be gravel in the gallbladder and the recommendation for MRCP is made. There is no biochemical evidence to suggest obstruction. The patient has improvement with the use of Zofran for nausea and Dilaudid for pain. We will continue her on maintenance fluids admit to the hospital for treatment of acute pancreatitis. Departure - Departure Disposition: [facility] DC/Xfer Clinical Impression: Dehydration Pancreatitis Qualifiers: Chronicity: acute Pancreatitis type: unspecified pancreatitis type Acute pancreatitis complication: no infection or necrosis Qualified Code(s): K85.90 - Acute pancreatitis without necrosis or infection, unspecified Condition: Stable Forms: PCP List
[2024-04-25 09:02] LABS: LIPASE > 6000 U/L (11-82)
[2024-04-25] MEDS: POTASSIUM CHLOR 10 MEQ/100 ML 10 MEQ/100 ML BAG IV ONE (09:11)
--- NOTE | 2024-04-25 11:13 | CT Report ---
PROCEDURE: Abdomen/Pelvis WO INDICATIONS: pancreatitis contranst allergy TECHNIQUE: A CT scan of the abdomen and pelvis was performed without the use of intravenous contrast. Images we re recorded and evaluated at appropriate window settings. Reformats: coronal and sagittal. For radiat ion dose reduction, the following was used: automated exposure control, adjustment of mA and/or kV ac cording to patient size. COMPARISON: 01/03/2023 CT of the abdomen and pelvis, 01/04/2023 MRCP with and without contrast.. FINDINGS: Image quality: Diagnostic. Lower chest: Mild bibasilar dependent change. Liver: No contour-deforming mass. Gallbladder: Markedly distended gallbladder. No gallbladder wall thickening. Question layering gravel .. Biliary tree: Question biliary ductal dilatation. Spleen: No splenomegaly. Pancreas: Somewhat suboptimal imaging secondary to lack of intravenous contrast. Suggestion of likely edema and perinephric stranding involving the region of the head and uncinate process of the pancrea s. Adrenals: No adrenal nodule. Kidneys and ureters: No hydronephrosis. No contour-deforming mass. Stomach, bowel and peritoneum: No gastric or small bowel dilation. No abnormal wall thickening. No pa thologic free fluid. Previous partial bowel resection. Lymph nodes: No central or retroperitoneal adenopathy. Vessels: No infrarenal aortic aneurysm. 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 Reproductive organs: Uterus is surgically absent. No adnexal masses.. Bladder: Bladder wall thickness is normal, accounting for underdistention. No calcified bladder stone s. Pelvic lymph nodes: No adenopathy by size criteria. Bones: No aggressive osseous abnormality. Extensive lumbar degenerative change. Severe bilateral hip degenerative change.. Other: Bilateral fat-containing inguinal hernias. IMPRESSION: Findings suggest probable acute pancreatitis involving the head and uncinate process with probable il eus or ductal dilatation and markedly distended gallbladder, with possible gallbladder gravel. Recommend MRCP with and without contrast. Reviewed by: Fili Plascencia MD on 04/25/2024 11:12 AM PDT Approved by: Fili Plascencia MD on 04/25/2024 11:12 AM PDT Station ID: [id number]
[2024-04-25 11:26] LABS: BILIRUBIN,URINE NEGATIVE (NEGATIVE); CLARITY,URINE CLEAR (CLEAR); GLUCOSE, URINE (UA) NEGATIVE (NEGATIVE); KETONES,URINE (UA) NEGATIVE (NEGATIVE); LEUKOCYTE ESTERASE, URINE NEGATIVE (NEGATIVE); NITRITE,URINE NEGATIVE (NEGATIVE); OCCULT BLOOD,URINE NEGATIVE (NEGATIVE); PH,URINE 5.5 PH (5.0-7.5); PROTEIN,URINE NEGATIVE (NEGATIVE); UROBILINOGEN,URINE 0.2 (NORMAL) E.U./dL (NORMAL)
[2024-04-25] MEDS: HYDROmorphone 1 MG/ML CARPUJECT IVP STA ×2 (13:00→20:29)
[2024-04-25] MEDS: SODIUM CHLORIDE 0.9% 1,000 ML IV STA (13:01)
[2024-04-25] MEDS ORDERED: GADOTERATE MEGLUMINE 7.5 MMOL/15 ML VIAL ONE (16:05)
[2024-04-25] MEDS: GADOTERATE MEGLUMINE 7.5 MMOL/15 ML VIAL IVP ONE (16:53)
--- NOTE | 2024-04-25 17:39 | MRI Report ---
PROCEDURE: MRCP W/WO INDICATIONS: pancreatitis CONTRAST: CLARISCAN 10.2 ML TECHNIQUE: Coronal ultra fast SE through the abdomen, axial 2-D spoiled GE in- and [id number], and breath-hold T2 FSE with fat saturation through the biliary system and pancreas. Oblique coronal and axial thin- slice ultra fast SE, radial thick-slab ultra fast SE centered on the extrahepatic bile ducts. COMPARISON: CT abdomen/pelvis 04/25/2024, abdominal ultrasound 08/03/2023 FINDINGS: Image quality: Images are degraded by respiratory motion on multiple sequences. Some diagnostic infor mation is obtained.. Gallbladder: Distended gallbladder measuring up to 5.1 x 9.9 cm on coronal images. No clearly defined gallstones given artifact related to bile flow. Biliary tree: No intrahepatic or extrahepatic biliary ductal dilatation. No filling defect is seen al alice the course of the common bile duct given respiratory motion. Pancreas: No pancreatic ductal dilation. Pancreas enhances homogeneously. Suspicion of mild peripancr eatic edema, which is better seen on the prior CT. Lung bases and heart: Unremarkable. Liver: Markedly [id number] circumscribed mass is seen in the lateral right hepatic lobe. Postco ntrast images are mildly degraded by motion, however this lesion is considered benign. Spleen: No splenomegaly. Adrenals: No adrenal nodule. Kidneys and ureters: No hydronephrosis. No renal cystic lesion which requires follow up. No solid mas s. Bowel and peritoneum: No bowel distension. No pathologic free fluid. Lymph nodes: No central or retroperitoneal adenopathy. Vessels: No infrarenal aortic aneurysm. Bones: No aggressive osseous abnormality. Other: No significant ventral hernia. IMPRESSION: 1.Probable peripancreatic edema again seen compatible with acute pancreatitis. No significant acute p eripancreatic fluid collection. 2.Distended gallbladder. No definite gallstones identified given respiratory motion. 3.No biliary ductal dilatation or choledocholithiasis identified. Reviewed by: Otoniel Correia MD on 04/25/2024 5:38 PM PDT Approved by: Otoniel Correia MD on 04/25/2024 5:38 PM PDT Station ID: [id number]
--- NOTE | 2024-04-25 20:23 | ED Physician Documentation ---
ED Addendum - Addendum Addendum: 04/25/24 20:[address] Merchant at shift change pending callback from the hospitalist. I spoke with the hospitalist for admission at this time. Disposition: Admitted to the hospital Condition: Stable
[2024-04-25] MEDS ORDERED: ACETAMINOPHEN 325 MG TABLET PO PRN (23:41)
[2024-04-25] MEDS ORDERED: SODIUM CHLORIDE FLUSH 0.9% 10 ML SYRINGE IVP PRN (23:41)
[2024-04-26 00:06] LABS: BASOPHILS % (AUTO) 0.5 %; EOSINOPHILS # (AUTO) 0.1 10^3/uL (0.0-0.7); EOSINOPHILS % (AUTO) 1.8 %; HCT - HEMATOCRIT 29.4 % (37.0-47.0); HGB - HEMOGLOBIN 9.3 g/dL (12.0-16.0); LYMPHOCYTES # (AUTO) 1.3 10^3/uL (1.5-3.5); LYMPHOCYTES % (AUTO) 23.4 %; MEAN CORPUSCULAR HEMOGLOBIN 33.2 pg (27.0-31.0); MEAN CORPUSCULAR HGB CONC 31.6 g/dL (32.0-36.0); MEAN PLATELET VOLUME 10.3 fL (7.9-10.8); MONOCYTES # (AUTO) 0.5 10^3/uL (0.0-1.0); MONOCYTES % (AUTO) 9.6 %; NEUTROPHILS # (AUTO) 3.6 10^3/uL (1.5-6.6); NEUTROPHILS % (AUTO) 64.5 %; PLT - PLATELET COUNT 150 10^3/uL (130-450); RED CELL DISTRIBUTION WIDTH 14.2 % (12.0-15.0); WHITE BLOOD COUNT 5.6 x10^3/uL (4.8-10.8)
[2024-04-26] MEDS: HYDROmorphone 0.5 MG/0.5 ML SYRINGE IVP PRN (00:11)
[2024-04-26 00:17] LABS: MAGNESIUM 1.5 mg/dL (1.7-2.3)
[2024-04-26 00:23] LABS: ALBUMIN 3.6 g/dL (3.2-5.5); ALBUMIN/GLOBULIN RATIO 1.5 (1.0-2.2); BILIRUBIN,TOTAL 0.6 mg/dL (0.2-1.0); CALCIUM 9.2 mg/dL (8.5-10.3); CHOLESTEROL 139 mg/dL; HDL CHOLESTEROL 70 mg/dL; LDL CHOLESTEROL,CALCULATED 38 mg/dL; LDL/HDL RATIO 0.5 (<4.4); POTASSIUM 3.2 mmol/L (3.5-4.5); TRIGLYCERIDES 155 mg/dL; VLDL CHOLESTEROL 31 mg/dL
[2024-04-26 00:51] LABS: THYROID STIMULATING HORMONE 1.04 uIU/mL (0.34-5.60)
[2024-04-26] MEDS ORDERED: ACETAMINOPHEN 1,000 MG/100 ML 1,000 MG/100 ML BAG IV PRN (01:33)
[2024-04-26] MEDS: LACTATED RINGERS 1,000 ML IV SCH ×2 (02:07→08:07)
[2024-04-26] MEDS: SODIUM CHLORIDE FLUSH 0.9% 10 ML SYRINGE IVP SCH (02:07)
--- NOTE | 2024-04-26 02:19 | HISTORY & PHYSICAL EXAMINATION ---
Chief Complaint - Chief Complaint Chief Complaint: abd pain, nausea, vomiting History of Present Illness - History of Present Illness HPI Comment/Other: pt with h/o gallstone pancreatitis presents with acute abdominal pain, nausea, vomiting for past several days without clear inciting factors. she states she has had similar symptoms in the past without any evidence of obstruction as well. no fevers but has chills. no chest pain. denies diarrhea. History - Past Medical History Cardiovascular: reports: Hypertension, Pulmonary embolism, Murmur, Other Respiratory: reports: None, Shortness of breath Neuro: reports: None Endocrine/Autoimmune: reports: HyPOthyroidism, Other GI: reports: GERD, GI bleed, Ulcers, Colon polyps, Hemorrhoids, Pancreatitis, Diverticulitis, Cholelithiasis, Ulcerative colitis, Other : reports: Incontinence HEENT: reports: Chronic vision loss, Chronic hearing loss Psych: reports: None Musculoskeletal: reports: Osteoarthritis, Rheumatoid arthritis, Gout, Chronic back pain Derm: reports: Rosacea MRSA Hx?: No - Past Surgical History General: reports: 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, Bowel surgery, Colonoscopy Ortho: reports: Carpal Tunnel surgery, Other /[employer]IV[employer]ITY [employer]ER: reports: Hysterectomy HEENT: reports: Cataracts - POLST Patient has POLST: No Meds/Allgy - Home Medications Home Medications: Ambulatory Orders Medication Instructions Recorded Confirmed Tolterodine Tartrate [Detrol LA] 2 mg PO DAILY 01/11/15 04/16/24 Valsartan [Diovan] 80 mg PO DAILY 08/05/20 04/16/24 Levothyroxine Sodium [Synthroid] 100 mcg PO QDAC 12/25/20 04/16/24 Metoprolol Succinate [Toprol Xl] 50 mg PO DAILY 08/01/21 04/16/24 Pantoprazole [Protonix] 40 mg PO DAILY 01/04/23 04/16/24 Rivaroxaban [Xarelto] 20 mg PO DAILY 01/04/23 04/16/24 allopurinoL [Zyloprim] 100 mg PO DAILY 01/04/23 04/16/24 Biotin 5 mg PO DAILY 01/05/23 04/16/24 Furosemide [Lasix] 20 mg PO BID 01/05/23 04/16/24 [place]-3 Acid Ethyl Esters 1 gm PO DAILY 01/05/23 04/16/24 ursodioL [Actigall] 300 mg PO DAILY 04/16/24 04/16/24 - Allergies Allergies/Adverse Reactions: Allergies Allergy/AdvReac Type Severity Reaction Status Date / Time meperidine HCl * Allergy Intermediate Hives Verified 04/25/24 08:15 [From Demerol] Iodine and Iodide Containing Allergy Mild Rash Verified 04/25/24 08:15 Produc Review of Systems - Other Findings Other Findings: 14 pt review done with positives per hpi; all others reviewed as negative Exam - Vital Signs Vital Signs: Vital Signs x48h Temp Pulse Pulse Resp BP BP Pulse Ox 04/26/24 00:49 36.7 C 77 18 144/72 H 99 04/25/24 22:29 65 18 134/63 H 99 04/25/24 20:05 87 14 127/59 L 96 - Physical Exam Comments/Other: gen - aaox3, uncomfortable but cooperative with questions heent - eomi, nc/at heart - per ed charting lungs - per ed charting abd - diffuse tenderness msk- no acute trauma noted Conclusion/Plan - Lab Results Fish Bones: 04/25/24 23:55 04/25/24 23:55 - Other Other Results/Comments: pt with - - acute abdominal pain d/t acute pancreatitis h/o same, without clear etiology imagine does not show obstruction or infection pain control, ivf, gi eval as outpt - nausea / vomiting d/t above zofran prn supportive mgmt f/u labs, replete electrolytes further orders per clinical course
[2024-04-26] MEDS: LEVOTHYROXINE 75 MCG TABLET PO SCH (06:17)
[2024-04-26] MEDS: ONDANSETRON 4 MG/2 ML VIAL IVP PRN (08:08)
[2024-04-26 08:11] LABS: BASOPHILS % (AUTO) 0.8 %; EOSINOPHILS # (AUTO) 0.1 10^3/uL (0.0-0.7); EOSINOPHILS % (AUTO) 2.1 %; HCT - HEMATOCRIT 28.1 % (37.0-47.0); LYMPHOCYTES # (AUTO) 0.9 10^3/uL (1.5-3.5); LYMPHOCYTES % (AUTO) 18.1 %; MEAN CORPUSCULAR HEMOGLOBIN 33.2 pg (27.0-31.0); MEAN CORPUSCULAR VOLUME 103.7 fL (81.0-99.0); MONOCYTES # (AUTO) 0.6 10^3/uL (0.0-1.0); MONOCYTES % (AUTO) 11.8 %; NEUTROPHILS # (AUTO) 3.3 10^3/uL (1.5-6.6); PLT - PLATELET COUNT 139 10^3/uL (130-450); RED BLOOD COUNT 2.71 10^6/uL (4.20-5.40); RED CELL DISTRIBUTION WIDTH 14.2 % (12.0-15.0); WHITE BLOOD COUNT 4.9 x10^3/uL (4.8-10.8)
[2024-04-26 08:32] LABS: ALBUMIN 3.7 g/dL (3.2-5.5); ALBUMIN/GLOBULIN RATIO 1.8 (1.0-2.2); BILIRUBIN,TOTAL 0.7 mg/dL (0.2-1.0); CALCIUM 9.2 mg/dL (8.5-10.3); CREATININE 0.8 mg/dL (0.6-1.3); MAGNESIUM 1.4 mg/dL (1.7-2.3); POTASSIUM 3.6 mmol/L (3.5-4.5); TOTAL PROTEIN 5.8 g/dL (6.4-8.9)
[2024-04-26] MEDS ORDERED: URSODIOL 300 MG PO SCH (09:00)
[2024-04-26] MEDS ORDERED: TOLTERODINE LA 2 MG CAPSULE PO SCH (09:00)
[2024-04-26] MEDS ORDERED: FUROSEMIDE 40 MG TABLET PO SCH (09:00)
[2024-04-26] MEDS ORDERED: RIVAROXABAN 15 MG PO SCH (09:00)
[2024-04-26] MEDS: LOSARTAN 50 MG TABLET PO SCH (09:02)
[2024-04-26] MEDS: PANTOPRAZOLE 40 MG TABLET PO SCH (09:02)
[2024-04-26] MEDS: METOPROLOL SUCCINATE 50 MG TABLET PO SCH (09:04)
[2024-04-26] MEDS: APIXABAN 5 MG TABLET PO SCH (09:04)
[2024-04-26] MEDS: OMEGA-3 ACID ETHYL ESTERS 1 GM CAPSULE PO SCH (09:04)
[2024-04-26] MEDS: allopurinoL 100 MG TABLET PO SCH (09:05)
[2024-04-26] MEDS: MAGNESIUM SULFATE 2 GRAM 2 GM/50 ML BAG IV ONE (10:54)
[2024-04-26 11:28] LABS: ESTIMATED AVERAGE GLUCOSE 103 mg/dL (70-100); HEMOGLOBIN A1c% 5.2 % (4.27-6.07)
--- NOTE | 2024-04-26 13:32 | PHARMACY PROGRESS NOTE ---
- Best Possible Medication History Admit Date and Time: 04/26/24 1037 Processed by: Pharmacy Medications reviewed in ED?: Yes Medication History completed: Yes Patient Interview: Completed Secondary Source(s): Written medication list, Insurance records (PER [employer] RECORDS AND PT INTERVIEW) As the person ultimately responsible for medication therapy, providers are able to order a medication from an existing home medication list in [facility] via the "Reconcile Routine" prior to Confirmation of that medication by marketing support specialist. Such practice is discouraged except when the physician, in their clinical judgment, deems that a medical need exists for a medication without regard to previous use.
--- NOTE | 2024-04-26 15:37 | PROVIDER PROGRESS NOTE ---
Assessment/Plan - Problem List (1) Pancreatitis Qualifiers: Chronicity: acute Pancreatitis type: unspecified pancreatitis type Acute pancreatitis complication: no infection or necrosis Qualified Code(s): K85.90 - Acute pancreatitis without necrosis or infection, unspecified Assessment/Plan: --Continue IV LR. --Exact etiology is unknown. MRCP did not show evidence of gallstones. --Patient does have a follow up with GI in several weeks at [facility]. I instructed her to keep this appointment. (2) Hypothyroidism Assessment/Plan: --Continue levothyroxine. (3) Pulmonary embolus Assessment/Plan: --Currently on Xarelto at home. She has been having some suspected GI bleeding. Has a follow up with GI. - Current Meds Current Meds: Current Medications Generic Name Dose Route Start Last Admin Trade Name Freq PRN Reason Stop Dose Admin Allopurinol 100 mg 04/26/24 09:00 04/26/24 09:05 Allopurinol 100 Mg Tablet PO 100 mg DAILY SAMANTHA Administration Apixaban 5 mg 04/26/24 09:00 04/26/24 09:04 Apixaban 5 Mg Tablet PO 5 mg BID SAMANTHA Administration Hydromorphone HCl 0.5 mg 04/25/24 23:49 04/26/24 08:08 Hydromorphone 0.5 Mg/0.5 Ml Syringe IVP 0.5 mg Q6H PRN Administration Severe Pain (Level 7-10) Lactated Ringer's 1,000 mls @ 125 mls/hr 04/26/24 08:00 04/26/24 12:53 Lr IV 04/26/24 19:59 125 mls/hr .Q8H SAMANTHA Administration Levothyroxine Sodium 100 mcg 04/26/24 07:00 04/26/24 06:17 Levothyroxine 75 Mcg Tablet PO 100 mcg QDAC SAMANTHA Administration Losartan Potassium 25 mg 04/26/24 09:00 04/26/24 09:02 Losartan 50 Mg Tablet PO 25 mg DAILY SAMANTHA Administration Metoprolol Succinate 50 mg 04/26/24 09:00 04/26/24 09:04 Metoprolol Succinate 50 Mg Tablet PO 50 mg DAILY SAMANTHA Administration Appmg-6-Zcdx Ethyl Esters 1 gm 04/26/24 09:00 04/26/24 09:04 [place]-3 Acid Ethyl Esters 1 Gm Capsule PO 1 gm DAILY SAMANTHA Administration Ondansetron HCl 4 mg 04/25/24 23:41 04/26/24 08:08 Ondansetron 4 Mg/2 Ml Vial IVP 4 mg Q6HR PRN Administration Nausea / Vomiting Pantoprazole Sodium 40 mg 04/26/24 09:00 04/26/24 09:02 Pantoprazole 40 Mg Tablet PO 40 mg DAILY SAMANTHA Administration Sodium Chloride 10 ml 04/26/24 01:00 04/26/24 08:09 Sodium Chloride Flush 0.9% 10 Ml Syringe IVP 10 ml 0100,0900,1700 SAMANTHA Administration Ursodiol 250 mg 04/26/24 09:00 04/26/24 09:03 Ursodiol 250 Mg Tablet PO 250 mg DAILY SAMANTHA Administration - Lab Result Fish Bone Diagrams: 04/26/24 08:04 04/26/24 08:04 - Additional Planning My Orders: My Active Orders 04/26/24 08:00 Lactated Ringers [Lr] 1,000 ml IV 125 mls/hr 04/26/24 Lunch Full Liquid Diet [DIET] 04/27/24 09:00 Solifenacin Succinate [Vesicare] 5 mg PO DAILY Subjective - Subjective Patient Reports: Feeling Better, Resting Comfortably, No Complaints Objective Vital Signs: Vital Signs - 24 hr 04/25/24 04/25/24 04/25/24 17:51 20:05 22:29 Temperature 36.9 C Heart Rate 67 87 65 Heart Rate [ Brachial] Respiratory 18 14 18 Rate Blood Pressure 121/68 127/59 L 134/63 H Blood Pressure [Right Brachial artery] O2 Saturation 95 96 99 04/26/24 04/26/24 04/26/24 00:49 04:47 07:41 Temperature 36.7 C 36.7 C 36.6 C Heart Rate Heart Rate [ 77 76 76 Brachial] Respiratory 18 18 18 Rate Blood Pressure Blood Pressure 144/72 H 129/58 L 158/70 H [Right Brachial artery] O2 Saturation 99 97 97 04/26/24 12:44 Temperature 36.7 C Heart Rate Heart Rate [ 72 Brachial] Respiratory 16 Rate Blood Pressure Blood Pressure 126/58 L [Right Brachial artery] O2 Saturation Oxygen O2 Source Room air I&O (Last 24 Hrs): Intake and Output Totals x24h 04/24/24 04/25/24 04/26/24 23:59 23:59 23:59 Intake Total 1100.0 2205.833 Output Total 400 Balance 1100.0 1805.833 General: Alert, Oriented x3, Cooperative, No acute distress Cardiovascular: Regular rate, Normal S1, Normal S2, No murmurs Respiratory: Chest non-tender, No respiratory distress, Breath sounds nml Abdomen: Normal bowel sounds, Soft, No tenderness, No hepatospenomegaly, No masses - Results Results: Laboratory Results WBC 4.9 x10^3/uL (4.8-10.8) 04/26/24 08:04 RBC 2.71 10^6/uL (4.20-5.40) L 04/26/24 08:04 Hgb 9.0 g/dL (12.0-16.0) L 04/26/24 08:04 Hct 28.1 % (37.0-47.0) L 04/26/24 08:04 MCV 103.7 fL (81.0-99.0) H 04/26/24 08:04 MCH 33.2 pg (27.0-31.0) H 04/26/24 08:04 MCHC 32.0 g/dL (32.0-36.0) 04/26/24 08:04 RDW 14.2 % (12.0-15.0) 04/26/24 08:04 Plt Count 139 10^3/uL (130-450) 04/26/24 08:04 MPV 11.0 fL (7.9-10.8) H 04/26/24 08:04 Neut # (Auto) 3.3 10^3/uL (1.5-6.6) 04/26/24 08:04 Lymph # (Auto) 0.9 10^3/uL (1.5-3.5) L 04/26/24 08:04 [place] # (Auto) 0.6 10^3/uL (0.0-1.0) 04/26/24 08:04 Eos # (Auto) 0.1 10^3/uL (0.0-0.7) 04/26/24 08:04 Baso # (Auto) 0.0 10^3/uL (0.0-0.1) 04/26/24 08:04 Absolute Nucleated RBC 0.00 x10^3/uL 04/26/24 08:04 Nucleated RBC % 0.0 /100WBC 04/26/24 08:04 Sodium 142 mmol/L (135-145) 04/26/24 08:04 Potassium 3.6 mmol/L (3.5-4.5) 04/26/24 08:04 Chloride 114 mmol/L (101-111) H 04/26/24 08:04 Carbon Dioxide 22 mmol/L (21-32) 04/26/24 08:04 Anion Gap 6.0 (6-13) 04/26/24 08:04 BUN 23 mg/dL (6-20) H 04/26/24 08:04 Creatinine 0.8 mg/dL (0.6-1.3) 04/26/24 08:04 Estimated GFR (MDRD) 68 (>89) L 04/26/24 08:04 Glucose 102 mg/dL (74-104) 04/26/24 08:04 Estimat Average Glucose 103 mg/dL (70-100) H 04/25/24 23:55 Hemoglobin A1c % 5.2 % (4.27-6.07) 04/25/24 23:55 Calcium 9.2 mg/dL (8.5-10.3) 04/26/24 08:04 Magnesium 1.4 mg/dL (1.7-2.3) L 04/26/24 08:04 Total Bilirubin 0.7 mg/dL (0.2-1.0) 04/26/24 08:04 AST 19 IU/L (10-42) 04/26/24 08:04 ALT 9 IU/L (10-60) L 04/26/24 08:04 Alkaline Phosphatase 70 IU/L (42-121) 04/26/24 08:04 Total Protein 5.8 g/dL (6.4-8.9) L 04/26/24 08:04 Albumin 3.7 g/dL (3.2-5.5) 04/26/24 08:04 Globulin 2.1 g/dL (2.1-4.2) 04/26/24 08:04 Albumin/Globulin Ratio 1.8 (1.0-2.2) 04/26/24 08:04 Triglycerides 155 mg/dL 04/25/24 23:55 Cholesterol 139 mg/dL (-200) 04/25/24 23:55 LDL Cholesterol, Calc 38 mg/dL (-129) 04/25/24 23:55 VLDL Cholesterol 31 mg/dL 04/25/24 23:55 HDL Cholesterol 70 mg/dL (60-) 04/25/24 23:55 LDL/HDL Ratio 0.5 (<4.4) 04/25/24 23:55 Cholesterol/HDL Ratio 2.0 (<4.4) 04/25/24 23:55 Lipase > 6000 U/L (11-82) H 04/25/24 08:24 TSH 1.04 uIU/mL (0.34-5.60) 04/25/24 23:55 Urine Color YELLOW 04/25/24 11:09 Urine Clarity CLEAR (CLEAR) 04/25/24 11:09 Urine pH 5.5 PH (5.0-7.5) 04/25/24 11:09 Ur Specific [place] 1.020 (1.002-1.030) 04/25/24 11:09 Urine Protein NEGATIVE mg/dL (NEGATIVE) 04/25/24 11:09 Urine Glucose (UA) NEGATIVE mg/dL (NEGATIVE) 04/25/24 11:09 Urine Ketones NEGATIVE mg/dL (NEGATIVE) 04/25/24 11:09 Urine Occult Blood NEGATIVE (NEGATIVE) 04/25/24 11:09 Urine Nitrite NEGATIVE (NEGATIVE) 04/25/24 11:09 Urine Bilirubin NEGATIVE (NEGATIVE) 04/25/24 11:09 Urine Urobilinogen 0.2 (NORMAL) E.U./dL (NORMAL) 04/25/24 11:09 Ur Leukocyte Esterase NEGATIVE (NEGATIVE) 04/25/24 11:09 Ur Microscopic Review NOT INDICATED 04/25/24 11:09 Urine Culture Comments NOT INDICATED 04/25/24 11:09 - Procedures Procedures: Procedures DRAINAGE OF PELVIC CAVITY WITH DRAIN DEV, OPEN APPROACH (12/25/20) EXCISION OF CECUM, PERCUTANEOUS ENDOSCOPIC APPROACH (12/25/20) EXCISION OF DUODENUM, ENDO, DIAGN (08/06/20) EXCISION OF ESOPHAGUS, ENDO, DIAGN (08/06/20) EXCISION OF STOMACH, ENDO, DIAGN (08/06/20) EXCISION OF STOMACH, PYLORUS, ENDO, DIAGN (08/06/20) INSPECTION OF PELVIC CAVITY, PERC ENDO APPROACH (12/25/20) IRRIGATION OF PERITONEAL CAVITY USING IRRIGAT, PERC APPROACH (12/25/20) REPLACEMENT OF LEFT LENS WITH SYNTH SUB, PERC APPROACH (12/15/15) REPLACEMENT OF RIGHT LENS WITH SYNTH SUB, PERC APPROACH (12/29/15)
[2024-04-27] MEDS ORDERED: HYDROcod/ACETAM 5/325 MG TABLET PO PRN (08:14)
[2024-04-27] MEDS: MAGNESIUM SULFATE 2 GRAM 2 GM/50 ML BAG IV ONE (08:56)
[2024-04-27] MEDS: SOLIFENACIN SUCCINATE 5 MG TABLET PO SCH (08:57)
--- NOTE | 2024-04-27 13:46 | PROVIDER PROGRESS NOTE ---
Assessment/Plan - Problem List (1) Pancreatitis Qualifiers: Chronicity: acute Pancreatitis type: unspecified pancreatitis type Acute pancreatitis complication: no infection or necrosis Qualified Code(s): K85.90 - Acute pancreatitis without necrosis or infection, unspecified Assessment/Plan: (1) Pancreatitis Qualifiers: Chronicity: acute Pancreatitis type: unspecified pancreatitis type Acute pancreatitis complication: no infection or necrosis Qualified Code(s): K85.90 - Acute pancreatitis without necrosis or infection, unspecified Assessment/Plan: --Continue IV LR. --Exact etiology is unknown. MRCP did not show evidence of gallstones. --Patient does have a follow up with GI in several weeks at [facility]. I instructed her to keep this appointment. --Tolerating a fat restricted diet. (2) Hypothyroidism Assessment/Plan: --Continue levothyroxine. (3) Pulmonary embolus Assessment/Plan: --Has not taken Xarelto in several months. Her lead sales consultant is aware. We will discontinue this medication. Dispo: Discharge anticipated in next 24-48 hours. Tolerating diet. PO pain medications. - Current Meds Current Meds: Current Medications Generic Name Dose Route Start Last Admin Trade Name Freq PRN Reason Stop Dose Admin Allopurinol 100 mg 04/26/24 09:00 04/27/24 08:57 Allopurinol 100 Mg Tablet PO 100 mg DAILY SAMANTHA Administration Levothyroxine Sodium 100 mcg 04/26/24 07:00 04/27/24 06:41 Levothyroxine 75 Mcg Tablet PO 100 mcg QDAC SAMANTHA Administration Losartan Potassium 25 mg 04/26/24 09:00 04/27/24 08:57 Losartan 50 Mg Tablet PO 25 mg DAILY SAMANTHA Administration Metoprolol Succinate 50 mg 04/26/24 09:00 04/27/24 08:57 Metoprolol Succinate 50 Mg Tablet PO 50 mg DAILY SAMANTHA Administration Ydurw-7-Myat Ethyl Esters 1 gm 04/26/24 09:00 04/27/24 08:57 [place]-3 Acid Ethyl Esters 1 Gm Capsule PO 1 gm DAILY SAMANTHA Administration Ondansetron HCl 4 mg 04/25/24 23:41 04/27/24 07:31 Ondansetron 4 Mg/2 Ml Vial IVP 4 mg Q6HR PRN Administration Nausea / Vomiting Pantoprazole Sodium 40 mg 04/26/24 09:00 04/27/24 08:56 Pantoprazole 40 Mg Tablet PO 40 mg DAILY SAMANTHA Administration Sodium Chloride 10 ml 04/26/24 01:00 04/27/24 07:32 Sodium Chloride Flush 0.9% 10 Ml Syringe IVP 20 ml 0100,0900,1700 SAMANTHA Administration Solifenacin 5 mg 04/27/24 09:00 04/27/24 08:57 Solifenacin Succinate 5 Mg Tablet PO 5 mg DAILY SAMANTHA Administration Ursodiol 250 mg 04/26/24 09:00 04/27/24 08:57 Ursodiol 250 Mg Tablet PO 250 mg DAILY SAMANTHA Administration - Lab Result Fish Bone Diagrams: 04/26/24 08:04 04/26/24 08:04 - Additional Planning My Orders: My Active Orders 04/27/24 08:14 HYDROcod/ACETAM 5/325 [[place] 5/325] 1 tab PO Q4HR PRN 04/27/24 09:00 Solifenacin Succinate [Vesicare] 5 mg PO DAILY 04/27/24 Lunch Low Fat Diet [DIET] Subjective - Subjective Patient Reports: Feeling Better, Resting Comfortably, No Complaints Objective Vital Signs: Vital Signs - 24 hr 04/26/24 04/26/24 04/26/24 16:10 20:25 23:43 Temperature 36.5 C 36.3 C L 36.6 C Heart Rate [ 60 58 L 63 Brachial] Respiratory 16 16 16 Rate Blood Pressure 133/62 H 146/63 H 153/68 H [Right Brachial artery] O2 Saturation 97 100 96 04/27/24 04/27/24 04/27/24 04:44 07:15 13:16 Temperature 36.6 C 36.7 C 36.8 C Heart Rate [ 76 68 61 Brachial] Respiratory 18 18 16 Rate Blood Pressure 132/62 H 150/70 H 124/54 L [Right Brachial artery] O2 Saturation 98 96 99 Oxygen O2 Source Room air I&O (Last 24 Hrs): Intake and Output Totals x24h 04/25/24 04/26/24 04/27/24 23:59 23:59 23:59 Intake Total 1100.0 3915.833 950 Output Total 900 200 Balance 1100.0 3015.833 750 General: Alert, Oriented x3, Cooperative, No acute distress Neuro: Alert, CN 2-12 Grossly Intact, Oriented Times 3 Cardiovascular: Regular rate, Normal S1, Normal S2, No murmurs Respiratory: Chest non-tender, No respiratory distress, Breath sounds nml Abdomen: Normal bowel sounds, Soft, No tenderness, No hepatospenomegaly, No masses - Results Results: Laboratory Results WBC 4.9 x10^3/uL (4.8-10.8) 04/26/24 08:04 RBC 2.71 10^6/uL (4.20-5.40) L 04/26/24 08:04 Hgb 9.0 g/dL (12.0-16.0) L 04/26/24 08:04 Hct 28.1 % (37.0-47.0) L 04/26/24 08:04 MCV 103.7 fL (81.0-99.0) H 04/26/24 08:04 MCH 33.2 pg (27.0-31.0) H 04/26/24 08:04 MCHC 32.0 g/dL (32.0-36.0) 04/26/24 08:04 RDW 14.2 % (12.0-15.0) 04/26/24 08:04 Plt Count 139 10^3/uL (130-450) 04/26/24 08:04 MPV 11.0 fL (7.9-10.8) H 04/26/24 08:04 Neut # (Auto) 3.3 10^3/uL (1.5-6.6) 04/26/24 08:04 Lymph # (Auto) 0.9 10^3/uL (1.5-3.5) L 04/26/24 08:04 [place] # (Auto) 0.6 10^3/uL (0.0-1.0) 04/26/24 08:04 Eos # (Auto) 0.1 10^3/uL (0.0-0.7) 04/26/24 08:04 Baso # (Auto) 0.0 10^3/uL (0.0-0.1) 04/26/24 08:04 Absolute Nucleated RBC 0.00 x10^3/uL 04/26/24 08:04 Nucleated RBC % 0.0 /100WBC 04/26/24 08:04 Sodium 142 mmol/L (135-145) 04/26/24 08:04 Potassium 3.6 mmol/L (3.5-4.5) 04/26/24 08:04 Chloride 114 mmol/L (101-111) H 04/26/24 08:04 Carbon Dioxide 22 mmol/L (21-32) 04/26/24 08:04 Anion Gap 6.0 (6-13) 04/26/24 08:04 BUN 23 mg/dL (6-20) H 04/26/24 08:04 Creatinine 0.8 mg/dL (0.6-1.3) 04/26/24 08:04 Estimated GFR (MDRD) 68 (>89) L 04/26/24 08:04 Glucose 102 mg/dL (74-104) 04/26/24 08:04 Estimat Average Glucose 103 mg/dL (70-100) H 04/25/24 23:55 Hemoglobin A1c % 5.2 % (4.27-6.07) 04/25/24 23:55 Calcium 9.2 mg/dL (8.5-10.3) 04/26/24 08:04 Magnesium 1.4 mg/dL (1.7-2.3) L 04/26/24 08:04 Total Bilirubin 0.7 mg/dL (0.2-1.0) 04/26/24 08:04 AST 19 IU/L (10-42) 04/26/24 08:04 ALT 9 IU/L (10-60) L 04/26/24 08:04 Alkaline Phosphatase 70 IU/L (42-121) 04/26/24 08:04 Total Protein 5.8 g/dL (6.4-8.9) L 04/26/24 08:04 Albumin 3.7 g/dL (3.2-5.5) 04/26/24 08:04 Globulin 2.1 g/dL (2.1-4.2) 04/26/24 08:04 Albumin/Globulin Ratio 1.8 (1.0-2.2) 04/26/24 08:04 Triglycerides 155 mg/dL 04/25/24 23:55 Cholesterol 139 mg/dL (-200) 04/25/24 23:55 LDL Cholesterol, Calc 38 mg/dL (-129) 04/25/24 23:55 VLDL Cholesterol 31 mg/dL 04/25/24 23:55 HDL Cholesterol 70 mg/dL (60-) 04/25/24 23:55 LDL/HDL Ratio 0.5 (<4.4) 04/25/24 23:55 Cholesterol/HDL Ratio 2.0 (<4.4) 04/25/24 23:55 Lipase > 6000 U/L (11-82) H 04/25/24 08:24 TSH 1.04 uIU/mL (0.34-5.60) 04/25/24 23:55 Urine Color YELLOW 04/25/24 11:09 Urine Clarity CLEAR (CLEAR) 04/25/24 11:09 Urine pH 5.5 PH (5.0-7.5) 04/25/24 11:09 Ur Specific [place] 1.020 (1.002-1.030) 04/25/24 11:09 Urine Protein NEGATIVE mg/dL (NEGATIVE) 04/25/24 11:09 Urine Glucose (UA) NEGATIVE mg/dL (NEGATIVE) 04/25/24 11:09 Urine Ketones NEGATIVE mg/dL (NEGATIVE) 04/25/24 11:09 Urine Occult Blood NEGATIVE (NEGATIVE) 04/25/24 11:09 Urine Nitrite NEGATIVE (NEGATIVE) 04/25/24 11:09 Urine Bilirubin NEGATIVE (NEGATIVE) 04/25/24 11:09 Urine Urobilinogen 0.2 (NORMAL) E.U./dL (NORMAL) 04/25/24 11:09 Ur Leukocyte Esterase NEGATIVE (NEGATIVE) 04/25/24 11:09 Ur Microscopic Review NOT INDICATED 04/25/24 11:09 Urine Culture Comments NOT INDICATED 04/25/24 11:09 - Procedures Procedures: Procedures DRAINAGE OF PELVIC CAVITY WITH DRAIN DEV, OPEN APPROACH (12/25/20) EXCISION OF CECUM, PERCUTANEOUS ENDOSCOPIC APPROACH (12/25/20) EXCISION OF DUODENUM, ENDO, DIAGN (08/06/20) EXCISION OF ESOPHAGUS, ENDO, DIAGN (08/06/20) EXCISION OF STOMACH, ENDO, DIAGN (08/06/20) EXCISION OF STOMACH, PYLORUS, ENDO, DIAGN (08/06/20) INSPECTION OF PELVIC CAVITY, PERC ENDO APPROACH (12/25/20) IRRIGATION OF PERITONEAL CAVITY USING IRRIGAT, PERC APPROACH (12/25/20) REPLACEMENT OF LEFT LENS WITH SYNTH SUB, PERC APPROACH (12/15/15) REPLACEMENT OF RIGHT LENS WITH SYNTH SUB, PERC APPROACH (12/29/15)
[2024-04-28 07:44] LABS: BASOPHILS % (AUTO) 0.9 %; EOSINOPHILS # (AUTO) 0.2 10^3/uL (0.0-0.7); EOSINOPHILS % (AUTO) 4.4 %; HCT - HEMATOCRIT 29.8 % (37.0-47.0); HGB - HEMOGLOBIN 9.7 g/dL (12.0-16.0); LYMPHOCYTES # (AUTO) 0.8 10^3/uL (1.5-3.5); LYMPHOCYTES % (AUTO) 23.4 %; MEAN CORPUSCULAR HEMOGLOBIN 33.9 pg (27.0-31.0); MEAN CORPUSCULAR HGB CONC 32.6 g/dL (32.0-36.0); MEAN CORPUSCULAR VOLUME 104.2 fL (81.0-99.0); MEAN PLATELET VOLUME 11.2 fL (7.9-10.8); MONOCYTES # (AUTO) 0.4 10^3/uL (0.0-1.0); MONOCYTES % (AUTO) 12.1 %; NEUTROPHILS % (AUTO) 58.9 %; PLT - PLATELET COUNT 150 10^3/uL (130-450); RED BLOOD COUNT 2.86 10^6/uL (4.20-5.40); RED CELL DISTRIBUTION WIDTH 13.8 % (12.0-15.0); WHITE BLOOD COUNT 3.4 x10^3/uL (4.8-10.8)
[2024-04-28 07:55] LABS: CALCIUM 9.2 mg/dL (8.5-10.3); CREATININE 0.9 mg/dL (0.6-1.3); POTASSIUM 3.9 mmol/L (3.5-4.5)
--- NOTE | 2024-04-28 09:10 | Discharge Plan ---
Discharge Plan Problem Reviewed?: Yes Disposition: Home, Self Care Condition: Stable Diet: Regular Activity Restrictions: Activity as Tolerated Additional Instructions or Follow Up instructions: Please keep your appointment with GI at [facility]. No Smoking: If you smoke, Please STOP! Call for help.
[2024-04-28 10:16] VITALS: BP 126/67; O2SAT 97
--- NOTE | 2024-04-28 11:25 | DISCHARGE SUMMARY ---
Discharge Summary Admit Date: 04/26/24 Discharge Date: 04/28/24 Discharging Provider: Daljit Lal Code Status: Attempt Resuscitation Condition at Discharge: Good Discharge Disposition: 01 Home, Self Care - HPI History of Present Illness: pt with h/o gallstone pancreatitis presents with acute abdominal pain, nausea, vomiting for past several days without clear inciting factors. she states she has had similar symptoms in the past without any evidence of obstruction as well. no fevers but has chills. no chest pain. denies diarrhea. - HOSPITAL COURSE Hospital Course: Patient is an 89-year-old female presented to the ED due to complaints of abdominal pain. CT abdomen/pelvis performed which revealed evidence of pancreatitis. This was followed up with an MRCP which showed no evidence of obstructing gallstones. Patient was admitted and started on medical management with IV fluids. Her diet was gradually advanced until she was able to tolerate a low-fat diet. Patient reported that she had a follow-up in [facility] with gastroenterology coming up due to concern for gastrointestinal bleeding. 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 Patient was subsequently discharged home after pain resolved and she was eating. A lipid panel was obtained while inpatient which was negative for hypertriglyceridemia. - ALLERGIES Allergies/Adverse Reactions: Allergies Allergy/AdvReac Type Severity Reaction Status Date / Time meperidine HCl * Allergy Intermediate Hives Verified 04/25/24 08:15 [From Demerol] Iodine and Iodide Containing Allergy Mild Rash Verified 04/25/24 08:15 Produc - MEDICATIONS Home Medications: Ambulatory Orders Medication Instructions Recorded Confirmed Tolterodine Tartrate [Detrol LA] 2 mg PO DAILY 01/11/15 04/26/24 Valsartan [Diovan] 80 mg PO DAILY 08/05/20 04/26/24 Levothyroxine Sodium [Synthroid] 100 mcg PO QDAC 12/25/20 04/26/24 Metoprolol Succinate [Toprol Xl] 50 mg PO DAILY 08/01/21 04/26/24 Pantoprazole [Protonix] 40 mg PO DAILY 01/04/23 04/26/24 allopurinoL [Zyloprim] 100 mg PO DAILY 01/04/23 04/26/24 ursodioL [Actigall] 300 mg PO TID 04/16/24 04/26/24 Baclofen [Lioresal] 10 mg PO DAILY 04/26/24 04/26/24 Furosemide [Lasix] 2 tab PO DAILY 04/26/24 04/26/24 Meloxicam 1 tab PO DAILY 04/26/24 04/26/24 Pimecrolimus [Elidel] 1 applic TOP BID PRN 04/26/24 04/26/24 Potassium Chloride 1 tab PO DAILY 04/26/24 04/26/24 - PHYSICAL EXAM AT DISCHARGE General Appearance: positive: No acute distress, Alert Respiratory: positive: Chest non-tender, No respiratory distress Cardiovascular: positive: Regular rate & rhythm, No murmur, No gallop Abdomen: positive: Non-tender, No organomegaly, Nml bowel sounds Neurologic/Psychiatric: positive: Oriented x3, CN's nml (2-12) - LABS Result Diagrams: 04/28/24 07:24 04/28/24 07:24 - FOLLOW UP Follow Up: Follow up with PCP and gastroenterology. - TIME SPENT Time Spent in Discharge (Minutes): 30
[2024-04-29] MEDS ORDERED: LEVOTHYROXINE 100 MCG TABLET PO SCH (07:00)
== END 2024-04-28 10:13 | disposition home or self-care (01) | DRG 440 ==
LOC: ED 08:03 → MS2 23:41 → OBSVTOIN 04-26 10:37
PROVIDERS: ADMIT Student in an Organized Health Care Education/Training Program; ATTEND Family Medicine
DX: K85.90 Acute pancreatitis without necrosis or infection, unspecified (principal); E86.0 Dehydration; K85.00 Idiopathic acute pancreatitis without necrosis or infection; I10 Essential (primary) hypertension; E03.9 Hypothyroidism, unspecified; K21.9 Gastro-esophageal reflux disease without esophagitis; Z86.711 Personal history of pulmonary embolism; Z79.01 Long term (current) use of anticoagulants
CPT/HCPCS: 36415; 74176; 74183; 80048; 80053; 80061; 81003; 83036; 83690; 83735; 84443; 85025; 96361; 96374; 96375; 96376; 99285; A9270; G0378; J1170; J7120; 81001; 83721; 87086

== ENCOUNTER 2024-05-05 09:37 | Outpatient (CLI) | payer MEDICARE, OTHER ==
[2024-05-05 09:54] LABS: BASOPHILS # (AUTO) 0.1 10^3/uL (0.0-0.1); BASOPHILS % (AUTO) 1.6 %; EOSINOPHILS # (AUTO) 0.1 10^3/uL (0.0-0.7); EOSINOPHILS % (AUTO) 1.8 %; HCT - HEMATOCRIT 33.7 % (37.0-47.0); HGB - HEMOGLOBIN 10.7 g/dL (12.0-16.0); LYMPHOCYTES # (AUTO) 0.9 10^3/uL (1.5-3.5); LYMPHOCYTES % (AUTO) 24.2 %; MEAN CORPUSCULAR HGB CONC 31.8 g/dL (32.0-36.0); MEAN PLATELET VOLUME 10.1 fL (7.9-10.8); MONOCYTES # (AUTO) 0.7 10^3/uL (0.0-1.0); MONOCYTES % (AUTO) 17.2 %; NEUTROPHILS # (AUTO) 2.1 10^3/uL (1.5-6.6); NEUTROPHILS % (AUTO) 54.9 %; PLT - PLATELET COUNT 194 10^3/uL (130-450); RED BLOOD COUNT 3.24 10^6/uL (4.20-5.40); RED CELL DISTRIBUTION WIDTH 13.6 % (12.0-15.0); WHITE BLOOD COUNT 3.8 x10^3/uL (4.8-10.8)
[2024-05-05 10:16] LABS: ALBUMIN 4.3 g/dL (3.2-5.5); ALBUMIN/GLOBULIN RATIO 1.7 (1.0-2.2); BILIRUBIN,TOTAL 0.4 mg/dL (0.2-1.0); CALCIUM 9.9 mg/dL (8.5-10.3); CREATININE 1.1 mg/dL (0.6-1.3); MAGNESIUM 1.6 mg/dL (1.7-2.3); POTASSIUM 4.1 mmol/L (3.5-4.5); TOTAL PROTEIN 6.9 g/dL (6.4-8.9)
[2024-05-05 10:30] LABS: FERRITIN 145.6 ng/mL (11.0-306.8)
== END 2024-05-05 09:38 | disposition home or self-care (01) ==
LOC: LAB 09:37
PROVIDERS: ATTEND Physician Assistant Medical
DX: N18.9 Chronic kidney disease, unspecified (principal); D50.9 Iron deficiency anemia, unspecified; E83.42 Hypomagnesemia; K85.90 Acute pancreatitis without necrosis or infection, unspecified
CPT/HCPCS: 36415; 80053; 82728; 83690; 83735; 85025

== ENCOUNTER 2024-07-11 16:45 | Outpatient (CLI) | payer MEDICARE, OTHER ==
[2024-07-11 17:25] LABS: CREATININE 1.1 mg/dL (0.6-1.3); POTASSIUM 4.2 mmol/L (3.5-4.5)
== END 2024-07-11 16:46 | disposition home or self-care (01) ==
LOC: LAB 16:45
PROVIDERS: ATTEND Physician Assistant
DX: U07.1 COVID-19 (principal)
CPT/HCPCS: 36415; 80048